=== PATIENT | female | born 1955 | race Caucasian/White ===

== ENCOUNTER → 2019-04-10 14:51 | Outpatient (CLI) | payer OTHER, SELFPAY ==
[2019-04-10 15:27] LABS: Add Manual Diff / Slide Review NO; Basophils Absolute Auto 100 /uL (0-100); Basophils Percent Auto 1.5 % (0-2); Eosinophils Absolute Auto 200 /uL (0-450); Eosinophils Percent Auto 3.2 % (2-4); Hematocrit 42.2 % (36-46); Lymphocytes Absolute Auto 2700 /uL (1100-4500); Lymphocytes Percent Auto 39.1 % (25-40); Mean Corpuscular HGB Conc 35.6 % (30-36); Mean Corpuscular Hemoglobin 35.4 PG (26-34); Mean Corpuscular Volume 99.4 fL (80-100); Monocytes Absolute Auto 400 /uL (0-900); Monocytes Percent Auto 6.5 % (3-14); Neutrophils Absolute Auto 3500 /uL (1500-7000); Neutrophils Percent Auto 49.7 % (50-75); Platelet Count 287 X10^3/uL (150-400); Red Blood Cell Count 4.24 X10^6/uL (4.0-5.2); Red Cell Distribution Width 12.9 % (11.6-14.8); White Blood Cell Count 6.9 X10^3/uL (4.5-11.0)
[2019-04-10 17:22] LABS: BUN Creatinine Ratio 22.5 (6-22); Blood Urea Nitrogen 9 mg/dL (7-17); Calcium 10.1 mg/dL (8.4-10.2); Carbon Dioxide 27 mmol/L (22-32); Chloride 101 mmol/L (98-107); Estimated Glomerular Filt Rate > 60.0 mL/min (>60); Glucose 90 mg/dL (80-110); HEMOLYSIS < 15 (0-50); Potassium 3.7 mmol/L (3.4-5.1); Sodium 136 mmol/L (137-145)
== END ==
PROVIDERS: Family Provider Family Medicine; PCP Family Medicine; Visit Provider Orthopaedic Surgery
DX: Z01.818 Encounter for other preprocedural examination (principal)
CPT/HCPCS: 36415; 80048; 85025

== ENCOUNTER 2019-04-14 05:52 | Inpatient (IN) | payer OTHER, SELFPAY ==
[2019-04-12 07:58] VITALS: BMI 22.3
[2019-04-14] VITALS (18 sets, daily range): BP systolic 90–127; BP diastolic 45–79; PULSE 67–86; RESP 10–18; TEMP 36–36.9; O2SAT 92–100; BMI 22.3
--- NOTE | 2019-04-14 | DI.RAD.S_ITS ---
PROCEDURE: XR LUMBAR SPINE 2-3V INDICATIONS: L5-S1 TLIF TECHNIQUE: 2 views of the lumbar spine were acquired. COMPARISON: None. FINDINGS: 2 spot fluoroscopic intraoperative views demonstrating L5-S1 posterior spinal fixation with interbody cage graft. Dictated by: Ethan Paulson M.D. on 04/14/2019 at 12:19 Approved by: Ethan Paulson M.D. on 04/14/2019 at 12:21
[2019-04-14] MEDS: ACETAMINOPHEN 325 MG TABLET 975 MG PO (07:02)
[2019-04-14] MEDS: LACTATED RINGERS 1,000 ML 42 ML IV ×2 (07:03→09:18)
[2019-04-14] MEDS: GABAPENTIN 300 MG CAPSULE PO ×2 (07:03→20:49)
--- NOTE | 2019-04-14 07:24 | PM.PREOP ---
Pre-operative Note Interval Note History & Physical reviewed/Exam performed by Physician: Yes Changes to H&P: No
[2019-04-14] MEDS: MIDAZOLAM 2 MG/2 ML VIAL IV (07:40)
[2019-04-14] MEDS: CLINDAMYCIN 600 MG/50 ML PIGGYBACK 50 MG IV ×3 (07:45→23:57)
--- NOTE | 2019-04-14 08:26 | SUR.OPER ---
Prone on spine table, head in foam head support, padded chest and pelvic supports, gel pad at knees, lower legs supported by pillows; nipples, genitalia and toes free of pressure, arms secured on foam padded arm boards at <90 degrees abduction. Tape over blanket at thigh secured to table.
[2019-04-14] MEDS: SODIUM CHLORIDE 0.9% 1,000 ML, GENTAMICIN 80 MG IRR (08:38)
[2019-04-14] MEDS: VANCOMYCIN 1,000 MG VIAL 1000 MG TOP (08:38)
[2019-04-14] MEDS: THROMBIN (RECOMBINANT) 5,000 UNIT VIAL 5000 UNIT TOP (08:39)
[2019-04-14] MEDS: BUPIVACAINE 0.5% (PF) 4 ML, MORPHINE-PF 4 MG, BUTORPHANOL 1 MG, fentaNYL 100 MCG INJ (08:40)
--- NOTE | 2019-04-14 09:33 | PC.NURSE ---
Day shift: Pt not on AC unit at this time.
--- NOTE | 2019-04-14 10:18 | PM.OP.1 ---
Operative Date/Time/Diagnoses Date of procedure: 04/14/19 Time of procedure: 10:18 Pre-op diagnosis: Lumbar stenosis with radiculopathy Post-op diagnosis: same Procedure & Clinicians Procedure: L5-S1 TLIF (post/post innerbody fusion) with cage L5, S1 screws Iliac crest bone graft aspirate L2-3, L5-S1 laminectomies Use of microscope Placement of epidural catheter Same procedure as scheduled: Yes Indications: [age] year old female with intractable pain from stenosis. They had failed conservative management and requested operative intervention. Risks and benefits of surgery were discussed and appropriate consents were obtained. Surgeon: [facility] Nurse Practitioner: Aurora Segundo Anesthesia Type: General Operative Notes Findings: None Closure Type: primary Specimen(s): none sent Prosthetic devices, grafts, tissues, transplants, or devices: NuVasive MAS Reline screws Globus Rise cage Applied: catheter Estimated Blood Loss (mL): 10 Blood products transfused: none Procedure in detail: The patient was brought to the operating room and intubated on the table. A time-out was performed. They were then rolled over to the well-padded Charlie table in the prone position. Preoperative antibiotics were given. The back was prepped and draped in the standard sterile fashion. Using fluoroscopy, a 4 cm longitudinal incision was made to the right of the midline. We used Bovie to come down to and split the lumbodorsal fascia. Using fluoroscopy and monitoring, we then percutaneously placed Jamshidi needles down the pedicles of L5 and S1 on the right side. These were changed out to guidewires and then we tapped and then placed the NuVasive MAS Reline screw shanks. We then opened up the retractors and used Bovie to clear up the posterolateral gutter as well as medially along the lamina to the spinous processes. A bur was used to decorticate the transverse processes. We brought in the microscope. Using a combination of bur and Kerrison rongeurs, a laminectomy was performed from the right side. We cleared over past the midline and carefully depressed the dura until we were able to decompress the opposite side. We cleared out the neural foramen. This required a facetectomy to open up the foramen. This completed the laminectomy at L5-S1, which was separate and distinct from a standard approach for the interbody work as we had to decompress the nerves. We cleared up the remainder of the facet so that we would have a working channel at this point and could easily retract the exiting root as well as clearing medially below the dura and expose the disc space. The disc was prepped with bipolar and then an annulotomy was performed. We performed a diskectomy using a combination of paddles, tyler, pituitaries, and curettes. We distracted the disc using a paddle and locked the retractor in an open position. We then filled the disc space with Osteocel bone graft. We then placed the globus Rise cage under fluoroscopy and then filled this in with more bone graft. The distraction on the retractor was released to compress down. This completed the posterior interbody fusion portion of the TLIF at L5-S1. We then placed the screw heads, lea, and locked down the set screws. The wound was copiously irrigated. A small stab incision was made over the PSIS. We used a Jamshidi needle to aspirate several mL of bone marrow from the pelvis. This was mixed with the remaining Osteocel and combined with all of the locally harvested bone graft and placed in the posterolateral gutter for the posterior fusion of the TLIF at L5-S1. We then used fluoroscopy and made a 3 cm midline incision over L2-3. Bovie was used to dissect down on the right-hand side. We placed a marker to confirm our positioning. We brought in the microscope. A right-sided laminectomy was performed at L2-3. We carefully reached across and cleared the opposite side as well as out to the neural foramen until the canal was opened and checked with a ball probe. The wound was irrigated. An epidural catheter was then placed in the spinal canal by carefully depressing the dura and advancing it 6 cm cephalad under the remaining lamina without resistance. The muscle fascia was closed. The catheter was then injected with a solution containing 4 mL of 0.5% Marcaine, 1 mg Stadol, 4 mg Duramorph, and 100 mcg of fentanyl. This was injected without resistance and the catheter was pulled. We then went to the opposite side. Again using fluoroscopy, a 3 cm incision was made and Bovie was used to come down to split the fascia. Using neural monitoring and fluoroscopy, Jamshidi needles were advanced down the pedicles of L5 and S1 on the left side. These were switched over guidewires, tapped, and screws placed. We then placed a lea and locked the set screws on this side. The wound was irrigated. The fascia was closed. Vancomycin powder was placed in the wounds. The superficial and skin were closed. A sterile dressing was placed. The patient was then rolled over extubated and brought to recovery room without complications. Complications: none Post-operative Condition: stable Disposition: PACU Plan for aftercare: Inpatient. Up with physical therapy.
[2019-04-14] MEDS: fentaNYL 100 MCG/2 ML INJ 25 MCG IV (10:44)
[2019-04-14] MEDS: LORazepam 2 MG/ML INJ 0.25 MG IV (11:00)
--- NOTE | 2019-04-14 11:45 | PC.NURSE ---
Day shift: Pt on unit at approx 1145 from PACU. Report from PACU Pt Hx anxiety. Also Pt made attempts to get OOB. Will continue to monitor. BASILIA Collins is admitting Pt.
[2019-04-14] MEDS: LORazepam 0.5 MG TABLET 0.25 MG PO ×2 (12:09→20:51)
[2019-04-14] MEDS: FLUoxetine 20 MG CAPSULE PO (12:09)
[2019-04-14] MEDS: LACTATED RINGERS 1,000 ML 125 ML IV ×2 (12:09→20:50)
[2019-04-14] MEDS: CELECOXIB 200 MG CAPSULE 400 MG PO (12:09)
--- NOTE | 2019-04-14 13:12 | PC.NURSE ---
Day shift: Pt in and out of sleep. When waking up during the first hour on AC unit Pt very confused and wanting to go home as well as not knowing why she is here. Spouse at bedside for support. Pt uncomfortable and repostioned by this ghost writer and SPRAY WORKER to right side-lying postion and Pt has been asleep for approx 45 minutes now. VS WNL. SpO2 95% RA. Call light in reach. Spouse remain at bedside. international specialist made aware that Pt has been confused. May need to change room to one closer to RN stations. Will continue to monitor.
[2019-04-14] MEDS: HYDROCODONE/ACET 5/325 TABLET 2 TAB PO ×3 (13:35→20:51)
[2019-04-14] MEDS: hydrOXYzine pamoate 25 MG CAPSULE PO ×2 (13:35→23:52)
--- NOTE | 2019-04-14 14:00 | PM.CHAP ---
saw chaplain jeffries on notes. I stopped in and spoke with patient's . Patient was resting.
--- NOTE | 2019-04-14 14:46 | PT.IIE ---
Current Diagnoses Spinal stenosis, lumbar region with neurogenic claudication (04/14/19) Surgery Performed Operation Date: 04/14/19 07:45 Actual Procedures p L23 & L5S1 laminectomies, L5S1 posterior instrumented fusion (TLIF) w/ bone graft(Not Applicable) - Andi Zamarripa MD Surgical History (Last Updated 04/12/19 @ 08:09 by Jeimy Sparrow RN) History of colonoscopy (Acute) Hx of cholecystectomy (Acute) Hx of shoulder surgery (Acute) S/P epidural steroid injection (Acute) Medical History (Last Updated 04/12/19 @ 08:09 by Jeimy Sparrow RN) Anxiety (Acute) Arthritis (Acute) Colitis (Acute) Depression (Acute) GERD (gastroesophageal reflux disease) (Acute) GI bleed (Acute 10/12/13) H/O: hysterectomy (Acute) HLD (hyperlipidemia) (Acute) HTN (hypertension) (Acute) Physical Therapy Inpatient Evaluation/Re-Eval M1 PT/OT-IP Prior Functional Status Start: 04/14/19 16:57 Freq: NEEDED Status: Active Protocol: Document 04/14/19 14:46 AB (Rec: 04/14/19 17:11 AB [id number]) Medical Review Prior Functional Status Medical History Reviewed Yes Communication pt is sleepy; able to answer questions but not consistently but pt requested to get up. Mobility and Gait spouse stated that pt is independent with all mobilities and ambulation without AD Social History Household Members spouse Living Arrangements House Number of Floors (Floors) One Floor Number of Stairs To Enter/Railing? 5 steps to enter with L rail ascending Home Environment Standard Height Toilet,Tub/ Shower Home Equipment Straight Cane,Raised Toilet Seat w/Armrests,Tub Transfer Bench,Hand Held Shower,Grab Bars In Shower Employment Status Retired Additional Social History Comment spouse stated that pt has a walk in shower but there's a tub shower that is set up for pt's mother and pt can use since it is set up with the necessary equipement M2 PT-IP Current Condition Start: 04/14/19 16:57 Freq: NEEDED Status: Active Protocol: Document 04/14/19 14:46 AB (Rec: 04/14/19 17:11 AB [id number]) Physical Therapy Current Condition Current Condition Evaluation Date 04/14/19 Treatment Diagnosis s/p L5S1 TLIF; L2-3, L5S1 lami ; difficulty in walking Onset Date 04/14/19 Precautions Lumbar Precautions Log Roll,No Twisting,Limit Bending,Lifting Restriction of 10 lbs,Gait Belt above Incisional Area M3 PT-IP Subjective Start: 04/14/19 16:57 Freq: NEEDED Status: Active Protocol: Document 04/14/19 14:46 AB (Rec: 04/14/19 17:11 AB [id number]) Subjective Physical Therapy Visit Type Type Initial Evaluation Visit Start Time 14:46 Visit Stop Time 15:29 Total Visit Minutes 45 Number of PAN DEVULCANIZER HELPER Visits 0 Physical Therapy Visit Comments Patient Comments pt requested to get up from the bed Therapy Pain Assessment Pain When Pain Assessed During Mobility Pain Present Pain Present Pain Reported Location Lower Back Intensity 8 Scale Used Numeric (1 - 10) Pain Behaviors Guarding,Holding Area Pain Management Techniques Modification of Treatment,Re- positioning,Timing of Activity with Medications M4 PT-IP Mobility and Gait Start: 04/14/19 16:57 Freq: NEEDED Status: Active Protocol: Document 04/14/19 14:46 AB (Rec: 04/14/19 17:11 AB [id number]) PT-Bed Mobility Assessment Rolling Type of Rolling Log Rolling Level of Assist Maximal Assistance,1 Person Assistance Supine to Sit Supine to Sit Maximum Assistance Sit to Supine Sit to Supine Total Assistance,2 Person Assistance PT-Transfer Assessment Comments Mobility Comments BP supine 93/58. pt completed supine to sit max A and max cues for log roll bed mobility . pt was able to sit on EOB mod to max A to maintain sitting balance. pt became nonresponsive and seemed to doze off. call for nurse. pt woke up again. BP in sitting 117/68. pt unable to follow directions consistently and tends to doze off and when woken up becomes impulsive and with confusion. assist pt back in bed. completed sit to supine total A x 2 and max cues. positioned pt in bed. required max A for rolling L<> R while adjusted pad. call light and table placed within reach. left pt with spouse. PT-Balance Assessment Sitting Balance and Reactions Static Sitting Balance Ability Poor Dynamic Sitting Balance Ability Poor M5 PT-IP Objective Assessments Start: 04/14/19 16:57 Freq: NEEDED Status: Active Protocol: Document 04/14/19 14:46 AB (Rec: 04/14/19 17:11 AB [id number]) Orientation Orientation/Cognition Level of Alertness Lethargic Orientation Name Safety Awareness Decreased Safety Awareness Memory Description Short Term Impaired,Detention Impaired Gross Range of Motion Lower Extremity ROM Assessment Within Functional Limits Strength Lower Extremity Strength Assessment Bilaterally Impaired Hip 3+/5 Knee 3+/5 Muscle Tone Muscle Tone WNL Yes M6 PT-IP Treatment Start: 04/14/19 16:57 Freq: NEEDED Status: Active Protocol: Document 04/14/19 14:46 AB (Rec: 04/14/19 17:11 AB [id number]) Physical Therapy Treatment Education Education Provided Precautions,Weight Bearing Status,Post-Op Packet,Safety M7 PT-IP Assessment and Plan Start: 04/14/19 16:57 Freq: NEEDED Status: Active Protocol: Document 04/14/19 14:46 AB (Rec: 04/14/19 17:11 AB [id number]) PT Summary Assessment and Plan Potential Rehabilitation Potential Fair Status of Condition at Evaluation Evolving Summary Impairments Pain,ROM,Strength,Balance, Coordination,Sensation,Tone, Cognition,Bed Mobility, Transfers,Gait,Activity Tolerance Assessment Summary pt unable to participate much for PT and is lethargic but restless in bed. attempted to get pt up upon request but unable as pt dozes off during PT session and unable to safely follow instructions. nurse stated that pt has gotten her pain meds and is contributing to current decrease level of alertness. will have to continue to assess pt's mobility and safety. Goals Bed Mobility Goal Standby Assistance Transfer Goal Standby Assistance,Front Wheeled Walker Gait Goal Standby Assistance,Front Wheel Walker Gait Distance 150 Other Goals up/down 5 steps L rail ascending SBA Days to Meet Goals 5 Frequency of Treatment Frequency Of Treatment Twice a Day Treatment Plan Physical Therapy Treatment Plan Bed Mobility Training,Transfer Training,Gait Training, Therapeutic Exercise,Balance Retraining,Post Op Education, Discharge Planning,Hot or Cold Pack,Neuromuscular Re-ed, Coordination Retraining,Manual Therapy Recommendations To Nursing Amount of Assist Needed PT/OT Assist Only,Mechanical Lift Discharge Recommendations PT Discharge Recommendations Home with 24/7 Assist,Home Health,SNF Rehab Other Discharge Recommendations depending on progress: SNF vs home with 24/7 and homehealth PT Equipment Needed for Home Before FWW Discharge
[2019-04-14] MEDS: diphenhydrAMINE 25 MG TABLET PO (20:49)
[2019-04-14] MEDS: SENNOSIDES 8.6 MG TABLET 17.2 MG PO (20:49)
[2019-04-14] MEDS: DOCUSATE 100 MG CAPSULE PO (20:49)
[2019-04-14] MEDS: CELECOXIB 200 MG CAPSULE PO (20:49)
--- NOTE | 2019-04-14 21:14 | PC.NURSE ---
PATIENT IS ROLLING SIDE TO SIDE WELL, PAIN MANAGED WITH NORCO x2, BENADRYL GIVEN FOR ITCH.PERKINS PATENT.SCDS IN PLACE FUNCTIONING
[2019-04-14] MEDS: HYDROMORPHONE 1 MG INJ 0.5 MG IV (23:52)
[2019-04-15] VITALS (7 sets, daily range): BP systolic 102–119; BP diastolic 55–78; PULSE 73–84; RESP 15–20; TEMP 36.3–37; O2SAT 93–97
[2019-04-15] MEDS: HYDROCODONE/ACET 5/325 TABLET 2 TAB PO (01:39)
[2019-04-15] MEDS: HYDROMORPHONE 1 MG INJ 0.5 MG IV ×4 (05:52→16:06)
[2019-04-15] MEDS: hydrOXYzine pamoate 25 MG CAPSULE PO ×2 (05:55→18:20)
[2019-04-15] MEDS: LACTATED RINGERS 1,000 ML 125 ML IV ×2 (05:57→14:53)
[2019-04-15 06:06] LABS: Hematocrit 35.3 % (36-46); Hemoglobin 12.5 g/dL (12.0-16.0)
[2019-04-15 06:09] LABS: Blood Urea Nitrogen 6 mg/dL (7-17); Calcium 8.4 mg/dL (8.4-10.2); Carbon Dioxide 31 mmol/L (22-32); Chloride 96 mmol/L (98-107); Estimated Glomerular Filt Rate > 60.0 mL/min (>60); Glucose 91 mg/dL (80-110); HEMOLYSIS < 15 (0-50)
[2019-04-15 06:31] LABS: Sodium 132 mmol/L (137-145)
--- NOTE | 2019-04-15 07:55 | PM.PNPO.1 ---
Subjective Subjective Date Patient Seen: 04/15/19 Time Patient Seen: 07:55 Interval history: She has had a rough night with pain. Primarily across the back into the buttocks. No radiation going down the legs. Currently pain is 9.5/10 Exam Vital Signs (past 8 hours): - 04/15/19 03:49 Temperature 98.6 F Pulse Rate 74 Respiratory Rate 18 Blood Pressure 102/55 L Pulse Oximetry 93 Oxygen Delivery Method Nasal Cannula Oxygen Flow Rate 2 Const Orientation: alert and oriented x3 Back/Spine/Pelvis Other: Mild dry drainage. 5/5 motor both lower extremities Objective Labs Result Diagrams: 04/15/19 05:40 04/15/19 05:40 Labs: Laboratory Results - last 24 hr 04/15/19 04/15/19 05:40 05:40 Hgb 12.5 Hct 35.3 L Sodium 132 L Potassium 3.0 L Chloride 96 L Carbon Dioxide 31 BUN 6 L Creatinine 0.40 L Estimated GFR > 60.0 BUN/Creatinine Ratio 15.0 Glucose 91 Calcium 8.4 Assessment & Plan Post-op Postoperative Procedures: Procedures Operation Date: 04/14/19 07:45 Actual Procedures Side Surgeon p L23 & L5S1 laminectomies, L5S1 posterior instrumented fusion (TLIF) w/ bone graft Not Applicable Andi Zamarripa MD She is having issues with pain control. She has maxed out on her Vicodin. We are going to change her over to oxycodone so that we can get her some more medication without worrying about Tylenol. Continue to mobilize with physical therapy. Anticipate discharge home in the next 1-2 days. Hypokalemia-will start her on oral replacements and check again in the morning.
[2019-04-15] MEDS: ACETAMINOPHEN 325 MG TABLET 650 MG PO ×2 (08:27→16:06)
[2019-04-15] MEDS: LORazepam 0.5 MG TABLET 0.25 MG PO ×3 (08:28→21:20)
[2019-04-15] MEDS: ASPIRIN EC 81 MG TABLET PO (08:28)
[2019-04-15] MEDS: ATORVASTATIN 20 MG TABLET PO (08:28)
[2019-04-15] MEDS: DOCUSATE 100 MG CAPSULE PO ×2 (08:28→21:20)
[2019-04-15] MEDS: FLUoxetine 20 MG CAPSULE PO (08:29)
[2019-04-15] MEDS: OXYCODONE IR 10 MG TABLET PO ×4 (08:29→19:10)
[2019-04-15] MEDS: CELECOXIB 200 MG CAPSULE PO ×2 (08:29→21:20)
[2019-04-15] MEDS: FISH OIL 1,000 MG CAPSULE 1000 MG PO (08:30)
[2019-04-15] MEDS: PANTOPRAZOLE 40 MG TABLET PO (08:30)
[2019-04-15] MEDS: POTASSIUM CHLORIDE 20 MEQ TAB PO ×2 (08:31→17:10)
--- NOTE | 2019-04-15 08:47 | PC.NURSE ---
Addendum entered by Yarely Cota R.N. 04/15/19 14:15: PAIN/MS/ANXIETY - at pt req, life management teacher assisted pt w/fww, gait belt into br, pt experienced increased pain, anxiety, called for assistance as pt was crying and stated she couldn't get up from toilet, PT notified and Teresa in and x 2 person assisted pt to stand and slowly ambul back to bed, pain 9 on scale 0/10, trembling and tearful, able to position comfortably and given her scheduled 0.25 ativan and 0.5mg iv dilaudid now, once pt back in bed, relaxed, ice back applied, bed alarm set. Addendum entered by Yarely Cota R.N. 04/15/19 13:25: PAIN - after lunch, given 10mg po oxycodone for back discomfort 8 on scale 0/10, discussed medications, bp, advised pt no vistaril this afternoon and ivf continuing at this time, bp 102/58. Addendum entered by Yarely Cota R.N. 04/15/19 10:53: MS/PAIN/VITALS - pt up with phys therapy, using fww, ambul in room then out into hallway, on return to room became lightheaded and has pt sit in chair, no LOC, wheeled back to room and able to tsf to bed, bp 103/63, hr 70's, repositioned r side for comfort, bed alarm set. Original Note: AM NOTE - pt is alert, states back pain 9/ 1/2 on scale 0/10, appears uncomfortable and tearful, states earlier medications not providing relief, dilaudid iv only for short time, ra 95%, p80, no numbness or tingling, moving w/difficulty in bed due discomfort, given 0.5mg iv dilaudid now and in this am, new order for oxycodone and given 10mg and 0.25 lorazepam, repositioned on side after breakfast, ice pack provided, shadow drainage on barrier dsg d,i, mcintosh w/clear yellow urine, denies nausea, + flatus.
--- NOTE | 2019-04-15 10:23 | PT.IPTN ---
Current Diagnoses Spinal stenosis, lumbar region with neurogenic claudication (04/14/19) Surgery Performed Operation Date: 04/14/19 07:45 Actual Procedures p L23 & L5S1 laminectomies, L5S1 posterior instrumented fusion (TLIF) w/ bone graft(Not Applicable) - Andi Zamarripa MD Physical Therapy Treatment Note M2 PT-IP Current Condition Start: 04/14/19 16:57 Freq: NEEDED Status: Active Protocol: Document 04/14/19 14:46 AB (Rec: 04/14/19 17:11 AB [id number]) Physical Therapy Current Condition Current Condition Evaluation Date 04/14/19 Treatment Diagnosis s/p L5S1 TLIF; L2-3, L5S1 lami ; difficulty in walking Onset Date 04/14/19 Precautions Lumbar Precautions Log Roll,No Twisting,Limit Bending,Lifting Restriction of 10 lbs,Gait Belt above Incisional Area M3 PT-IP Subjective Start: 04/14/19 16:57 Freq: NEEDED Status: Active Protocol: Document 04/15/19 10:23 DLM (Rec: 04/15/19 12:49 DL [id number]) Subjective Physical Therapy Visit Type Type Treatment Note Visit Start Time 09:55 Visit Stop Time 10:23 Total Visit Minutes 28 Number of CAUSTIC PREPARER Visits 0 Physical Therapy Visit Comments Patient Comments She feels better today. She wants to go home tomorrow and knows she has to be able to walk. Patient Goals Discharge home Therapy Pain Assessment Pain When Pain Assessed During Mobility Pain Present Pain Present Pain Reported Location Lower Back Intensity 8 Scale Used Numeric (1 - 10) Description Aching,Tender Pain Behaviors Guarding,Wincing Pain Management Techniques Apply Cold,Re-positioning, Timing of Activity with Medications M4 PT-IP Mobility and Gait Start: 04/14/19 16:57 Freq: NEEDED Status: Active Protocol: Document 04/15/19 10:23 DLM (Rec: 04/15/19 12:49 DLM [id number]) PT-Bed Mobility Assessment Rolling Type of Rolling Log Rolling Level of Assist Standby Assistance Supine to Sit Supine to Sit Minimal Assistance Sit to Supine Sit to Supine Minimal Assistance,Moderate Assistance Scooting Scooting to Edge of Bed Standby Assistance PT-Transfer Assessment Sit to and From Stand Sit to and from Stand Contact Guard Assistance, Minimal Assistance,Use of Upper Extremities Equipment Transfer Assistive Device Gait Belt,Front Wheeled Walker Transfers Transfer Destination Chair Transfer Technique Stand Step Pivot Transfer Ability Level of Assist Contact Guard Assistance,Use of Upper Extremities Comments Mobility Comments No light-headedness with getting up to chair, pt staying alert today, pt wanting to walk more Gait Assessment Gait Gait Assistance Required: Contact Guard Assist Distance (Feet) 40 Assistive Devices Assistive Device Gait Belt,Front Wheeled Walker Factors Limiting Gait Function Factors Limiting Gait Function Decreased Activity Tolerance, Pain Comments Gait Comments pt became light-headed when ambulating back to her room, chair pulled up behind her to sit, symptoms improved sitting but did not resolve until back in supine, her nurse assisted with getting pt back to bed, chair rolled to bed to avoid further gait while light-headed PT-Balance Assessment Sitting Balance and Reactions Static Sitting Balance Ability Good Dynamic Sitting Balance Ability Good Standing Balance and Reactions Static Standing Balance Ability Good Dynamic Standing Balance Ability Fair Device Used FWW M5 PT-IP Objective Assessments Start: 04/14/19 16:57 Freq: NEEDED Status: Active Protocol: Document 04/14/19 14:46 AB (Rec: 04/14/19 17:11 AB [id number]) Orientation Orientation/Cognition Level of Alertness Lethargic Orientation Name Safety Awareness Decreased Safety Awareness Memory Description Short Term Impaired,Athletic Field Custodian Impaired Gross Range of Motion Lower Extremity ROM Assessment Within Functional Limits Strength Lower Extremity Strength Assessment Bilaterally Impaired Hip 3+/5 Knee 3+/5 Muscle Tone Muscle Tone WNL Yes M6 PT-IP Treatment Start: 04/14/19 16:57 Freq: NEEDED Status: Active Protocol: Document 04/15/19 10:23 DLM (Rec: 04/15/19 12:49 DL [id number]) Physical Therapy Treatment Education Education Provided Precautions,Post-Op Packet, Safety M7 PT-IP Assessment and Plan Start: 04/14/19 16:57 Freq: NEEDED Status: Active Protocol: Document 04/15/19 10:23 DLM (Rec: 04/15/19 12:49 DLM [id number]) PT Summary Assessment and Plan Summary Impairments Pain,ROM,Strength,Balance, Coordination,Sensation,Tone, Cognition,Bed Mobility, Transfers,Gait,Activity Tolerance Assessment Summary Nora was eager to increase her activity today. She tolerated light activity in the room well with FWW. While ambulating in the bird she became light-headed and had to have a chair brought to her. Nursing assisted with getting pt back to bed and checking vitals. BP low today but no significant change from earlier this AM. Pt continues to want to discharge home tomorrow. Will continue to slowly progress her activity towards that goal. Goals Bed Mobility Goal Standby Assistance Transfer Goal Standby Assistance,Front Wheeled Walker Gait Goal Standby Assistance,Front Wheel Walker Gait Distance 150 Other Goals up/down 5 steps L rail ascending SBA Days to Meet Goals 5 Frequency of Treatment Frequency Of Treatment Twice a Day Treatment Plan Physical Therapy Treatment Plan Bed Mobility Training,Transfer Training,Gait Training, Therapeutic Exercise,Balance Retraining,Post Op Education, Discharge Planning,Hot or Cold Pack,Neuromuscular Re-ed, Coordination Retraining,Manual Therapy Recommendations To Nursing Amount of Assist Needed 1 Person Assist Discharge Recommendations PT Discharge Recommendations Home with Assistance,Home Health Other Discharge Recommendations pt wants to go home and will continue to work towards that goal, she needs to continue to progress or will need short SNF stay
--- NOTE | 2019-04-15 13:19 | OT.IP.TRT ---
Current Diagnoses Spinal stenosis, lumbar region with neurogenic claudication (04/14/19) Surgery Performed Operation Date: 04/14/19 07:45 Actual Procedures p L23 & L5S1 laminectomies, L5S1 posterior instrumented fusion (TLIF) w/ bone graft(Not Applicable) - Andi Zamarripa MD Occupational Therapy Treatment Note M2 OT-IP Current Condition Start: 04/15/19 13:05 Freq: Status: Active Protocol: Document 04/15/19 13:06 CGR (Rec: 04/15/19 13:18 CGR [id number]) Occupational Therapy Current Condition Current Condition Evaluation Date 04/15/19 Treatment Diagnosis L2-3 and L5-S1 Lami and TLIF Diagnosis Onset Date 04/14/19 Post Operative Precautions Lumbar Precautions Log Roll,No Twisting,Limit Bending,Lifting Restriction of 10 lbs,Gait Belt above Incisional Area M3 OT- IP Subjective and Pain Start: 04/15/19 13:05 Freq: Status: Active Protocol: Document 04/15/19 13:06 CGR (Rec: 04/15/19 13:18 CGR [email or web address]) OT- Subjective Occupational Therapy Visit Type Type Initial Evaluation Visit Start Time 10:35 Visit Stop Time 11:30 Total Visit Minutes 55 Notes and friend present throughout session. Pt states ok for them to be present. OT Pain Assessment Pain When Pain Assessed At Rest Pain Present Pain Present Pain Reported Location Lower Back Intensity 7 Scale Used Numeric (1 - 10) Management Techniques Distraction,Re-positioning, Timing of Activity with Medications M4 OT- IP ADL's Start: 04/15/19 13:05 Freq: Status: Active Protocol: Document 04/15/19 13:06 CGR (Rec: 04/15/19 13:18 CGR [email or web address]) OT [id number] Comments OT Self-Feeding Comments Not meal time. OT ADL-Grooming General Evaluation Grooming Ability Standby Assistance Areas Needing Assistance Retrieving/Set-up of Grooming Items,Face Washing Comments OT Grooming Comments Seated in chair. OT ADL-Oral Care General Eval Oral Care Ability Standby Assistance Areas of Assistance Brushing Teeth,Retrieving/Set- Up of Items Comments Oral Care Comments Seated in chair OT ADL-Dressing Comments OT Dressing Comments Educated pt that she will not be able to dress self with back precautions. She states that she will have her assist and declined hip kit training. OT ADL-Toileting General Evaluation Toileting Ability Standby Assistance Comments OT Toileting Comments Pt requesting to go to BR for BM. Pt passed gas with minimal fecal matter noted in toilet. Able to perform pericare without assist. OT ADL-Bathing Comments OT Bathing Comments Not performed in this session. M5 OT- IP IADL's Start: 04/15/19 13:05 Freq: Status: Active Protocol: Document 04/15/19 13:06 CGR (Rec: 04/15/19 13:18 CGR [email or web address]) OT-Instrumental Activities of Daily Living Deficits IADL Deficits Identified Deficits Home Safety Awareness Awareness of Need for Assistance at Home Good Awareness Ability to Problem Solve Emergency Able to Problem Solve Situations Home Safety Comments Pt voices understanding of home safety and has family present listening to precautions. Medication Management Medication Management Caregiver Administers Money Management Money Management Caregiver Provides Assistance Meal Preparation Meal Preparation Caregiver Provides Assist Lot Attendant Lot Attendant Caregiver Provides Assist Driving Driving Caregiver Provides Assist M6 OT- IP Functional Cognition Start: 04/15/19 13:05 Freq: Status: Active Protocol: Document 04/15/19 13:06 CGR (Rec: 04/15/19 13:18 CGR [email or web address]) Cognitive Factors Limiting Selfcare Function Cognitive Ability Level of Alertness Alert Patient Orientation Name,Age,Birthday,Month,Date, Year,Day of Week,Place, Situation Attention Span Ability Capable of Focused Attention, Capable of Sustained Attention Ability to Follow Commands Able to Follow One Step Commands Memory Description No Deficits Noted Safety Awareness Decreased Recall of Precautions OT- Vision and Hearing OT- Hearing Assessment OT- Hearing Assessment WFL OT- Vision Assessment Visual Acuity Glasses For Reading Visual Attentiveness WFL Occular Pursuits WFL Visual Convergence WFL Visual Bashir WFL Diplopia Absent Visual Spacial Neglect Not Applicable M7 OT- IP Mobility and Balance Start: 04/15/19 13:05 Freq: Status: Active Protocol: Document 04/15/19 13:06 CGR (Rec: 04/15/19 13:18 CGR [email or web address]) OT- Bed Mobility Assessment Rolling Type of Rolling Log Rolling Level of Assistance Minimal Assistance Supine to Sit Supine to Sit Assist Minimal Assistance Scooting Scooting to Edge of Bed Standby Assistance OT-Transfer Assessment Sit to and From Stand Sit to and from Stand Minimal Assistance Transfers Transfer Ability Minimal Assistance Technique Transfer Destination Bed,Chair,Toilet Transfer Technique Stand Step Pivot Devices Transfer Assistive Devices Gait Belt,Front Wheeled Walker OT- Gait Assessment Gait Gait Assistance Required: Minimum Assistance Assistive Devices Assistive Device Gait Belt,Front Wheeled Walker Comments Gait Ability Comments Activities seated and mobility around the room only d/t delayed drop in BP with P.T. this AM. OT- Balance Assessment Sitting Balance and Reactions Static Sitting Balance Ability Good Dynamic Sitting Balance Ability Fair Standing Balance and Reactions Static Standing Balance Ability Fair Dynamic Standing Balance Ability Poor M8 OT- IP Objective Assessments Start: 04/15/19 13:05 Freq: Status: Active Protocol: Document 04/15/19 13:06 CGR (Rec: 04/15/19 13:18 CGR [email or web address]) OT Gross Range of Motion Upper Extremity Range of Motion Assessment Within Functional Limits OT Strength Upper Extremity Strength Assessment Within Functional Limits Hand Irrigation Worker Strength Hand Dominance Right OT- Coordination Assessment Upper Extremity Finger to Nose Test Within Functional Limits Finger Tapping Test Within Functional Limits OT-Muscle Tone Assessment Muscle Tone WNL Yes OT Sensation Assessment Comments Summary Comments No sensory deficits noted. Edema Edema Absent M9 OT- IP Assessment and Plan Start: 04/15/19 13:05 Freq: Status: Active Protocol: Document 04/15/19 13:06 CGR (Rec: 04/15/19 13:18 CGR [email or web address]) OT Summary Assessment and Plan Potential Rehabilitation Potential Excellent Analytic Complexity at Evaluation Low Summary OT Impairments Pain,Balance,Functional Mobility,Grooming,Dressing, Toileting,Bathing,Toilet Transfers,Shower Transfers Progress Towards Goals Progressing Toward Goals Assessment Summary Pt presents as a low complexity eval s/p TLIF and Lami. Pt will benefit from OT services to continue to educate on home safety and back precautions with ADLs. Recommend d/c to home vs SNF if pt improves with her mobility and safety. Goals Grooming Goal Independent Dressing Goal Independent,Dressing Stick, Indirect Sales Representative,Sock Aid Toileting Goal Independent Bathing Goal Independent Toilet Transfer Goal Independent Shower Transfer Goal Independent Days to Meet Goals 5 Frequency of Treatment Frequency Of Treatment Once a Day Treatment Plan OT Treatment Plan ADL Training,Functional Mobility,Patient/Family Education,Discharge Planning Other Treatment Recommendations and Next Shower and LB dressing if pt Treatment Focus changes her mind on wanting to learn. Discharge Recommendations OT Discharge Recommendations Home with Assistance Home Equipment Needs Pt may need a walker for home use. Bathroom at home is already set up for safe use.
--- NOTE | 2019-04-15 14:10 | PT.IPTN ---
Current Diagnoses Spinal stenosis, lumbar region with neurogenic claudication (04/14/19) Surgery Performed Operation Date: 04/14/19 07:45 Actual Procedures p L23 & L5S1 laminectomies, L5S1 posterior instrumented fusion (TLIF) w/ bone graft(Not Applicable) - Andi Zamarripa MD Physical Therapy Treatment Note M2 PT-IP Current Condition Start: 04/14/19 16:57 Freq: NEEDED Status: Active Protocol: Document 04/14/19 14:46 AB (Rec: 04/14/19 17:11 AB [id number]) Physical Therapy Current Condition Current Condition Evaluation Date 04/14/19 Treatment Diagnosis s/p L5S1 TLIF; L2-3, L5S1 lami ; difficulty in walking Onset Date 04/14/19 Precautions Lumbar Precautions Log Roll,No Twisting,Limit Bending,Lifting Restriction of 10 lbs,Gait Belt above Incisional Area M3 PT-IP Subjective Start: 04/14/19 16:57 Freq: NEEDED Status: Active Protocol: Document 04/15/19 14:10 DLM (Rec: 04/15/19 17:29 DLM [id number]) Subjective Physical Therapy Visit Type Type Treatment Note Visit Start Time 13:55 Visit Stop Time 14:10 Total Visit Minutes 15 Number of POST OFFICE MANAGER Visits 0 Physical Therapy Visit Comments Patient Comments She describes cramping and pain in right buttock going into LE Therapy Pain Assessment Pain When Pain Assessed During Mobility Pain Present Pain Present Pain Reported Location Lower Back Intensity 10 Scale Used Numeric (1 - 10) Description Aching,Cramping,Tender Pain Behaviors Guarding,Holding Area,Wincing Pain Management Techniques Apply Cold,Re-positioning, Timing of Activity with Medications M4 PT-IP Mobility and Gait Start: 04/14/19 16:57 Freq: NEEDED Status: Active Protocol: Document 04/15/19 14:10 DLM (Rec: 04/15/19 17:29 DLM [id number]) PT-Bed Mobility Assessment Rolling Type of Rolling Log Rolling Level of Assist Standby Assistance,Minimal Assistance Sit to Supine Sit to Supine Minimal Assistance Scooting Scooting to Edge of Bed Standby Assistance PT-Transfer Assessment Sit to and From Stand Sit to and from Stand Minimal Assistance,Moderate Assistance,Use of Upper Extremities Equipment Transfer Assistive Device Gait Belt,Front Wheeled Walker Transfers Transfer Destination Bed,Toilet Transfer Technique Stand Step Pivot Transfer Ability Level of Assist Minimal Assistance,Use of Upper Extremities Comments Mobility Comments Pt up to toilet with nursing when increased pain and cramping started in right buttock area. Coordinated with nursing to get her justo to bed . Nursing managed IV pole. Noted pt decreased weight bearing on right LE in attempt to manage her pain during gait toilet to bed. Gait Assessment Gait Gait Assistance Required: Minimum Assistance Distance (Feet) 8 Assistive Devices Assistive Device Gait Belt,Front Wheeled Walker Factors Limiting Gait Function Factors Limiting Gait Function Decreased Activity Tolerance, Pain Comments Gait Comments no light-headedness this visit , her pain limited any further activity M5 PT-IP Objective Assessments Start: 04/14/19 16:57 Freq: NEEDED Status: Active Protocol: Document 04/14/19 14:46 AB (Rec: 04/14/19 17:11 AB [id number]) Orientation Orientation/Cognition Level of Alertness Lethargic Orientation Name Safety Awareness Decreased Safety Awareness Memory Description Short Term Impaired,Dump Truck Operator Impaired Gross Range of Motion Lower Extremity ROM Assessment Within Functional Limits Strength Lower Extremity Strength Assessment Bilaterally Impaired Hip 3+/5 Knee 3+/5 Muscle Tone Muscle Tone WNL Yes M6 PT-IP Treatment Start: 04/14/19 16:57 Freq: NEEDED Status: Active Protocol: Document 04/15/19 14:10 DLM (Rec: 04/15/19 17:29 DL [id number]) Physical Therapy Treatment Education Education Provided Precautions,Post-Op Packet, Safety M7 PT-IP Assessment and Plan Start: 04/14/19 16:57 Freq: NEEDED Status: Active Protocol: Document 04/15/19 14:10 DLM (Rec: 04/15/19 17:29 [facility] [id number]) PT Summary Assessment and Plan Summary Impairments Pain,ROM,Strength,Balance, Coordination,Sensation,Tone, Cognition,Bed Mobility, Transfers,Gait,Activity Tolerance Progress Towards Goals Slow Progress due to Pain,Slow Progress due to Activity Tolerance Assessment Summary Pt had increased pain with geting up to toilet with FWW. The pain included cramping in right buttock area that limited her activity tolerance . Pt had to return to bed to manage her pain. Her progress continues to be slow. Unsure if she will be ready for discharge home tomorrow. If slow progress continues she may benefit from SNF rehab. Goals Bed Mobility Goal Standby Assistance Transfer Goal Standby Assistance,Front Wheeled Walker Gait Goal Standby Assistance,Front Wheel Walker Gait Distance 150 Other Goals up/down 5 steps L rail ascending SBA Days to Meet Goals 5 Frequency of Treatment Frequency Of Treatment Twice a Day Treatment Plan Physical Therapy Treatment Plan Bed Mobility Training,Transfer Training,Gait Training, Therapeutic Exercise,Balance Retraining,Post Op Education, Discharge Planning,Hot or Cold Pack,Neuromuscular Re-ed, Coordination Retraining,Manual Therapy Recommendations To Nursing Amount of Assist Needed 1 Person Assist Discharge Recommendations PT Discharge Recommendations Home with Assistance,Home Health Other Discharge Recommendations pt wants to go home and will continue to work towards that goal, she needs to continue to progress or will need short SNF stay
--- NOTE | 2019-04-15 17:12 | PC.NURSE ---
Addendum entered by Natividad Sanchez R.N. 04/15/19 22:45: IV pump continued to beep distal occlusion, very positional and slightly leaky. IV removed, restarted to right wrist. IV is now saline locked as her urine output was >2000 in the last 8 hours. Pt has continued to report severe pain about 2 hours after oxycodone given, needing IV Dilaudid for breakthru pain x 2. Vistaril given for c/o itching x 1. Slightly anxious throughout night, appears to correlate with increased pain & discomfort. Ambulated to BR x 1 with SPINNING AND WINDING SUPERVISOR, BP's are stable & she denied any lightheadedness or dizziness when ambulating or sitting on toilet. Now dozing, side-lying right side with pillows to support her. Fall precautions in place, alarm active & call button is in her reach. Original Note: Shift note: Patient laying in bed, crying, restless & turning from [id number]. Oriented x3 and situation. Spouse at her side. She rates back and right leg pain 9/10, asking for pain medication. Having full body tremors while talking to nurse. Medicated with Dilaudid 0.5 mg IV as well as oxycodone 10 mg. After 45 minute rest period I found her dozing, eyes closed. Wakes quickly to voice, reports pain down to a 7, maybe even a 6. Refused meal, requesting to rest at this time. Back drsg is dry/intact w/shadow drainage. Patient encouraged to logroll, laying on right side. I found IV beeping distal occlusion, when opsite removed I found the cannula kinked, able to flush and get IVF infusing again. Drsg changed, secured w/tape & mesh stockinette. Fall precautions in place, alarm active for safety.
[2019-04-15] MEDS: HYDROMORPHONE 0.5 MG INJ IV (21:19)
[2019-04-15] MEDS: SENNOSIDES 8.6 MG TABLET 17.2 MG PO (21:20)
[2019-04-15] MEDS: GABAPENTIN 300 MG CAPSULE PO (21:20)
[2019-04-16] VITALS: BP 118/62; PULSE 81; RESP 18; TEMP 36.3; O2SAT 96
[2019-04-16] MEDS: hydrOXYzine pamoate 25 MG CAPSULE PO ×2 (00:05→10:01)
[2019-04-16] MEDS: OXYCODONE IR 10 MG TABLET PO ×4 (00:05→09:57)
[2019-04-16 03:51] VITALS: BP 136/65; PULSE 82; RESP 18; TEMP 36.9; O2SAT 97
[2019-04-16 05:23] LABS: Blood Urea Nitrogen 4 mg/dL (7-17); Calcium 8.8 mg/dL (8.4-10.2); Carbon Dioxide 31 mmol/L (22-32); Chloride 100 mmol/L (98-107); Estimated Glomerular Filt Rate > 60.0 mL/min (>60); Glucose 95 mg/dL (80-110); HEMOLYSIS < 15 (0-50); Potassium 3.4 mmol/L (3.4-5.1); Sodium 135 mmol/L (137-145)
[2019-04-16] MEDS: ACETAMINOPHEN 325 MG TABLET 650 MG PO (06:49)
[2019-04-16] MEDS: ASPIRIN EC 81 MG TABLET PO (08:08)
[2019-04-16] MEDS: CELECOXIB 200 MG CAPSULE PO (08:08)
[2019-04-16] MEDS: FLUoxetine 20 MG CAPSULE PO (08:08)
[2019-04-16] MEDS: LISINOPRIL 20 MG TABLET 40 MG PO (08:08)
[2019-04-16] MEDS: ATORVASTATIN 20 MG TABLET PO (08:08)
[2019-04-16] MEDS: POTASSIUM CHLORIDE 20 MEQ TAB PO (08:08)
[2019-04-16] MEDS: DOCUSATE 100 MG CAPSULE PO (08:08)
[2019-04-16] MEDS: PANTOPRAZOLE 40 MG TABLET PO (08:08)
[2019-04-16] MEDS: CHLORTHALIDONE 25 MG TABLET 12.5 MG PO (08:10)
[2019-04-16] MEDS: LORazepam 0.5 MG TABLET 0.25 MG PO (08:10)
[2019-04-16] MEDS: FISH OIL 1,000 MG CAPSULE 1000 MG PO (08:10)
[2019-04-16 08:45] VITALS: BP 109/61; PULSE 75; RESP 18; TEMP 36.1; O2SAT 97
--- NOTE | 2019-04-16 09:17 | P.DS_ITS ---
History of Present Illness History of Present Illness Chief complaint: [id number] Discharge Providers Provider Date of admission: 04/14/19 05:52 Discharge Date: 04/16/19 Primary care physician: Tony Napoles MD Consults: 04/14/19 11:43 Consult to Occupational Therapy Evaluate & Treat Comment: Physician Instructions: Evaluate and treat Consult to Physical Therapy Evaluate & Treat Comment: Physician Instructions: Evaluate and Treat 04/14/19 11:57 Consult to Dietitian, Adult Routine Comment: Reason For Exam: recent wt loss in the past wk. 5 lbs Consult to Pastoral Services Routine Comment: per request Discharge provider: Luis Alfredo Soto MD Summary Hospital Course Discharge Diagnosis: Lumbar degenerative disc disease/stenosis. Hospital Course: Patient underwent a TLIF procedure on the day of admission by Dr. hernández. She had a syncopal episode postop day 1 after surgery and did have a low sodium. She was doing well on the day of discharge and her sodium had no rmalized. Pain was well controlled. Status at Discharge Cognitive/behavioral status at discharge: oriented Functional status at discharge: independent ambulation Overall status at discharge: patient is progressing back to baseline Time Spent with Patient Time spent: Less than 30 minutes Exam Vital Signs (past 8 hours): - 04/16/19 03:51 Temperature 98.5 F Pulse Rate 82 Respiratory Rate 18 Blood Pressure 136/65 Pulse Oximetry 97 Oxygen Delivery Method Room Air Oxygen Flow Rate 0 Narrative Exam Narrative: Patient is fully alert and oriented. Dressing is clean and dry. Lower extremities are neurovascularly intact. Objective Labs Result Diagrams: 04/15/19 05:40 04/16/19 04:50 Labs: Laboratory Results - last 24 hr 04/16/19 04:50 Sodium 135 L Potassium 3.4 Chloride 100 Carbon Dioxide 31 BUN 4 L Creatinine 0.40 L Estimated GFR > 60.0 BUN/Creatinine Ratio 10.0 Glucose 95 Calcium 8.8 Discharge Plan Discharge Plan Patient Disposition: Home Discharge comment: f/u 1.5 wks Discharge Med Rec/Prescriptions Prescriptions: New celecoxib [Celebrex] 200 mg Capsule 200 mg PO BID PRN (Reason: pain) Qty: 60 RF: 0 docusate sodium [DOK] 100 mg Capsule 100 mg PO BID PRN (Reason: constipation) Qty: 40 RF: 0 hydroxyzine pamoate 25 mg Capsule 25 mg PO Q4HR PRN (Reason: spasms) Qty: 20 RF: 0 oxycodone 5 mg Tablet See Rx Instructions .ROUTE .COMPLEX PRN (Reason: Pain, Moderate (4-6)) Qty: 40 RF: 0 Continued fluoxetine 20 MG tablet 20 mg PO QDAY Qty: 0 RF: 0 chlorthalidone 25 mg Tablet 12.5 mg PO DAILY RF: 0 omeprazole 40 mg Capsule,Delayed Release(Dr/Ec) 40 mg PO DAILY RF: 0 lorazepam 0.5 mg Tablet 0.25 mg PO BID-TID PRN (Reason: Anxiety) RF: 0 albuterol sulfate [ProAir HFA] 90 mcg/actuation Hfa Aerosol Inhaler 2 puff INHALATION Q6H PRN (Reason: Shortness Of Breath) RF: 0 lisinopril 40 mg Tablet 40 mg PO DAILY RF: 0 atorvastatin 20 mg Tablet 20 mg PO DAILY RF: 0 aspirin [Aspir-81] 81 mg Tablet,Delayed Release (Dr/Ec) 81 mg PO DAILY RF: 0 omega 5-[id number]-[id number]-fish oil [Fish Oil] 1,000 mg (120 mg-180 mg) Capsule 1 cap PO DAILY RF: 0 Follow up/Referrals: Tony Napoles MD [Primary Care Provider] - Provider Discharge Instructions Diet: Diet as Tolerated Activity: limited BLT 10 lbs max Skin/Wound/Dressing Care Report to your healthcare provider any signs of infection, such as:: chills, fever, night sweats, increased pain, unusual drainage and unusual redness Dressing: may change dressing and shower POD5 Visit Report/Discharge Packet Instructions: DI for Transforaminal Lumbar Interbody Fusion Stand Alone Forms: Surgery Discharge Discharge Data Primary Care Provider: Tony Napoles
--- NOTE | 2019-04-16 09:19 | PT.IPTN ---
Current Diagnoses Spinal stenosis, lumbar region with neurogenic claudication (04/14/19) Surgery Performed Operation Date: 04/14/19 07:45 Actual Procedures p L23 & L5S1 laminectomies, L5S1 posterior instrumented fusion (TLIF) w/ bone graft(Not Applicable) - Andi Zamarripa MD Physical Therapy Treatment Note M2 PT-IP Current Condition Start: 04/14/19 16:57 Freq: NEEDED Status: Active Protocol: Document 04/14/19 14:46 AB (Rec: 04/14/19 17:11 AB [id number]) Physical Therapy Current Condition Current Condition Evaluation Date 04/14/19 Treatment Diagnosis s/p L5S1 TLIF; L2-3, L5S1 lami ; difficulty in walking Onset Date 04/14/19 Precautions Lumbar Precautions Log Roll,No Twisting,Limit Bending,Lifting Restriction of 10 lbs,Gait Belt above Incisional Area M3 PT-IP Subjective Start: 04/14/19 16:57 Freq: NEEDED Status: Active Protocol: Document 04/16/19 08:51 CLB (Rec: 04/16/19 09:34 CLB [id number]) Subjective Physical Therapy Visit Type Type Treatment Note Visit Start Time 08:51 Visit Stop Time 09:19 Total Visit Minutes 28 Number of MARKETING ADMIN Visits 1 Physical Therapy Visit Comments Patient Comments Pt states she is feeling much better and wants to go home today. Therapy Pain Assessment Pain When Pain Assessed At Rest Pain Present Pain Present Pain Reported Location Right Hip Intensity 4 Scale Used Numeric (1 - 10) M4 PT-IP Mobility and Gait Start: 04/14/19 16:57 Freq: NEEDED Status: Active Protocol: Document 04/16/19 08:51 CLB (Rec: 04/16/19 09:34 CLB [id number]) PT-Bed Mobility Assessment Rolling Type of Rolling Log Rolling Level of Assist Standby Assistance Supine to Sit Supine to Sit Standby Assistance Sit to Supine Sit to Supine Standby Assistance Scooting Scooting to Edge of Bed Standby Assistance PT-Transfer Assessment Sit to and From Stand Sit to and from Stand Standby Assistance,Contact Guard Assistance,Use of Upper Extremities Equipment Transfer Assistive Device Gait Belt,Front Wheeled Walker Transfers Transfer Destination Bed,Chair Transfer Ability Level of Assist Contact Guard Assistance,Use of Upper Extremities Comments Mobility Comments Pt able to perform all bed mobility SBA with good awareness to follow back precautions with log roll and scooting. Gait Assessment Gait Gait Assistance Required: Standby Assistance,Contact Guard Assist,1 Person Assist Distance (Feet) 200 Assistive Devices Assistive Device Gait Belt,Front Wheeled Walker Factors Limiting Gait Function Factors Limiting Gait Function Decreased Activity Tolerance, Pain Comments Gait Comments Pt able to ambulate ~200ft CGA to start then able to walk SBA with slow but steady step through gait pattern. Pt stated pain in hip decreased to 2/10 and back pain was minimal. Stair Climbing Assessment Evaluation Level of Assist On Stairs Contact Guard Assistance,1 Person Assistance Devices Stair Climbing Assistive Devices Left Railing Technique/Endurance Stair Climbing Direction Ascend and Descend Stair Climbing Technique Step to Step Number of Steps Climbed 3 Stair Climbing Set # Repetitions (reps) 2 Comments Stair Climbing Comments Pt able to climb stairs with slight increase in pain in right hip. Encouraged pt to go up steps with LLE and down with RLE to decrease hip pain. Pt able to then go up/down steps with , Artis assisting her. M5 PT-IP Objective Assessments Start: 04/14/19 16:57 Freq: NEEDED Status: Active Protocol: Document 04/14/19 14:46 AB (Rec: 04/14/19 17:11 AB [id number]) Orientation Orientation/Cognition Level of Alertness Lethargic Orientation Name Safety Awareness Decreased Safety Awareness Memory Description Short Term Impaired,Care Home Impaired Gross Range of Motion Lower Extremity ROM Assessment Within Functional Limits Strength Lower Extremity Strength Assessment Bilaterally Impaired Hip 3+/5 Knee 3+/5 Muscle Tone Muscle Tone WNL Yes M6 PT-IP Treatment Start: 04/14/19 16:57 Freq: NEEDED Status: Active Protocol: Document 04/16/19 08:51 CLB (Rec: 04/16/19 09:34 CLB [id number]) Physical Therapy Treatment Exercises Exercises Ankle Pumps Education Education Provided Precautions,Safety Other Treatments Other Treatment Performed Discussed with pt importance of doing AP's during times of inactivity throughout the day. M7 PT-IP Assessment and Plan Start: 04/14/19 16:57 Freq: NEEDED Status: Active Protocol: Document 04/16/19 08:51 CLB (Rec: 04/16/19 09:34 CLB [id number]) PT Summary Assessment and Plan Summary Impairments Pain,ROM,Strength,Balance, Coordination,Sensation,Tone, Cognition,Bed Mobility, Transfers,Gait,Activity Tolerance Progress Towards Goals Progressing Toward Goals Assessment Summary Pt has improved with all bed mobility, gait distance and has climbed stairs safely with assist of . Pt had no dizziness or pain above a 4/10 during tx. Pt seems able to d /c home with to assist . Goals Bed Mobility Goal Standby Assistance Transfer Goal Standby Assistance,Front Wheeled Walker Gait Goal Standby Assistance,Front Wheel Walker Gait Distance 150 Other Goals up/down 5 steps L rail ascending SBA Days to Meet Goals 5 Frequency of Treatment Frequency Of Treatment Twice a Day Treatment Plan Physical Therapy Treatment Plan Bed Mobility Training,Transfer Training,Gait Training, Therapeutic Exercise,Balance Retraining,Post Op Education, Discharge Planning,Hot or Cold Pack,Neuromuscular Re-ed, Coordination Retraining,Manual Therapy Recommendations To Nursing Amount of Assist Needed 1 Person Assist Discharge Recommendations PT Discharge Recommendations Home with Assistance,Home Health Equipment Needed for Home Before Pt wants to buy FWW from Discharge [facility] not issued from hospital. Pts will purchase walker.
--- NOTE | 2019-04-16 11:05 | PC.NURSE ---
Addendum entered by Eloise Parr R.N. 04/16/19 11:11: Additional d/c info- Patient walked halls and did stairs with PT and had no dizziness, lightheadedness or other adverse symptoms. Had voided 3 times since mcintosh was dc'd earlier this morning. All voids were unmeasured, but she stated she felt like she emptied her bladder and denied post-void urgency. Original Note: Discharge: IV dc'd intact. Surgical dressings removed (after clarification over phone by Dr Soto) and replaced with Coversite dressings. 3 incisions were well-approximated with sutures, no active drainage or bleeding. There was some bruising noted around incision sites and some redness/small blisters at the edges of where the Tegaderm had been. Reviewed all d/c instructions thoroughly with patient. Given scripts for Oxycodone, Vistaril, Celebrex and Docusate. Encouraged to take Docusate as long as she's taking the Oxycodone, and instructed only to take the other meds PRN as ordered. Verbalized understanding of all instructions and stated no further questions. All personal belongings collected and sent with patient. Taken out to private vehicle via wheelchair by this tech writer.
--- NOTE | 2019-04-16 12:13 | CM.IDA ---
Initial DCP Assessment Note: Pt is a 63 yo female, resident of [place], now POD#2 from spinal surgery w/ Dr Zamarripa PCP: Tony Dave Payer: Dar/VERONICA A Reviewed chart, pt discussed in multidisciplinary rounds this morning. Therapy has cleared pt for return home w/family to assist and pt has planned for home, DC order from Dr Soto has already been initiated this morning. Pt had a syncopal episode POD#1, pt had low sodium which has since resolved. Therapy team had thought POD#1 that pt may require SNF but pt has dramatically improved, spouse has completed cg training and no barriers to safe DC home have been identified. No needs expected from DC planning team . DWAIT Phipps
== END 2019-04-16 11:11 | disposition home or self-care (01) | DRG 455 ==
PROVIDERS: Admitting Provider Orthopaedic Surgery; Family Provider Family Medicine; PCP Family Medicine; Visit Provider Orthopaedic Surgery
PROC: 0SG30AJ Fusion of Lumbosacral Joint with Interbody Fusion Device, Posterior Approach, Anterior Column, Open Approach (ICD-10-PCS; principal; 2019-04-14 07:45)
DX: M48.062 Spinal stenosis, lumbar region with neurogenic claudication (principal); F17.210 Nicotine dependence, cigarettes, uncomplicated; R55 Syncope and collapse
CPT/HCPCS: 36415; 72100; 76000; 80048; 85014; 85018; 94762; 97116; 97162; 97165; 97530; 97535; 99406; C1776; A9270; J0330; J0595; J1170; J2060; J2250; J2274; J2704; J3010

== ENCOUNTER → 2019-07-04 07:38 | Outpatient (CLI) | payer OTHER, SELFPAY ==
[2019-04-14 11:45] VITALS: BMI 22.3
[2019-07-04 09:06] LABS: Blood Urea Nitrogen 8 mg/dL (7-17); Calcium 9.4 mg/dL (8.4-10.2); Carbon Dioxide 29 mmol/L (22-32); Chloride 100 mmol/L (98-107); Cholesterol 212 mg/dL (140-199); Estimated Glomerular Filt Rate > 60.0 mL/min (>60); Glucose 73 mg/dL (80-110); HDL Cholesterol 64 mg/dL (40-60); HEMOLYSIS < 15 (0-50); LDL Cholesterol Calculated 107 mg/dL (<100); Potassium 3.4 mmol/L (3.4-5.1); Sodium 136 mmol/L (137-145); Triglycerides 206 mg/dL (35-150); VLDL Cholesterol Calculated 41 mg/dL (2-30)
== END ==
PROVIDERS: PCP Family Medicine; Visit Provider Family Medicine
DX: E78.00 Pure hypercholesterolemia, unspecified (principal); I10 Essential (primary) hypertension
CPT/HCPCS: 36415; 80048; 80061

== ENCOUNTER → 2019-08-23 08:24 | Outpatient (CLI) | payer OTHER, SELFPAY ==
[2019-04-14 11:45] VITALS: BMI 22.3
--- NOTE | 2019-08-23 | DI.MG.S_ITS ---
BILATERAL DIGITAL SCREENING MAMMOGRAM 3D/2D WITH CAD: 08/23/2019 CLINICAL: Routine screening. Family history of breast cancer. Comparison is made to exams dated: 11/05/2017 mammogram, 08/30/2015 mammogram, and 07/27/2014 mammogram - [facility]. The tissue of both breasts is predominantly fatty. Current study was also evaluated with a Computer Aided Detection (CAD) system. No significant masses, calcifications, or other findings are seen in either breast. There has been no significant interval change. IMPRESSION: NEGATIVE There is no mammographic evidence of malignancy. A 1 year screening mammogram is recommended. This exam was interpreted at Station ID: [id number]. NOTE: For mammograms, a report in lay terms will be sent to the patient. Approximately 15% of breast malignancies will not be visualized mammographically. In the management of a palpable breast mass, a negative mammogram must not discourage biopsy of a clinically suspicious lesion. Electronically Signed By: Eden [email or web address]/jesse:08/23/2019 15:21:56 letter sent: Normal Exam ACR BI-RADS Category 1: Negative 3341F
== END ==
PROVIDERS: PCP Family Medicine; Visit Provider Family Medicine
DX: Z12.31 Encounter for screening mammogram for malignant neoplasm of breast (principal); Z80.3 Family history of malignant neoplasm of breast
CPT/HCPCS: 77063; 77067

== ENCOUNTER → 2020-05-20 08:15 | Outpatient (CLI) | payer OTHER, SELFPAY ==
[2019-04-14 11:45] VITALS: BMI 22.3
[2020-05-20 09:20] LABS: Blood Urea Nitrogen 9 mg/dL (7-17); Estimated Glomerular Filt Rate > 60.0 mL/min (>60)
== END ==
PROVIDERS: PCP Family Medicine; Referring Provider Orthopaedic Surgery; Visit Provider Orthopaedic Surgery
DX: Z98.1 Arthrodesis status (principal); S39.012D Strain of muscle, fascia and tendon of lower back, subsequent encounter
CPT/HCPCS: 36415; 82565; 84520

== ENCOUNTER → 2020-08-05 07:06 | Outpatient (CLI) | payer OTHER, SELFPAY ==
[2019-04-14 11:45] VITALS: BMI 22.3
[2020-08-05 08:43] LABS: Add Manual Diff / Slide Review NO; Basophils Absolute Auto 0 /uL (0-100); Basophils Percent Auto 0.7 % (0-2); Eosinophils Absolute Auto 200 /uL (0-450); Eosinophils Percent Auto 2.7 % (2-4); Hematocrit 42.4 % (36-46); Hemoglobin 14.7 g/dL (12.0-16.0); Lymphocytes Absolute Auto 2400 /uL (1100-4500); Lymphocytes Percent Auto 35.9 % (25-40); Mean Corpuscular HGB Conc 34.5 % (30-36); Mean Corpuscular Hemoglobin 33.2 PG (26-34); Monocytes Absolute Auto 400 /uL (0-900); Monocytes Percent Auto 6.4 % (3-14); Neutrophils Absolute Auto 3600 /uL (1500-7000); Neutrophils Percent Auto 54.3 % (50-75); Platelet Count 311 X10^3/uL (150-400); Red Blood Cell Count 4.42 X10^6/uL (4.0-5.2); Red Cell Distribution Width 12.5 % (11.6-14.8); White Blood Cell Count 6.6 X10^3/uL (4.5-11.0)
[2020-08-05 09:10] LABS: Alanine Aminotransferase 19 IU/L (<35); Albumin 4.1 g/dL (3.5-5.0); Albumin Globulin Ratio 1.3 (1.0-2.8); Alkaline Phosphatase 71 U/L (38-126); Aspartate Aminotransferase 23 IU/L (14-36); BUN Creatinine Ratio 22.9 (6-22); Bilirubin Total 0.4 mg/dL (0.2-1.3); Blood Urea Nitrogen 11 mg/dL (7-17); Calcium 9.3 mg/dL (8.4-10.2); Carbon Dioxide 31 mmol/L (22-32); Chloride 102 mmol/L (98-107); Cholesterol 197 mg/dL (140-199); Estimated Glomerular Filt Rate > 60.0 mL/min (>60); Globulin 3.2 g/dL (1.7-4.1); Glucose 92 mg/dL (80-110); HDL Cholesterol 49 mg/dL (40-60); HEMOLYSIS < 15 (0-50); LDL Cholesterol Calculated 114 mg/dL (<100); Potassium 3.2 mmol/L (3.4-5.1); Sodium 138 mmol/L (137-145); Total Protein 7.3 g/dL (6.3-8.2); Triglycerides 172 mg/dL (35-150)
== END ==
PROVIDERS: PCP Family Medicine; Referring Provider Family Medicine; Visit Provider Family Medicine
DX: I10 Essential (primary) hypertension (principal)
CPT/HCPCS: 36415; 80053; 80061; 85025

== ENCOUNTER → 2021-04-29 08:45 | Outpatient (CLI) | payer OTHER, SELFPAY ==
[2019-04-14 11:45] VITALS: BMI 22.3
--- NOTE | 2021-04-29 | DI.MG.S_ITS ---
BILATERAL DIGITAL DIAGNOSTIC MAMMOGRAM 3D/2D: 04/29/2021 CLINICAL: Left breast tongling and itching. Family history of breast cancer. Comparison is made to exams dated: 08/23/2019 mammogram - [facility], 11/05/2017 mammogram, and 08/30/2015 mammogram - [facility]. There are scattered fibroglandular elements in both breasts. No significant masses, calcifications, or other findings are seen in either breast. IMPRESSION: NEGATIVE There is no abnormality seen in the left breast or in the left axilla to correspond with the area of clinical concern in the upper outer quadrant and in the left axilla, however, clinical followup is recommended. There is no mammographic evidence of malignancy. A 1 year screening mammogram is recommended. This exam was interpreted at Station ID: [id number]. NOTE: For mammograms, a report in lay terms will be sent to the patient. Approximately 15% of breast malignancies will not be visualized mammographically. In the management of a palpable breast mass, a negative mammogram must not discourage biopsy of a clinically suspicious lesion. Electronically Signed By: Luis Alfredo Watkins M.D. [email or web address]/:04/29/2021 10:35:32 letter sent: Clinical Evaluation ACR BI-RADS Category 1: Negative 3341F
== END ==
PROVIDERS: PCP Family Medicine; Referring Provider Family Medicine; Visit Provider Family Medicine
DX: N64.9 Disorder of breast, unspecified (principal); Z80.3 Family history of malignant neoplasm of breast
CPT/HCPCS: 77066; G0279

== ENCOUNTER → 2021-09-22 09:51 | Outpatient (CLI) | payer OTHER, SELFPAY ==
[2019-04-14 11:45] VITALS: BMI 22.3
[2021-09-22 11:33] LABS: COVID19 -Nasal RAPID Negative (Negative)
== END ==
PROVIDERS: PCP Family Medicine; Visit Provider Family Medicine Sleep Medicine
DX: Z20.822 Contact with and (suspected) exposure to COVID-19 (principal)
CPT/HCPCS: 87635; C9803

== ENCOUNTER 2021-09-23 11:28 | Day surgery (SDC) | payer OTHER, SELFPAY ==
[2019-04-14 11:45] VITALS: BMI 22.3
== END 2021-09-23 11:30 | disposition home or self-care (01) ==
LOC: OR 11:31
PROVIDERS: PCP Family Medicine; Referring Provider Ophthalmology; Visit Provider Ophthalmology

== ENCOUNTER → 2021-10-24 11:13 | Outpatient (CLI) | payer OTHER, SELFPAY ==
[2019-04-14 11:45] VITALS: BMI 22.3
[2021-10-24 12:37] LABS: COVID19 -Nasal RAPID Negative (Negative)
== END ==
PROVIDERS: PCP Family Medicine; Visit Provider Family Medicine Sleep Medicine
DX: Z20.822 Contact with and (suspected) exposure to COVID-19 (principal)
CPT/HCPCS: 87635; C9803

== ENCOUNTER 2021-10-28 10:54 | Day surgery (SDC) | payer OTHER, SELFPAY ==
[2019-04-14 11:45] VITALS: BMI 22.3
[2021-10-28 12:30] VITALS: BP 123/68; PULSE 76; RESP 16; TEMP 36; O2SAT 98; BMI 23.3
[2021-10-28 13:01] LABS: COVID19 -Nasal RAPID Negative (Negative)
[2021-10-28 13:14] VITALS: BMI 23.3
--- NOTE | 2021-10-28 13:19 | PM.PREOP ---
Pre-operative Note Interval Note History & Physical reviewed/Exam performed by Physician: Yes Changes to H&P: No
--- NOTE | 2021-10-28 13:19 | PM.OP.1 ---
Procedure & Clinicians Procedure: Blepharoplasty both upper lids Same procedure as scheduled: Yes Indications: Drooing eyelids limiting vision Operative Notes Procedure in detail: The patient was brought to the operating suite. Marking pen and calipers were used to julia the excess skin on both upper lids. A mixture of lidocaine, marcaine and hyaluronidase was prepared. 4ml of this mixture was injected into both upper lids after intervenous sedation. The patient was prepped and draped. The marked skin of the right upper lid was incised with 15 blade. Wescot scissors were used to removed the skin and orbicularis muscle layer. The orbital septum was incised and the orbital fat the prolapsed was excised. Bleeding was controlled with cautery. 6-0 vicryl suture was used to close the incision. The same procedure was performed on the left upper eyelid. Maxitrol ointment was placed on the incision. The patient left the operating room in excellent condition.
--- NOTE | 2021-10-28 13:29 | SUR.OPER ---
Supine on eye stretcher, head on extension cradle. Arms tucked at sides. Pillow under knees.
[2021-10-28] MEDS: BUPIVACAINE 0.5% (PF) 5 ML, LIDOCAINE 1% W/EPI 5 ML, HYALURONIDASE 150 UNIT INJ (13:55)
[2021-10-28] MEDS: NEOMYCIN/POLY/DEX OPHTH OINT 1 APPLIC EYE-BOTH (13:58)
[2021-10-28 14:30] VITALS: BP 137/62; PULSE 86; RESP 16; TEMP 36.3; O2SAT 96
[2021-10-28 14:35] VITALS: BP 138/71; PULSE 87; RESP 18; O2SAT 97
[2021-10-28 14:40] VITALS: BP 133/60; PULSE 82; RESP 16; O2SAT 97
[2021-10-28 14:44] VITALS: BP 132/80; PULSE 80; RESP 14; O2SAT 97
[2021-10-28 14:49] VITALS: BP 132/74; PULSE 78; RESP 20; TEMP 36.1; O2SAT 97
== END 2021-10-28 15:06 | disposition home or self-care (01) ==
PROVIDERS: PCP Family Medicine; Referring Provider Ophthalmology; Visit Provider Ophthalmology
PROC: (CPT 15823; principal; 2021-10-28 13:15)
DX: H02.834 Dermatochalasis of left upper eyelid (principal); H02.831 Dermatochalasis of right upper eyelid; I10 Essential (primary) hypertension; K21.9 Gastro-esophageal reflux disease without esophagitis; Z72.0 Tobacco use; F41.9 Anxiety disorder, unspecified; F32.9 Major depressive disorder, single episode, unspecified; Z20.822 Contact with and (suspected) exposure to COVID-19
CPT/HCPCS: 15823; 87635; C9803; J2250; J3010; J3470

== ENCOUNTER → 2021-12-26 09:38 | Outpatient (CLI) | payer OTHER, SELFPAY ==
[2019-04-14 11:45] VITALS: BMI 22.3
--- NOTE | 2021-12-26 | DI.CT.S_ITS ---
PROCEDURE: CT LUNG LOW DOSE SCREENING INDICATIONS: Nicotine dependence, cigarettes, uncomplicated TECHNIQUE: Noncontrast 2.0-2.5 mm thick sections acquired from the pulmonary apices to the posterior costophrenic angles. 7 mm thick axial MIP, and 5 mm coronal and sagittal reformats were then acquired. A low radiation dose technique was utilized. COMPARISON: None. FINDINGS: Image quality: Diagnostic, given the low radiation dose technique. Lungs and pleura: No discrete pulmonary nodule is seen. Scattered linear scarring/atelectasis in periphery of bilateral lower lung booker are seen. No pleural effusion or pneumothorax. Central and peripheral airway is patent. Mild centrilobular emphysema is seen. Mediastinum: Heart size is normal. Trace amount of pericardial effusion is seen. No mediastinal adenopathy by size criteria. Thoracic aorta and central pulmonary arteries are normal in size. Gcms-oi-gweoixwc atherosclerotic calcifications are seen in coronary vessels. Esophagus is normal in caliber. No hiatal hernia. Bones and chest wall: No suspicious bony lesions. No vertebral body compression fractures. No axillary or supraclavicular adenopathy by size criteria. Thyroid gland is within normal limits. Abdomen: Visualized upper abdomen solid organs and bowel loops appear normal in the absence of contrast. IMPRESSION: 1. No discrete pulmonary nodule is seen. Mild centrilobular emphysema. Bibasilar scarring/atelectasis. LUNG-RADS 1 , continued annual low-dose screening CT chest if clinically indicated. 2. Zler-aj-ukyvkmoj atherosclerotic disease in coronary vessels. Trace pericardial effusion. No mediastinal or hilar lymphadenopathy. Dictated by: Wilder Lao M.D. on 12/26/2021 at 11:03 Approved by: Wilder Lao M.D. on 12/26/2021 at 12:56
== END ==
PROVIDERS: PCP Family Medicine; Referring Provider Family Medicine; Visit Provider Family Medicine
DX: F17.210 Nicotine dependence, cigarettes, uncomplicated (principal); Z71.6 Tobacco abuse counseling; J43.2 Centrilobular emphysema; J98.11 Atelectasis; I25.10 Atherosclerotic heart disease of native coronary artery without angina pectoris; I31.3 Pericardial effusion (noninflammatory)
CPT/HCPCS: 71250

== ENCOUNTER → 2022-04-07 13:28 | Outpatient (CLI) | payer OTHER, SELFPAY ==
[2019-04-14 11:45] VITALS: BMI 22.3
[2022-04-07 14:28] LABS: Alanine Aminotransferase 37 IU/L (<35); Albumin 4.1 g/dL (3.5-5.0); Albumin Globulin Ratio 1.4 (1.0-2.8); Alkaline Phosphatase 79 U/L (38-126); Aspartate Aminotransferase 30 IU/L (14-36); BUN Creatinine Ratio 16.1 (6-22); Bilirubin Total 0.5 mg/dL (0.2-1.3); Blood Urea Nitrogen 9 mg/dL (7-17); Calcium 9.5 mg/dL (8.4-10.2); Carbon Dioxide 29 mmol/L (22-32); Chloride 103 mmol/L (98-107); Cholesterol 183 mg/dL (140-199); Estimated Glomerular Filt Rate > 60 mL/min (>60); Glucose 116 mg/dL (80-110); HDL Cholesterol 44 mg/dL (40-60); HEMOLYSIS < 15 (0-50); LDL Cholesterol Calculated 98 mg/dL (<100); Potassium 3.4 mmol/L (3.4-5.1); Sodium 138 mmol/L (137-145); Total Protein 7.1 g/dL (6.3-8.2); Triglycerides 205 mg/dL (35-150)
== END ==
PROVIDERS: Family Provider Family Medicine; PCP Family Medicine; Referring Provider Family Medicine; Visit Provider Family Medicine
DX: I10 Essential (primary) hypertension (principal); E78.00 Pure hypercholesterolemia, unspecified
CPT/HCPCS: 36415; 80053; 80061

== ENCOUNTER 2022-04-27 09:00 | Outpatient (RCR) | payer OTHER, SELFPAY ==
[2019-04-14 11:45] VITALS: BMI 22.3
--- NOTE | 2022-04-02 15:57 | PT.OIE ---
Addendum entered and electronically signed by Kenny Espitia, PT 04/07/22 14:40: Please note, assessment section accidentally notes labral involvement. Should read menicsal involvement. Original Note: Current Diagnoses Chondromalacia patellae, right knee (04/02/22) Other meniscus derangements, unspecified lateral meniscus, right knee (04/02/22) Unspecified internal derangement of right knee (04/02/22) Past Medical History (Last Updated 04/12/19 @ 08:09 by Jeimy Sparrow RN) Anxiety Arthritis Colitis Depression GERD (gastroesophageal reflux disease) GI bleed (10/12/13) HLD (hyperlipidemia) HTN (hypertension) Past Surgical History (Last Updated 04/12/19 @ 08:09 by Jeimy Sparrow RN) H/O: hysterectomy History of colonoscopy Hx of cholecystectomy Hx of shoulder surgery S/P epidural steroid injection Visit Care Team Role Provider Type Tony Napoles MD Family Provider Non-Staff Primary Care Provider Specialty: Medical Address: [address] [place] [address], [id number] Email: Geno Charlton MD Attending Provider Physician Referring Provider Specialty: Orthopedics Orthopedic Surgery Address: [address] [place] [address], [id number] Email: [email or web address] [facility] Initial Evaluation PT-OP-A Visit Information Start: 04/02/22 10:17 Freq: Status: Active Protocol: Document 04/02/22 09:45 DCW (Rec: 04/02/22 10:27 [facility] [id number]) Out-Patient Physical Therapy Visit Information Visit Information Visit Type Initial Evaluation Visit Start Time 09:45 Visit Stop Time 10:15 Total Visit Minutes 30 Visit Number 1 Number of [employer]OL Visits 0 Evaluation Information Evaluation Date 04/02/22 PT-OP-B Current Condition Start: 04/02/22 10:17 Freq: Status: Active Protocol: Document 04/02/22 09:45 DCW (Rec: 04/02/22 10:27 [facility] [id number]) Current Condition History of Current Condition Onset Date 1-2 months Current Complaints Right knee pain when pivoting during weight-bearing History of Current Condition Pt is a 66 year old female presenting with a 1-2 month history of right knee pain. Pt reports no instigating injury , it just slowly started bothering her more. Pt reports that it had been bothering her for a few weeks, and then one month ago she went to see her PCP, and got an injection, which helped tremendously. Pt feeling much better now, in general her knee occasionally has a 1/10 pain, but still has a 6-7/10 pain when pivoting on her knee, but it only really hurts that badly in the instant, and fades quickly. Reports there has been no buckling or locking in her knee. Notes her legs fatigue fairly quickly, typically uses a cane if she is going to be up on her feet for longer periods of time. Prior Treatments and Tests R knee x-ray noted minimal findings, possible slight medial compartment joint space narrowing PT-OP-C Subjective Start: 04/02/22 10:17 Freq: Status: Active Protocol: Document 04/02/22 09:45 DCW (Rec: 04/02/22 10:28 DCW [id number]) OP-PT Subjective Patient Comments Patient Comments It improved enough after the injection last month that I wasn't really sure if I should still even come today, but it still does bother me when I pivot on it. Patient Reported Progress Improving PT-OP-F Manual Assessment Start: 04/02/22 10:17 Freq: Status: Active Protocol: Document 04/02/22 09:45 DCW (Rec: 04/02/22 15:46 DCW [id number]) Manual Assessments Joint Mobility Assessment Joint Mobility Assessment Mild-moderate tenderness to palpation along right lateral joint line, pain at end-range flexion PT-OP-K Range of Motion Start: 04/02/22 10:17 Freq: Status: Active Protocol: Document 04/02/22 09:45 DCW (Rec: 04/02/22 15:46 DCW [id number]) Knee Goniometric Range of Motion Knee Right Knee ROM WFL Yes Patient Position Supine Flexion Active (degrees) 135 Extension Active (degrees) 0 Comments Paain along lateral joint line at endrange PT-OP-L Special Tests Start: 04/02/22 10:17 Freq: Status: Active Protocol: Document 04/02/22 09:45 DCW (Rec: 04/02/22 15:46 DCW [id number]) Special Tests Knee Special Tests Varus- 25 Degrees Test Results Negative Valgus- 25 Degrees Test Results Negative Patellar Grind Test Test Results Negative Patella Tap Test Results Negative Gary Test Test Results Positive lateral right Jorgensen Chondromalacia Test Results Negative Alex's Test Results Negative Apley's Compression Test Results Positive lateral right Anterior Draw Test Results Negative PT-OP-M Strength Start: 04/02/22 10:17 Freq: Status: Active Protocol: Document 04/02/22 09:45 DCW (Rec: 04/02/22 15:46 DCW [id number]) Knee Strength Knee Manual Muscle Testing Right Flexion (S2) 5 Normal Extension (L3) 4 Good PT-OP-Q Treatments Start: 04/02/22 10:17 Freq: Status: Active Protocol: Document 04/02/22 09:45 DCW (Rec: 04/02/22 10:27 DCW [id number]) Therapeutic Exercises Supine Exercises Bridging Supine Exercise Name Bridging /c adductor ball squeeze Reps/Minutes x15 SLR Supine Exercise Name SLR in neutral, with ER Side right Reps/Minutes x15 each PT-OP-T Assessment and Plan Start: 04/02/22 10:17 Freq: Status: Active Protocol: Document 04/02/22 09:45 DCW (Rec: 04/02/22 15:57 DCW [id number]) Physical Therapy Assessment Rehab Potential Rehabilitation Potential Excellent Evaluation Complexity Number of Personal Factors/Comorbidities 1-2 Number of Body Systems Impaired 1-2 Clinical Presentation at Evaluation Stable Impairments Impairments Activity Tolerance,Functional Activities,Functional Mobility ,Pain,ROM Goals Two Impairment Positive Gary and Apley Compression special testing [employer] Manager Goal (LTG) Pt to exhibit improved functional mobility by testing negative with Apley Compression testing, showing improved ability to pivot on her right leg when out walking . LTG Duration 06/02/22 One Impairment Pt does not have an appropriate home exercise program Short Term Goal (STG) Pt to be independent and compliant with an approrpiate HEP STG Duration 05/02/22 Assessment Summary Assessment Pt presents with signs and symptoms consistent with right lateral labrial involvement, likely mild-moderate sprain. Pt has joint-line tenderness along lateral edge, as well as positive Apley compression and Gary testing, which are all suggestive of potential labral injury. Pt has some mild right quad and VMO weakness, and will likely benefit from skilled therapy focused on gentle strengthening to improve knee support. If pt does not show expected improvement over the next 2-3 weeks, may benefit from return to PCP for potential advanced imaging to rule out tears. Physical Therapy Plan Frequency and Duration Frequency of Treatment 1-2x/week Duration of Treatment Two months Plan of Care Start Date 04/02/22 Plan of Care End Date 06/02/22 Therapeutic Interventions Therapeutic Interventions Aquatic Therapy,Home Exercise Program,Joint Mobilizations, Manual Therapy,Neuromuscular Re-education,Patient/Caregiver Education,Self-Care/Home Management,Soft Tissue Mobilization,Therapeutic Activities,Therapeutic Exercises Modalities Cold Pack/Ice Massage,Electric Stimulation,Hot Packs, Ultrasound Next Visit Focus/Plan Next Note Type Treatment Note Next Visit Plan VMO/Quad strengthening
--- NOTE | 2022-04-02 15:58 | PT.OPPOC ---
Addendum entered and electronically signed by Kenny Espitia, PT 04/07/22 14:42: Please note, assessment section accidentally notes labral involvement. Should read menicsal involvement. Original Note: Physical, Occupational & Speech Therapy At [facility] Current Diagnoses Chondromalacia patellae, right knee (04/02/22) Other meniscus derangements, unspecified lateral meniscus, right knee (04/02/22) Unspecified internal derangement of right knee (04/02/22) Visit Care Team Role Provider Type Tony Napoles MD Family Provider Non-Staff Primary Care Provider Specialty: Medical Address: [address] [place] [address], [address] Email: Geno Charlton MD Attending Provider Physician Referring Provider Specialty: Orthopedics Orthopedic Surgery Address: [address] [place] [address], [address] Email: [email or web address] Plan Of Care PT-OP-T Assessment and Plan Start: 04/02/22 10:17 Freq: Status: Active Protocol: Document 04/02/22 09:45 DCW (Rec: 04/02/22 15:57 DCW [id number]) Physical Therapy Assessment Rehab Potential Rehabilitation Potential Excellent Evaluation Complexity Number of Personal Factors/Comorbidities 1-2 Number of Body Systems Impaired 1-2 Clinical Presentation at Evaluation Stable Impairments Impairments Activity Tolerance,Functional Activities,Functional Mobility ,Pain,ROM Goals Two Impairment Positive Gary and Apley Compression special testing Bond Manager Goal (LTG) Pt to exhibit improved functional mobility by testing negative with Apley Compression testing, showing improved ability to pivot on her right leg when out walking . LTG Duration 06/02/22 One Impairment Pt does not have an appropriate home exercise program Short Term Goal (STG) Pt to be independent and compliant with an approrpiate HEP STG Duration 05/02/22 Assessment Summary Assessment Pt presents with signs and symptoms consistent with right lateral labral involvement, likely mild-moderate sprain. Pt has joint-line tenderness along lateral edge, as well as positive Apley compression and Gary testing, which are all suggestive of potential labral injury. Pt has some mild right quad and VMO weakness, and will likely benefit from skilled therapy focused on gentle strengthening to improve knee support. If pt does not show expected improvement over the next 2-3 weeks, may benefit from return to PCP for potential advanced imaging to rule out tears. Physical Therapy Plan Frequency and Duration Frequency of Treatment 1-2x/week Duration of Treatment Two months Plan of Care Start Date 04/02/22 Plan of Care End Date 06/02/22 Therapeutic Interventions Therapeutic Interventions Aquatic Therapy,Home Exercise Program,Joint Mobilizations, Manual Therapy,Neuromuscular Re-education,Patient/Caregiver Education,Self-Care/Home Management,Soft Tissue Mobilization,Therapeutic Activities,Therapeutic Exercises Modalities Cold Pack/Ice Massage,Electric Stimulation,Hot Packs, Ultrasound Next Visit Focus/Plan Next Note Type Treatment Note Next Visit Plan VMO/Quad strengthening Plan of Care Dates Plan of Care Start Date 04/02/22 Plan of Care End Date 06/02/22 Electronically Signed by: Kenny Espitia, PT 04/02/22 5032 If you are in agreement with this Plan of Care, please return a signed and dated copy. I have reviewed this Plan of Care and certify that the skilled therapy services above are required to meet the patient?s needs. Physician Signature Date Printed Name and Credentials Clinical Instructor Signature Printed Name and Credentials
--- NOTE | 2022-04-07 15:09 | PT.OTN ---
Current Diagnoses Chondromalacia patellae, right knee (04/07/22) Other meniscus derangements, unspecified lateral meniscus, right knee (04/07/22) Unspecified internal derangement of right knee (04/07/22) Physical Therapy Treatment Note PT-OP-A Visit Information Start: 04/02/22 10:17 Freq: Status: Active Protocol: Document 04/07/22 14:30 DCW (Rec: 04/07/22 15:08 DCW [id number]) Out-Patient Physical Therapy Visit Information Visit Information Visit Type Treatment Note Visit Start Time 14:30 Visit Stop Time 15:10 Total Visit Minutes 40 Visit Number 2 Number of INVENTORY MANAGER Visits 0 Evaluation Information Evaluation Date 04/02/22 PT-OP-B Current Condition Start: 04/02/22 10:17 Freq: Status: Active Protocol: Document 04/02/22 09:45 DCW (Rec: 04/02/22 10:27 DCW [id number]) Current Condition History of Current Condition Onset Date 1-2 months Current Complaints Right knee pain when pivoting during weight-bearing History of Current Condition Pt is a 66 year old female presenting with a 1-2 month history of right knee pain. Pt reports no instigating injury , it just slowly started bothering her more. Pt reports that it had been bothering her for a few weeks, and then one month ago she went to see her PCP, and got an injection, which helped tremendously. Pt feeling much better now, in general her knee occasionally has a 1/10 pain, but still has a 6-7/10 pain when pivoting on her knee, but it only really hurts that badly in the instant, and fades quickly. Reports there has been no buckling or locking in her knee. Notes her legs fatigue fairly quickly, typically uses a cane if she is going to be up on her feet for longer periods of time. Prior Treatments and Tests R knee x-ray noted minimal findings, possible slight medial compartment joint space narrowing PT-OP-C Subjective Start: 04/02/22 10:17 Freq: Status: Active Protocol: Document 04/07/22 14:30 DCW (Rec: 04/07/22 15:08 DCW [id number]) OP-PT Subjective Patient Comments Patient Comments Pt notes she has had a bit more pain after doing her exercises, but has still been performing her HEP regularly, and notes the pain isn't too bad. PT-OP-F Manual Assessment Start: 04/02/22 10:17 Freq: Status: Active Protocol: Document 04/02/22 09:45 DCW (Rec: 04/02/22 15:46 DCW [id number]) Manual Assessments Joint Mobility Assessment Joint Mobility Assessment Mild-moderate tenderness to palpation along right lateral joint line, pain at end-range flexion PT-OP-K Range of Motion Start: 04/02/22 10:17 Freq: Status: Active Protocol: Document 04/02/22 09:45 DCW (Rec: 04/02/22 15:46 DCW [id number]) Knee Goniometric Range of Motion Knee Right Knee ROM WFL Yes Patient Position Supine Flexion Active (degrees) 135 Extension Active (degrees) 0 Comments Paain along lateral joint line at endrange PT-OP-L Special Tests Start: 04/02/22 10:17 Freq: Status: Active Protocol: Document 04/02/22 09:45 DCW (Rec: 04/02/22 15:46 DCW [id number]) Special Tests Knee Special Tests Varus- 25 Degrees Test Results Negative Valgus- 25 Degrees Test Results Negative Patellar Grind Test Test Results Negative Patella Tap Test Results Negative Gary Test Test Results Positive lateral right Jorgensen Chondromalacia Test Results Negative Alex's Test Results Negative Apley's Compression Test Results Positive lateral right Anterior Draw Test Results Negative PT-OP-M Strength Start: 04/02/22 10:17 Freq: Status: Active Protocol: Document 04/02/22 09:45 DCW (Rec: 04/02/22 15:46 DCW [id number]) Knee Strength Knee Manual Muscle Testing Right Flexion (S2) 5 Normal Extension (L3) 4 Good PT-OP-Q Treatments Start: 04/02/22 10:17 Freq: Status: Active Protocol: Document 04/07/22 14:30 DCW (Rec: 04/07/22 15:08 DCW [id number]) Cardio Equipment Recumbent Bicycle Duration (Minutes) 5 Resistance 3 Seat Position 4 Other notes a dull ache in R lateral knee Therapeutic Exercises Sitting Exercises LAQ Sitting Exercise Name LAQ Side bilateral Resistance 4#->0# on R d/t pain Hamstring Curls Sitting Exercise Name HS Curls Side bilateral Resistance Lv 2 Standing Exercises step-ups Standing Exercise Name Step-ups Side bilateral Equipment Used 6 step Manual Therapy Treatment Taping R knee Body Location R-knee Treatment Focus Y-strip distal->proximal around patella Type of Tape Kinesio Tape PT-OP-R Modalities Start: 04/02/22 10:17 Freq: Status: Active Protocol: Document 04/07/22 14:30 DCW (Rec: 04/07/22 15:09 DCW [id number]) Electric Stimulation Electric Stimulation Interferential Current (IFC) Body Location R knee Duration (Minutes) 8 Patient Position Hooklying Comments Stopped d/t pt complaints of being too much. PT-OP-T Assessment and Plan Start: 04/02/22 10:17 Freq: Status: Active Protocol: Document 04/07/22 14:30 DCW (Rec: 04/07/22 15:08 DCW [id number]) Physical Therapy Assessment Impairments Impairments Activity Tolerance,Functional Activities,Functional Mobility ,Pain,ROM Goals Two Impairment Positive Gary and Apley Compression special testing Grinder Lap Goal (LTG) Pt to exhibit improved functional mobility by testing negative with Apley Compression testing, showing improved ability to pivot on her right leg when out walking . LTG Duration 06/02/22 One Impairment Pt does not have an appropriate home exercise program Short Term Goal (STG) Pt to be independent and compliant with an appropriate HEP STG Duration 05/02/22 Assessment Summary Assessment Pt tolerated treatment today fairly poorly, noted pain or discomfort in her right lateral knee joint line with most activities. After 30 minutes of treatment, admitted that she didn't think she could tolerate any more. Trial of e-stim to help some with pain control. Pt requested to stop 8 minutes in to stim, noted it was beginning to bother her. Physical Therapy Plan Frequency and Duration Frequency of Treatment 1-2x/week Duration of Treatment Two months Plan of Care Start Date 04/02/22 Plan of Care End Date 06/02/22 Therapeutic Interventions Therapeutic Interventions Aquatic Therapy,Home Exercise Program,Joint Mobilizations, Manual Therapy,Neuromuscular Re-education,Patient/Caregiver Education,Self-Care/Home Management,Soft Tissue Mobilization,Therapeutic Activities,Therapeutic Exercises Modalities Cold Pack/Ice Massage,Electric Stimulation,Hot Packs, Ultrasound Next Visit Focus/Plan Next Note Type Treatment Note Next Visit Plan VMO/Quad strengthening
--- NOTE | 2022-04-15 09:48 | PT.OTN ---
Current Diagnoses Chondromalacia patellae, right knee (04/15/22) Other meniscus derangements, unspecified lateral meniscus, right knee (04/15/22) Unspecified internal derangement of right knee (04/15/22) Physical Therapy Treatment Note PT-OP-A Visit Information Start: 04/02/22 10:17 Freq: Status: Active Protocol: Document 04/15/22 09:13 SP (Rec: 04/15/22 09:52 SP [id number]) Out-Patient Physical Therapy Visit Information Visit Information Visit Type Treatment Note Visit Note BENDING SHED WORKER 10 min late to get pt. Visit Start Time 09:10 Visit Stop Time 09:48 Total Visit Minutes 38 Visit Number 3 Number of BENDING SHED WORKER Visits 1 Evaluation Information Evaluation Date 04/02/22 PT-OP-B Current Condition Start: 04/02/22 10:17 Freq: Status: Active Protocol: Document 04/02/22 09:45 DCW (Rec: 04/02/22 10:27 DCW [id number]) Current Condition History of Current Condition Onset Date 1-2 months Current Complaints Right knee pain when pivoting during weight-bearing History of Current Condition Pt is a 66 year old female presenting with a 1-2 month history of right knee pain. Pt reports no instigating injury , it just slowly started bothering her more. Pt reports that it had been bothering her for a few weeks, and then one month ago she went to see her PCP, and got an injection, which helped tremendously. Pt feeling much better now, in general her knee occasionally has a 1/10 pain, but still has a 6-7/10 pain when pivoting on her knee, but it only really hurts that badly in the instant, and fades quickly. Reports there has been no buckling or locking in her knee. Notes her legs fatigue fairly quickly, typically uses a cane if she is going to be up on her feet for longer periods of time. Prior Treatments and Tests R knee x-ray noted minimal findings, possible slight medial compartment joint space narrowing PT-OP-C Subjective Start: 04/02/22 10:17 Freq: Status: Active Protocol: Document 04/15/22 09:13 SP (Rec: 04/15/22 09:52 SP [id number]) OP-PT Subjective Patient Comments Patient Comments Pt stated didn't have alot pain this week, did trip over opened senior linux unix administrator when carrying airfryer across kitchen to put away and had some pain but since went away. PT-OP-F Manual Assessment Start: 04/02/22 10:17 Freq: Status: Active Protocol: Document 04/02/22 09:45 DCW (Rec: 04/02/22 15:46 DCW [id number]) Manual Assessments Joint Mobility Assessment Joint Mobility Assessment Mild-moderate tenderness to palpation along right lateral joint line, pain at end-range flexion PT-OP-K Range of Motion Start: 04/02/22 10:17 Freq: Status: Active Protocol: Document 04/02/22 09:45 DCW (Rec: 04/02/22 15:46 DCW [id number]) Knee Goniometric Range of Motion Knee Right Knee ROM WFL Yes Patient Position Supine Flexion Active (degrees) 135 Extension Active (degrees) 0 Comments Paain along lateral joint line at endrange PT-OP-L Special Tests Start: 04/02/22 10:17 Freq: Status: Active Protocol: Document 04/02/22 09:45 DCW (Rec: 04/02/22 15:46 DCW [id number]) Special Tests Knee Special Tests Varus- 25 Degrees Test Results Negative Valgus- 25 Degrees Test Results Negative Patellar Grind Test Test Results Negative Patella Tap Test Results Negative Gary Test Test Results Positive lateral right Jogrensen Chondromalacia Test Results Negative Alex's Test Results Negative Apley's Compression Test Results Positive lateral right Anterior Draw Test Results Negative PT-OP-M Strength Start: 04/02/22 10:17 Freq: Status: Active Protocol: Document 04/02/22 09:45 DCW (Rec: 04/02/22 15:46 DCW [id number]) Knee Strength Knee Manual Muscle Testing Right Flexion (S2) 5 Normal Extension (L3) 4 Good PT-OP-Q Treatments Start: 04/02/22 10:17 Freq: Status: Active Protocol: Document 04/15/22 09:13 SP (Rec: 04/15/22 09:52 SP [id number]) Therapeutic Exercises Supine Exercises Bridging Supine Exercise Name Bridging /c adductor ball squeeze Reps/Minutes x10 Comments cued feet closer together SLR Supine Exercise Name SLR in neutral, with ER Side right Reps/Minutes x10 Comments cued no higher than opp knee Sitting Exercises hamstring stretch Sitting Exercise Name added to HEP Side right Reps/Minutes 20s x3 Comments cued relaxed ankle, hip hinge forward LAQ Sitting Exercise Name LAQ- HEP Side bilateral Resistance 0#> #2leg wt (little quad quiver challenge, tires quick, no pain) Reps/Minutes 2s hold x5 reps w/ 2#, 3 s hold x5 reps AROM Comments cued sit all way back on chair for femur support Hamstring Curls Sitting Exercise Name HS Curls- HEP Side bilateral Resistance Lv 2 Reps/Minutes 2x10 Comments cued sit allway back on chair, femur supported inhibit quad recruitment Standing Exercises calf stretch Standing Exercise Name lunge position- HEP review Side right Reps/Minutes 20s x3 Comments cued ease into stretch range, hold not over pressure strain step-ups Standing Exercise Name Step-ups- single repeated- HEP reviewed Side bilateral Resistance contact rail Equipment Used 6 step Reps/Minutes x10 Comments cued knee alignment with/ behind toes PT-OP-R Modalities Start: 04/02/22 10:17 Freq: Status: Active Protocol: Document 04/07/22 14:30 DCW (Rec: 04/07/22 15:09 DCW [id number]) Electric Stimulation Electric Stimulation Interferential Current (IFC) Body Location R knee Duration (Minutes) 8 Patient Position Hooklying Comments Stopped d/t pt complaints of being too much. PT-OP-T Assessment and Plan Start: 04/02/22 10:17 Freq: Status: Active Protocol: Document 04/15/22 09:13 SP (Rec: 04/15/22 09:52 SP [id number]) Physical Therapy Assessment Goals Two Impairment Positive Gary and Apley Compression special testing Rehabilitation Assistant Goal (LTG) Pt to exhibit improved functional mobility by testing negative with Apley Compression testing, showing improved ability to pivot on her right leg when out walking . LTG Duration 06/02/22 One Impairment Pt does not have an appropriate home exercise program Short Term Goal (STG) Pt to be independent and compliant with an approrpiate HEP STG Duration 05/02/22 Assessment Summary Assessment Pt reports utilizes CP modality at home for sore recovery, declined end tx needed to go. Good understanding allowable ROM/ hold, alignment R knee and improvement mainly muscle tiring soreness today no pain. GOod feedback stretching added this tx for decrease tension on R knee. Discussed importance of rest breaks between sets for tiring recovery, modify length holds needed for proper form. Physical Therapy Plan Frequency and Duration Frequency of Treatment 1-2x/week Duration of Treatment Two months Plan of Care Start Date 04/02/22 Plan of Care End Date 06/02/22 Therapeutic Interventions Therapeutic Interventions Aquatic Therapy,Home Exercise Program,Joint Mobilizations, Manual Therapy,Neuromuscular Re-education,Patient/Caregiver Education,Self-Care/Home Management,Soft Tissue Mobilization,Therapeutic Activities,Therapeutic Exercises Modalities Cold Pack/Ice Massage,Electric Stimulation,Hot Packs, Ultrasound Next Visit Focus/Plan Next Note Type Treatment Note Next Visit Plan REview HEP. POC: VMO/Quad strengthening
--- NOTE | 2022-04-27 09:47 | PT.OTN ---
Current Diagnoses Chondromalacia patellae, right knee (04/27/22) Other meniscus derangements, unspecified lateral meniscus, right knee (04/27/22) Unspecified internal derangement of right knee (04/27/22) Physical Therapy Treatment Note PT-OP-A Visit Information Start: 04/02/22 10:17 Freq: Status: Active Protocol: Document 04/27/22 09:07 NBM (Rec: 04/27/22 09:47 NBM [id number]) Out-Patient Physical Therapy Visit Information Visit Information Visit Type Treatment Note Visit Start Time 09:05 Visit Stop Time 09:30 Total Visit Minutes 25 Visit Number 4 Number of WELDER GUN Visits 2 PT-OP-B Current Condition Start: 04/02/22 10:17 Freq: Status: Active Protocol: Document 04/02/22 09:45 DCW (Rec: 04/02/22 10:27 DCW [id number]) Current Condition History of Current Condition Onset Date 1-2 months Current Complaints Right knee pain when pivoting during weight-bearing History of Current Condition Pt is a 66 year old female presenting with a 1-2 month history of right knee pain. Pt reports no instigating injury , it just slowly started bothering her more. Pt reports that it had been bothering her for a few weeks, and then one month ago she went to see her PCP, and got an injection, which helped tremendously. Pt feeling much better now, in general her knee occasionally has a 1/10 pain, but still has a 6-7/10 pain when pivoting on her knee, but it only really hurts that badly in the instant, and fades quickly. Reports there has been no buckling or locking in her knee. Notes her legs fatigue fairly quickly, typically uses a cane if she is going to be up on her feet for longer periods of time. Prior Treatments and Tests R knee x-ray noted minimal findings, possible slight medial compartment joint space narrowing PT-OP-C Subjective Start: 04/02/22 10:17 Freq: Status: Active Protocol: Document 04/27/22 09:07 NBM (Rec: 04/27/22 09:47 NBM [id number]) OP-PT Subjective Patient Comments Patient Comments Pt reports she was sore for three days after last visit and used her cane during that time - she thinks we overdid it. Ice helped and she feels better today. She has been trying to walk more. PT-OP-F Manual Assessment Start: 04/02/22 10:17 Freq: Status: Active Protocol: Document 04/02/22 09:45 DCW (Rec: 04/02/22 15:46 DCW [id number]) Manual Assessments Joint Mobility Assessment Joint Mobility Assessment Mild-moderate tenderness to palpation along right lateral joint line, pain at end-range flexion PT-OP-K Range of Motion Start: 04/02/22 10:17 Freq: Status: Active Protocol: Document 04/02/22 09:45 DCW (Rec: 04/02/22 15:46 DCW [id number]) Knee Goniometric Range of Motion Knee Right Knee ROM WFL Yes Patient Position Supine Flexion Active (degrees) 135 Extension Active (degrees) 0 Comments Paain along lateral joint line at endrange PT-OP-L Special Tests Start: 04/02/22 10:17 Freq: Status: Active Protocol: Document 04/02/22 09:45 DCW (Rec: 04/02/22 15:46 DCW [id number]) Special Tests Knee Special Tests Varus- 25 Degrees Test Results Negative Valgus- 25 Degrees Test Results Negative Patellar Grind Test Test Results Negative Patella Tap Test Results Negative Gary Test Test Results Positive lateral right Jorgensen Chondromalacia Test Results Negative Alex's Test Results Negative Apley's Compression Test Results Positive lateral right Anterior Draw Test Results Negative PT-OP-M Strength Start: 04/02/22 10:17 Freq: Status: Active Protocol: Document 04/02/22 09:45 DCW (Rec: 04/02/22 15:46 DCW [id number]) Knee Strength Knee Manual Muscle Testing Right Flexion (S2) 5 Normal Extension (L3) 4 Good PT-OP-Q Treatments Start: 04/02/22 10:17 Freq: Status: Active Protocol: Document 04/27/22 09:07 NBM (Rec: 04/27/22 09:47 NBM [id number]) Cardio Equipment Recumbent Bicycle Duration (Minutes) 5 Resistance 3 Seat Position 4 Other Pt notes ache in lateral aspect of R knee - cues for knee/ankle alignment Therapeutic Exercises Supine Exercises SAQ Supine Exercise Name short arc quad Side right Equipment Used hooklying w/ bolster support Reps/Minutes 5 x 3 second hold Comments Pt able to tolerate Sitting Exercises LAQ Sitting Exercise Name LAQ Comments attempted w/o weight - dc'd d/ t c/o R knee pain Standing Exercises calf stretch Standing Exercise Name lunge position- HEP review Side right Reps/Minutes 20s x3 Comments cued ease into stretch range, hold not over pressure strain step-ups Standing Exercise Name Step-ups- single repeated Side bilateral Resistance contact rail Equipment Used 6 step Reps/Minutes x10 Comments cued knee behind toes - 5th rep pt's knee went beyond toes w/ acute pain. Manual Therapy Treatment Soft Tissue Mobilization R knee Body Location R VMO, rosa elena-patellar region Mobilization Type Rolling,Strumming Intensity/Depth Superficial Body Position Hooklying Comments Pt demonstrates pinpoint pain on medio-superior and latero- inferior aspects of R patella. PT-OP-R Modalities Start: 04/02/22 10:17 Freq: Status: Active Protocol: Document 04/07/22 14:30 DCW (Rec: 04/07/22 15:09 DCW [id number]) Electric Stimulation Electric Stimulation Interferential Current (IFC) Body Location R knee Duration (Minutes) 8 Patient Position Hooklying Comments Stopped d/t pt complaints of being too much. PT-OP-T Assessment and Plan Start: 04/02/22 10:17 Freq: Status: Active Protocol: Document 04/27/22 09:07 NBM (Rec: 04/27/22 09:47 NBM [id number]) Physical Therapy Assessment Goals Two Impairment Positive Gary and Apley Compression special testing Intermediate Goal (LTG) Pt to exhibit improved functional mobility by testing negative with Apley Compression testing, showing improved ability to pivot on her right leg when out walking . LTG Duration 06/02/22 One Impairment Pt does not have an appropriate home exercise program Short Term Goal (STG) Pt to be independent and compliant with an approrpiate HEP STG Duration 05/02/22 Assessment Summary Assessment Nora was cued when performing step-ups on 6 step to keep her R knee behind her toes. On the 5th repetition her R knee came past her toes and she experienced acute R peripatellar knee pain. She tolerated 3-4 more repetitions with correct form before discontinuing the exercise due to R knee pain. R knee pain persists throughout remainder of treatment session, and pt has pinpoint pain on medio- superior and latero-inferior aspects of R patella. Pt requests to end treatment session early due to R knee pain and will ice and rest at home. Pt encouraged to advise PCP of inability to tolerate PT today due to R knee pain and to request further imaging . Physical Therapy Plan Next Visit Focus/Plan Next Note Type Treatment Note Next Visit Plan F/U w/ pt regarding response to last treatment/acute knee pain and imaging. POC: REview HEP. POC: VMO/Quad strengthening
--- NOTE | 2022-06-09 16:58 | PT.OPDS ---
Current Diagnoses Chondromalacia patellae, right knee (04/27/22) Other meniscus derangements, unspecified lateral meniscus, right knee (04/27/22) Unspecified internal derangement of right knee (04/27/22) Visit Care Team Role Provider Type Tony Napoles MD Family Provider Non-Staff Primary Care Provider Specialty: Medical Address: [address] [place] [address], [id number] Email: Geno Charlton MD Attending Provider Physician Referring Provider Specialty: Orthopedics Orthopedic Surgery Address: [address] [place] [address], [id number] Email: [email or web address] Visit Number Visit Number 4 Discharge Summary PT-OP-B Current Condition Start: 04/02/22 10:17 Freq: Status: Active Protocol: Document 04/02/22 09:45 DCW (Rec: 04/02/22 10:27 DCW [id number]) Current Condition History of Current Condition Onset Date 1-2 months Current Complaints Right knee pain when pivoting during weight-bearing History of Current Condition Pt is a 66 year old female presenting with a 1-2 month history of right knee pain. Pt reports no instigating injury , it just slowly started bothering her more. Pt reports that it had been bothering her for a few weeks, and then one month ago she went to see her PCP, and got an injection, which helped tremendously. Pt feeling much better now, in general her knee occasionally has a 1/10 pain, but still has a 6-7/10 pain when pivoting on her knee, but it only really hurts that badly in the instant, and fades quickly. Reports there has been no buckling or locking in her knee. Notes her legs fatigue fairly quickly, typically uses a cane if she is going to be up on her feet for longer periods of time. Prior Treatments and Tests R knee x-ray noted minimal findings, possible slight medial compartment joint space narrowing PT-OP-C Subjective Start: 04/02/22 10:17 Freq: Status: Active Protocol: Document 04/27/22 09:07 NBM (Rec: 04/27/22 09:47 NBM [id number]) OP-PT Subjective Patient Comments Patient Comments Pt reports she was sore for three days after last visit and used her cane during that time - she thinks we overdid it. Ice helped and she feels better today. She has been trying to walk more. PT-OP-F Manual Assessment Start: 04/02/22 10:17 Freq: Status: Active Protocol: Document 04/02/22 09:45 DCW (Rec: 04/02/22 15:46 DCW [id number]) Manual Assessments Joint Mobility Assessment Joint Mobility Assessment Mild-moderate tenderness to palpation along right lateral joint line, pain at end-range flexion PT-OP-K Range of Motion Start: 04/02/22 10:17 Freq: Status: Active Protocol: Document 04/02/22 09:45 DCW (Rec: 04/02/22 15:46 DCW [id number]) Knee Goniometric Range of Motion Knee Right Knee ROM WFL Yes Patient Position Supine Flexion Active (degrees) 135 Extension Active (degrees) 0 Comments Paain along lateral joint line at endrange PT-OP-L Special Tests Start: 04/02/22 10:17 Freq: Status: Active Protocol: Document 04/02/22 09:45 DCW (Rec: 04/02/22 15:46 DCW [id number]) Special Tests Knee Special Tests Varus- 25 Degrees Test Results Negative Valgus- 25 Degrees Test Results Negative Patellar Grind Test Test Results Negative Patella Tap Test Results Negative Gary Test Test Results Positive lateral right Jorgensen Chondromalacia Test Results Negative Alex's Test Results Negative Apley's Compression Test Results Positive lateral right Anterior Draw Test Results Negative PT-OP-M Strength Start: 04/02/22 10:17 Freq: Status: Active Protocol: Document 04/02/22 09:45 DCW (Rec: 04/02/22 15:46 DCW [id number]) Knee Strength Knee Manual Muscle Testing Right Flexion (S2) 5 Normal Extension (L3) 4 Good PT-OP-T Assessment and Plan Start: 04/02/22 10:17 Freq: Status: Active Protocol: Document 06/09/22 16:57 DCW (Rec: 06/09/22 16:58 DCW [id number]) Physical Therapy Assessment Assessment Summary Assessment Pt canceled remaining appointments, reports her provider requested that she stop PT at this time. Physical Therapy Plan Discharge Physical Therapy Discharge Reasons No Longer Attending PT
== END 2022-06-11 10:57 | disposition home or self-care (01) ==
LOC: PHYS 09:00
PROVIDERS: Family Provider Family Medicine; PCP Family Medicine; Referring Provider Orthopaedic Surgery Foot and Ankle Surgery; Visit Provider Orthopaedic Surgery Foot and Ankle Surgery
DX: M22.41 Chondromalacia patellae, right knee (principal); M23.91 Unspecified internal derangement of right knee; M23.300 Other meniscus derangements, unspecified lateral meniscus, right knee
CPT/HCPCS: 97014; 97110; 97161; G0283

== ENCOUNTER → 2022-04-28 09:13 | Outpatient (CLI) | payer OTHER, SELFPAY ==
[2019-04-14 11:45] VITALS: BMI 22.3
[2022-04-28 11:06] LABS: Alanine Aminotransferase 43 IU/L (<35); Albumin 4.2 g/dL (3.5-5.0); Albumin Globulin Ratio 1.4 (1.0-2.8); Alkaline Phosphatase 87 U/L (38-126); Aspartate Aminotransferase 32 IU/L (14-36); BUN Creatinine Ratio 13.5 (6-22); Bilirubin Total 0.6 mg/dL (0.2-1.3); Blood Urea Nitrogen 7 mg/dL (7-17); Calcium 9.5 mg/dL (8.4-10.2); Carbon Dioxide 30 mmol/L (22-32); Chloride 101 mmol/L (98-107); Cholesterol 186 mg/dL (140-199); Estimated Glomerular Filt Rate > 60 mL/min (>60); Globulin 3.1 g/dL (1.7-4.1); Glucose 99 mg/dL (80-110); HDL Cholesterol 48 mg/dL (40-60); HEMOLYSIS < 15 (0-50); LDL Cholesterol Calculated 112 mg/dL (<100); Potassium 3.5 mmol/L (3.4-5.1); Sodium 140 mmol/L (137-145); Total Protein 7.3 g/dL (6.3-8.2); Triglycerides 131 mg/dL (35-150); VLDL Cholesterol Calculated 26 mg/dL (2-30)
== END ==
PROVIDERS: Family Provider Family Medicine; PCP Family Medicine; Referring Provider Family Medicine; Visit Provider Family Medicine
DX: I10 Essential (primary) hypertension (principal); E78.00 Pure hypercholesterolemia, unspecified
CPT/HCPCS: 36415; 80053; 80061

== ENCOUNTER → 2022-05-04 11:38 | Outpatient (CLI) | payer OTHER, SELFPAY ==
[2019-04-14 11:45] VITALS: BMI 22.3
--- NOTE | 2022-05-04 11:39 | DI.MRI.S_ITS ---
PROCEDURE: MR KNEE RT WO CON INDICATIONS: Chondromalacia patellae, right knee TECHNIQUE: Noncontrast sagittal PD fast spin echo and T2 fast spin echo with fat saturation, sagittal 3-D FLASH with fat saturation; coronal T1 spin echo and PD fast spin echo with fat saturation, and axial PD fast spin echo with fat saturation through the knee. COMPARISON: None. FINDINGS: Image quality: Excellent. Menisci: Subtle oblique tear involving posterior horn of medial meniscus is seen extending to inferior articulating surface. Peripheral displacement of medial meniscus bowing medial collateral ligament is seen. Lateral meniscus is intact. The meniscal root ligaments appear intact. Cruciate ligaments: Degenerative changes are noted in anterior cruciate ligament. No ACL rupture. PCL is intact. Medial structures: Low-grade proximal MCL sprain at its femoral insertion is noted. The posterior oblique ligament, semimembranosus tendon insertions, oblique popliteal ligament, and meniscocapsular junction appear intact. Visualized portions of the pes anserinus tendons appear normal. No abnormal bursal fluid. Lateral structures: The lateral collateral ligament, long and short heads of the biceps femoris tendon appear intact. The popliteus tendon appears normal; the popliteofibular ligament appears intact. Iliotibial band appears normal. Anterior structures: Distal quadriceps tendinosis at its superior patellar insertion is seen. Patellar tendon is intact. Patella alignment is normal. No femoral trochlear dysplasia or ventral trochlear prominence. No edema in the infrapatellar fat pad. Bones and cartilage: No bone marrow contusions or fractures. Mild tricompartmental osteoarthritis and low-grade chondromalacia is noted. Joint space: There is small knee joint fluid. No Estrada's cyst. Normal appearing synovial plicae are incidentally noted. IMPRESSION: 1. Subtle oblique tear involving posterior horn of medial meniscus extending to inferior articulating surface. No focal lateral meniscal tear. 2. Degenerative changes in ACL. No ACL rupture. PCL is intact. 3. Low-grade proximal MCL sprain. 4. Distal quadriceps tendinosis. 5. Mild tricompartmental osteoarthritis and low-grade chondromalacia. No fracture or dislocation. Dictated by: Wilder Lao M.D. on 05/04/2022 at 13:51 Approved by: Wilder Lao M.D. on 05/04/2022 at 13:53
== END ==
PROVIDERS: Family Provider Family Medicine; PCP Family Medicine; Referring Provider Orthopaedic Surgery Foot and Ankle Surgery; Visit Provider Orthopaedic Surgery Foot and Ankle Surgery
DX: S83.241A Other tear of medial meniscus, current injury, right knee, initial encounter (principal); S83.411A Sprain of medial collateral ligament of right knee, initial encounter; M22.41 Chondromalacia patellae, right knee; M17.11 Unilateral primary osteoarthritis, right knee
CPT/HCPCS: 73721

== ENCOUNTER → 2022-05-12 14:41 | Outpatient (CLI) | payer OTHER, SELFPAY ==
[2019-04-14 11:45] VITALS: BMI 22.3
[2022-05-12 16:35] LABS: Vitamin B12 726 pg/mL (239-931)
== END ==
PROVIDERS: Family Provider Family Medicine; PCP Family Medicine; Referring Provider Family Medicine; Visit Provider Family Medicine
DX: R29.898 Other symptoms and signs involving the musculoskeletal system (principal)
CPT/HCPCS: 36415; 82607

== ENCOUNTER → 2022-06-09 07:22 | Outpatient (CLI) | payer OTHER, SELFPAY ==
[2019-04-14 11:45] VITALS: BMI 22.3
--- NOTE | 2022-06-09 | DI.MG.S_ITS ---
BILATERAL DIGITAL SCREENING MAMMOGRAM 3D/2D WITH CAD: 06/09/2022 CLINICAL: Routine screening. Family history of breast cancer. Comparison is made to exams dated: 04/29/2021 mammogram and 08/23/2019 mammogram - [facility]. Both breasts are almost entirely fatty (category a/<25% glandular tissue). Current study was also evaluated with a Computer Aided Detection (CAD) system. No significant masses, calcifications, or other findings are seen in either breast. There has been no significant interval change. IMPRESSION: NEGATIVE There is no mammographic evidence of malignancy. A 1 year screening mammogram is recommended. Based on the Tyrer Cuzick model (a risk assessment model) the patient's lifetime risk is 1.3% and her 10 year risk is 0.7%. According to the ACR, ACS, and NCCN guidelines, an annual breast MRI exam along with mammogram is recommended if the patient's lifetime risk is 20% or greater. This exam was interpreted at Station ID: [id number]. NOTE: For mammograms, a report in lay terms will be sent to the patient. Approximately 15% of breast malignancies will not be visualized mammographically. In the management of a palpable breast mass, a negative mammogram must not discourage biopsy of a clinically suspicious lesion. Electronically Signed By: Mathieu christina/jesse:06/09/2022 12:56:51 letter sent: Normal Exam ACR BI-RADS Category 1: Negative [id number]
== END ==
PROVIDERS: Family Provider Family Medicine; PCP Family Medicine; Referring Provider Family Medicine; Visit Provider Family Medicine
DX: Z12.31 Encounter for screening mammogram for malignant neoplasm of breast (principal); Z80.3 Family history of malignant neoplasm of breast
CPT/HCPCS: 77063; 77067

== ENCOUNTER → 2022-09-30 07:16 | Outpatient (CLI) | payer OTHER, SELFPAY ==
[2019-04-14 11:45] VITALS: BMI 22.3
--- NOTE | 2022-09-30 | DI.MRI.S_ITS ---
PROCEDURE: MR LUMBAR SPINE WO CON INDICATIONS: NEUROGENIC CLAUDICATION TECHNIQUE: Noncontrast sagittal T1 spin echo and T2 fast echo, sagittal STIR, and T2 fast spin echo through the lumbar spine. In cases with scoliosis, additional coronal T2 fast spin echo may be performed. COMPARISON: [facility], CR, XR LUMBAR SPINE WITH FLEXION EXTENSION 5 VIEWS, 09/21/2022, 10:20. [facility] Outside Film, MR, MR LUMBAR SPINE WITHOUT CONTRAST, 01/02/2019, 14:15. FINDINGS: Image quality: This examination is limited by involuntary motion artifact. There is artifact associated with the metallic hardware. Alignment and Curvature: There is normal bony alignment. Bone Marrow: Marrow is of normal overall signal. No acute vertebral body compression fractures. Spinal Cord: Conus medullaris terminates at the L1 level. Visualized cord demonstrates normal signal and size. Paraspinous Soft Tissues: No paravertebral masses. T12-L1: Normal appearance. L1-L2: Moderate loss of disc height is seen. Loss of disc signal is seen. Reactive marrow endplate changes are seen, which demonstrate mixed T1 weighted and T2-weighted signal, and are attributed to a combination of edema and fatty metaplasia (Modic type I and Modic type II changes). Moderate disc bulge is seen, with a central/right disc protrusion. Mild facet joint hypertrophy is seen. There is moderate right-sided and no left-sided neural foraminal narrowing. Moderate central canal narrowing is seen. These imaging findings have progressed compared to the prior study. L2-L3: Moderate loss of disc height is seen. Loss of disc signal is seen. Reactive marrow endplate changes are seen, which are hyperintense on T1-weighted and T2-weighted imaging and most consistent with fatty metaplasia (Modic type II changes). Moderate generalized disc bulge is seen. There is a superimposed central disc protrusion. Mild to moderate facet hypertrophy is seen. There is moderate right-sided and [id number] left-sided neural foraminal narrowing. Moderate central canal narrowing is seen. When comparison is made with the prior images, these findings are similar. L3-L4: The disc height is well-preserved. Loss of disc signal is seen at this level. Moderate disc bulge is seen, which is eccentric to the right. There is a disc protrusion seen involving the right neural foramen. Mild facet joint hypertrophy is seen. There is moderate right-sided and minimal left-sided neural foraminal narrowing. Moderate central canal narrowing is seen. These degenerative changes are mildly progressed compared to 2019. L4-L5: The disc height is well-preserved. Loss of disc signal is seen at this level. Moderate generalized disc bulge is seen. There is a superimposed central disc protrusion. At least moderate right-sided and moderate left-sided facet hypertrophy can be seen. There is at least moderate bilateral neural foraminal narrowing seen. There is a mild degree of compression seen upon exiting left L4 nerve root. Moderate central canal narrowing is seen. These imaging findings have progressed compared to the prior study. L5-S1: Postoperative changes are seen at this level, with bilateral pedicle screws and a disc spacer. Moderate generalized disc bulge is seen. Mild to moderate facet hypertrophy is seen. There is [id number] left-sided and moderate right-sided neural foraminal narrowing. No significant central canal narrowing is seen. This level is improved compared to 2019. IMPRESSION: Interval placement of postoperative hardware at the L5-S1 level, with improvement in the degrees of degenerative narrowing compared to prior. Multiple levels of degenerative change are seen elsewhere, which are overall progressed compared to 2019. Dictated by: Wilfredo Preciado M.D. on 09/30/2022 at 16:15 Approved by: Wilfredo Preciado M.D. on 09/30/2022 at 16:21
== END ==
PROVIDERS: Family Provider Family Medicine; PCP Family Medicine; Referring Provider Orthopaedic Surgery; Visit Provider Orthopaedic Surgery
DX: M48.062 Spinal stenosis, lumbar region with neurogenic claudication; M47.816 Spondylosis without myelopathy or radiculopathy, lumbar region; M47.817 Spondylosis without myelopathy or radiculopathy, lumbosacral region; Z98.1 Arthrodesis status
CPT/HCPCS: 72148

== ENCOUNTER 2022-11-25 11:34 | Emergency (ER) | payer OTHER, SELFPAY ==
[2019-04-14 11:45] VITALS: BMI 22.3
[2022-11-25] VITALS (29 sets, daily range): BP systolic 118–179; BP diastolic 62–95; PULSE 71–99; RESP 25–35; TEMP 36.4; O2SAT 93–100; BMI 24.1
--- NOTE | 2022-11-25 11:42 | ED.GENADULT ---
HPI - General Adult General Chief complaint: GI Bleed Stated complaint: Syncope/GI Bleed Time Seen by Provider: 11/25/22 11:42 History of Present Illness HPI narrative: 67-year-old female daily smoker with a history of hypertension, hyperlipidemia and prior GI bleeds presents by EMS for evaluation bright red lower GI bleeding that has been present for about 1 month and there is some concern about the potential of a syncopal episode earlier today. She denies any headache or blurred vision. She has no chest pain or shortness of breath. She denies current abdominal pain but has had episodes of abdominal cramping that seems to resolve with a bowel movement. She also complains of back pain that might be worse today than normal. She is had no fever or chills and does not take blood thinners. Her pain is in the midline of her low back and has been present for quite some time, she is even seen orthopedics for evaluation. She denies any radiation of the pain down her legs. She has no numbness, tingling or weakness. She denies any loss of control of bowel or bladder. She denies any footdrop Related Data Home Medications Medication Instructions Recorded Confirmed fluoxetine 20 mg tablet 20 mg PO QDAY ##0 11/23/11 10/28/21 albuterol sulfate 90 mcg/actuation 2 puff inhalation Q6H PRN 04/12/19 10/28/21 aerosol inhaler (ProAir HFA) Shortness Of Breath lisinopril 40 mg tablet 40 mg PO DAILY 04/12/19 10/28/21 lorazepam 0.5 mg tablet 0.25 mg PO BID-TID PRN Anxiety 04/12/19 10/28/21 omeprazole 40 mg capsule,delayed 40 mg PO DAILY 04/12/19 04/14/19 release atorvastatin 20 mg tablet 20 mg PO DAILY 04/14/19 10/28/21 potassium chloride 10 mEq 10 meq PO BID 11/25/22 11/25/22 capsule,extended release Allergies Allergy/AdvReac Type Severity Reaction Status Date / Time Penicillins [PENICILLINS] Allergy Severe SWELLING, Verified 11/25/22 16:22 RASH, ANAPHYLAXIS Review of Systems Review of Systems Narrative: GENERAL: Denies chills, fatigue, malaise, fever, sweats. HEENT: Denies sinus pain, ear pain, sore throat, difficulty swallowing, dizziness. RESPIRATORY: Denies dyspnea, cough, wheezing, hemoptysis, sputum. CARDIOVASCULAR: See HPI GASTROINTESTINAL: See HPI : Denies dysuria, frequency, incontinence, hematuria, urinary retention. MUSCULOSKELETAL: See HPI SKIN: Denies rash, skin lesions, or other NEUROLOGIC: Denies weakness, headache, numbness, change in speech, confusion, seizures, incoordination. PSYCHIATRIC: No concerning psychosocial issues. 12 point review of systems is negative except for those stated above Patient History Medical History Anxiety Arthritis Colitis Depression GERD (gastroesophageal reflux disease) GI bleed (10/12/13) HLD (hyperlipidemia) HTN (hypertension) Surgical History H/O: hysterectomy History of colonoscopy Hx of cholecystectomy Hx of shoulder surgery S/P epidural steroid injection Social History household members: spouse Smoking Status: Current every day smoker alcohol intake: former Smoking Status: Current every day smoker Substance Use Type: does not use Exam Narrative Exam Narrative: GENERAL: [67] year old patient appears stated age. Well-developed patient, in mild distress. A bit anxious HEAD: Atraumatic. Normocephalic. EYES: No conjunctival pallor Pupils equal round and reactive. Extraocular motions intact. No scleral icterus. No injection or drainage. ENT: Nose without bleeding, purulent drainage. Throat without erythema, tonsillar hypertrophy or exudate. Airway patent. NECK: Trachea midline. Non tender CARDIOVASCULAR: Regular rate and rhythm without murmurs, gallops, or rubs. RESPIRATORY: Clear to auscultation. Breath sounds equal bilaterally. No wheezes, rales, or rhonchi. GASTROINTESTINAL: Abdomen soft, non-tender, nondistended. EXTREMITIES: No edema or joint tenderness. BACK: heating fixture tender but free of any obvious external abnormalities. Patient exam notes decreased range of motion and muscle spasm, but no CVA tenderness, or vertebral point tenderness. There are no symptoms of cauda equina such as saddle anesthesia, and decreased reflexes, decreased sensation or strength. NEURO: AOx3. SKIN: No rash or erythema of visible areas Initial Vital Signs Initial Vital Signs: Vital Signs Temperature 97.5 F L 11/25/22 11:34 Pulse Rate 86 11/25/22 11:34 Respiratory Rate 26 H 11/25/22 11:34 Blood Pressure 118/89 11/25/22 11:34 Pulse Oximetry 100 11/25/22 11:34 Oxygen Delivery Method Room Air 11/25/22 11:34 Course Orders Ordered: Discontinued Medications Sodium Chloride (Normal Saline 0.9%) 1,000 mls @ 1,000 mls/hr IV BOLUS ONE Stop: 11/25/22 14:05 Last Infusion: 11/25/22 14:44 Dose: 0 mls/hr Documented By: Admin: 11/25/22 13:00 Dose: 1,000 mls/hr Documented By: ELIE Ondansetron HCl (Ondansetron 4 Mg/2 Ml Inj) 4 mg IV NOW PRN PRN Reason: Nausea And Vomiting Last Admin: 11/25/22 12:04 Dose: 4 mg Documented By: AQUILES Ondansetron HCl (Ondansetron 4 Mg Odt) 4 mg SL NOW PRN PRN Reason: Nausea And Vomiting Pantoprazole Sodium (Pantoprazole 40 Mg Vial) 80 mg IV NOW ONE Stop: 11/25/22 11:36 Last Admin: 11/25/22 12:05 Dose: 80 mg Documented By: AQUILES Potassium Chloride (Potassium Chloride 20 Meq/15 Ml Udc) 40 meq PO NOW ONE Stop: 11/25/22 15:48 Last Admin: 11/25/22 15:55 Dose: 40 meq Documented By: ASHLEY Vital Signs Vital signs: Vital Signs - 8 hr 11/25/22 11:34 11/25/22 11:39 11/25/22 11:40 Temperature 97.5 F L Pulse Rate 86 94 H Pulse Rate [Orthostatic Lying] Pulse Rate [Orthostatic Sitting] Pulse Rate [Orthostatic Standing] Respiratory Rate 26 H Blood Pressure 118/89 118/89 Blood Pressure [Orthostatic Lying] Blood Pressure [Orthostatic Sitting] Blood Pressure [Orthostatic Standing] Pulse Oximetry 100 99 Oxygen Delivery Method Room Air 11/25/22 11:41 11/25/22 11:41 11/25/22 11:45 Temperature Pulse Rate 88 88 Pulse Rate [Orthostatic Lying] Pulse Rate [Orthostatic Sitting] Pulse Rate [Orthostatic Standing] Respiratory Rate Blood Pressure 132/95 H Blood Pressure [Orthostatic Lying] Blood Pressure [Orthostatic Sitting] Blood Pressure [Orthostatic Standing] Pulse Oximetry 99 99 Oxygen Delivery Method 11/25/22 12:01 11/25/22 12:15 11/25/22 12:19 Temperature Pulse Rate 77 81 Pulse Rate [Orthostatic Lying] Pulse Rate [Orthostatic Sitting] Pulse Rate [Orthostatic Standing] Respiratory Rate 29 H Blood Pressure 179/92 H Blood Pressure [Orthostatic Lying] Blood Pressure [Orthostatic Sitting] Blood Pressure [Orthostatic Standing] Pulse Oximetry 93 98 Oxygen Delivery Method 11/25/22 12:19 11/25/22 12:30 11/25/22 12:30 Temperature Pulse Rate 89 75 Pulse Rate [Orthostatic Lying] Pulse Rate [Orthostatic Sitting] Pulse Rate [Orthostatic Standing] Respiratory Rate 25 H 33 H Blood Pressure 169/87 H Blood Pressure [Orthostatic Lying] Blood Pressure [Orthostatic Sitting] Blood Pressure [Orthostatic Standing] Pulse Oximetry 98 97 Oxygen Delivery Method Room Air 11/25/22 12:45 11/25/22 13:00 11/25/22 13:00 Temperature Pulse Rate 71 72 Pulse Rate [Orthostatic Lying] Pulse Rate [Orthostatic Sitting] Pulse Rate [Orthostatic Standing] Respiratory Rate 30 H 32 H Blood Pressure 172/79 H Blood Pressure [Orthostatic Lying] Blood Pressure [Orthostatic Sitting] Blood Pressure [Orthostatic Standing] Pulse Oximetry 97 99 Oxygen Delivery Method 11/25/22 13:15 11/25/22 13:43 11/25/22 13:44 Temperature Pulse Rate 76 90 Pulse Rate [Orthostatic Lying] Pulse Rate [Orthostatic Sitting] Pulse Rate [Orthostatic Standing] Respiratory Rate 35 H Blood Pressure 148/65 H Blood Pressure [Orthostatic Lying] Blood Pressure [Orthostatic Sitting] Blood Pressure [Orthostatic Standing] Pulse Oximetry 99 98 Oxygen Delivery Method 11/25/22 13:44 11/25/22 13:45 11/25/22 14:00 Temperature Pulse Rate 87 86 87 Pulse Rate [Orthostatic Lying] Pulse Rate [Orthostatic Sitting] Pulse Rate [Orthostatic Standing] Respiratory Rate Blood Pressure Blood Pressure [Orthostatic Lying] Blood Pressure [Orthostatic Sitting] Blood Pressure [Orthostatic Standing] Pulse Oximetry 98 97 96 Oxygen Delivery Method 11/25/22 14:01 11/25/22 14:01 11/25/22 14:15 Temperature Pulse Rate 85 83 Pulse Rate [Orthostatic Lying] Pulse Rate [Orthostatic Sitting] Pulse Rate [Orthostatic Standing] Respiratory Rate Blood Pressure 133/62 Blood Pressure [Orthostatic Lying] Blood Pressure [Orthostatic Sitting] Blood Pressure [Orthostatic Standing] Pulse Oximetry 97 94 Oxygen Delivery Method 11/25/22 14:31 11/25/22 14:31 11/25/22 14:45 Temperature Pulse Rate 99 H 83 Pulse Rate [Orthostatic Lying] Pulse Rate [Orthostatic Sitting] Pulse Rate [Orthostatic Standing] Respiratory Rate Blood Pressure 126/63 Blood Pressure [Orthostatic Lying] Blood Pressure [Orthostatic Sitting] Blood Pressure [Orthostatic Standing] Pulse Oximetry 95 96 Oxygen Delivery Method 11/25/22 15:00 11/25/22 15:00 11/25/22 15:15 Temperature Pulse Rate 83 Pulse Rate [Orthostatic Lying] 88 Pulse Rate [Orthostatic Sitting] 89 Pulse Rate [Orthostatic Standing] 91 H Respiratory Rate Blood Pressure 137/66 Blood Pressure [Orthostatic Lying] 137/66 Blood Pressure [Orthostatic Sitting] 152/74 H Blood Pressure [Orthostatic Standing] 156/81 H Pulse Oximetry 96 Oxygen Delivery Method 11/25/22 15:10 11/25/22 15:10 11/25/22 15:11 Temperature Pulse Rate 90 Pulse Rate [Orthostatic Lying] Pulse Rate [Orthostatic Sitting] Pulse Rate [Orthostatic Standing] Respiratory Rate Blood Pressure 152/74 H 156/81 H Blood Pressure [Orthostatic Lying] Blood Pressure [Orthostatic Sitting] Blood Pressure [Orthostatic Standing] Pulse Oximetry 95 Oxygen Delivery Method 11/25/22 15:11 11/25/22 15:17 11/25/22 15:18 Temperature Pulse Rate 91 H Pulse Rate [Orthostatic Lying] Pulse Rate [Orthostatic Sitting] Pulse Rate [Orthostatic Standing] Respiratory Rate Blood Pressure 163/86 H Blood Pressure [Orthostatic Lying] Blood Pressure [Orthostatic Sitting] Blood Pressure [Orthostatic Standing] Pulse Oximetry 95 94 Oxygen Delivery Method 11/25/22 15:18 11/25/22 15:30 11/25/22 15:30 Temperature Pulse Rate 83 80 Pulse Rate [Orthostatic Lying] Pulse Rate [Orthostatic Sitting] Pulse Rate [Orthostatic Standing] Respiratory Rate Blood Pressure 152/69 H Blood Pressure [Orthostatic Lying] Blood Pressure [Orthostatic Sitting] Blood Pressure [Orthostatic Standing] Pulse Oximetry 95 95 Oxygen Delivery Method Room Air 11/25/22 15:45 11/25/22 16:00 11/25/22 16:00 Temperature Pulse Rate 85 84 Pulse Rate [Orthostatic Lying] Pulse Rate [Orthostatic Sitting] Pulse Rate [Orthostatic Standing] Respiratory Rate Blood Pressure 163/80 H Blood Pressure [Orthostatic Lying] Blood Pressure [Orthostatic Sitting] Blood Pressure [Orthostatic Standing] Pulse Oximetry 96 96 Oxygen Delivery Method Room Air Room Air Medical Decision Making Lab Data 11/25/22 15:01 11/25/22 15:01 Labs: Lab Results 11/25/22 11/25/22 11/25/22 Range/Units 11:43 11:43 11:43 WBC 6.9 (4.5-11.0) X10^3/uL RBC 4.42 (4.0-5.2) X10^6/uL Hgb 14.4 (12.0-16.0) g/dL Hct 41.0 (36-46) % MCV 92.6 (80-100) fL MCH 32.6 (26-34) PG MCHC 35.2 (30-36) % RDW 12.7 (11.6-14.8) % Plt Count 276 (150-400) X10^3/uL Neut % (Auto) 49.0 L (50-75) % Lymph % (Auto) 41.0 H (25-40) % [place] % (Auto) 7.5 (3-14) % Eos % (Auto) 1.7 L (2-4) % Baso % (Auto) 0.8 (0-2) % Neut # (Auto) 3400 (1560-5476) /uL Lymph # (Auto) 2800 (1745-5867) /uL [place] # (Auto) 500 (0-900) /uL Eos # (Auto) 100 (0-450) /uL Baso # (Auto) 100 (0-100) /uL PT 11.2 (10.1-12.7) SECONDS INR 1.0 (0.9-1.3) APTT 33 (26-36) SECONDS Sodium 136 L (137-145) mmol/L Potassium 3.6 (3.4-5.1) mmol/L Chloride 102 (98-107) mmol/L Carbon Dioxide 28 (22-32) mmol/L BUN 5 L (7-17) mg/dL Creatinine 0.46 L (0.52-1.04) mg/dL Estimated GFR > 60 (>60) mL/min BUN/Creatinine Ratio 10.9 (6-22) Glucose 95 (80-110) mg/dL Calcium 9.1 (8.4-10.2) mg/dL Total Bilirubin 0.6 (0.2-1.3) mg/dL AST 38 H (14-36) IU/L ALT 51 H (<35) IU/L Alkaline Phosphatase 87 (38-126) U/L Total Creatine Kinase (30-135) U/L CK-MB (CK-2) CK-MB (CK-2) Rel Index Troponin I (0.01-0.034) ng/mL Total Protein 7.0 (6.3-8.2) g/dL Albumin 4.3 (3.5-5.0) g/dL Globulin 2.7 (1.7-4.1) g/dL Albumin/Globulin Ratio 1.6 (1.0-2.8) Urine RBC (0-5/HPF) Urine WBC (0-5/HPF) Ur Squamous Epith Cells (0-5/HPF) Urine Bacteria (None) Ur Culture Indicated? SARS-CoV-2 (PCR) (Negative) Blood Type Antibody Screen 11/25/22 11/25/22 11/25/22 Range/Units 11:43 11:43 11:58 WBC (4.5-11.0) X10^3/uL RBC (4.0-5.2) X10^6/uL Hgb (12.0-16.0) g/dL Hct (36-46) % MCV (80-100) fL MCH (26-34) PG MCHC (30-36) % RDW (11.6-14.8) % Plt Count (150-400) X10^3/uL Neut % (Auto) (50-75) % Lymph % (Auto) (25-40) % [place] % (Auto) (3-14) % Eos % (Auto) (2-4) % Baso % (Auto) (0-2) % Neut # (Auto) (0140-6663) /uL Lymph # (Auto) (6164-5267) /uL [place] # (Auto) (0-900) /uL Eos # (Auto) (0-450) /uL Baso # (Auto) (0-100) /uL PT (10.1-12.7) SECONDS INR (0.9-1.3) APTT (26-36) SECONDS Sodium (137-145) mmol/L Potassium (3.4-5.1) mmol/L Chloride (98-107) mmol/L Carbon Dioxide (22-32) mmol/L BUN (7-17) mg/dL Creatinine (0.52-1.04) mg/dL Estimated GFR (>60) mL/min BUN/Creatinine Ratio (6-22) Glucose (80-110) mg/dL Calcium (8.4-10.2) mg/dL Total Bilirubin (0.2-1.3) mg/dL AST (14-36) IU/L ALT (<35) IU/L Alkaline Phosphatase (38-126) U/L Total Creatine Kinase 91 (30-135) U/L CK-MB (CK-2) TNP CK-MB (CK-2) Rel Index TNP Troponin I < 0.012 (0.01-0.034) ng/mL Total Protein (6.3-8.2) g/dL Albumin (3.5-5.0) g/dL Globulin (1.7-4.1) g/dL Albumin/Globulin Ratio (1.0-2.8) Urine RBC None seen (0-5/HPF) Urine WBC 1-5/hpf (0-5/HPF) Ur Squamous Epith Cells (0-5/HPF) Urine Bacteria Moderate (10-30) H (None) Ur Culture Indicated? SARS-CoV-2 (PCR) (Negative) Blood Type O Positive Antibody Screen Negative 11/25/22 11/25/22 11/25/22 Range/Units 12:20 15:01 15:01 WBC 7.8 (4.5-11.0) X10^3/uL RBC 4.09 (4.0-5.2) X10^6/uL Hgb 13.6 (12.0-16.0) g/dL Hct 37.8 (36-46) % MCV 92.4 (80-100) fL MCH 33.2 (26-34) PG MCHC 36.0 (30-36) % RDW 12.6 (11.6-14.8) % Plt Count 252 (150-400) X10^3/uL Neut % (Auto) 55.0 (50-75) % Lymph % (Auto) 35.2 (25-40) % [place] % (Auto) 7.3 (3-14) % Eos % (Auto) 1.4 L (2-4) % Baso % (Auto) 1.1 (0-2) % Neut # (Auto) 4300 (4283-6823) /uL Lymph # (Auto) 2800 (8899-9651) /uL [place] # (Auto) 600 (0-900) /uL Eos # (Auto) 100 (0-450) /uL Baso # (Auto) 100 (0-100) /uL PT (10.1-12.7) SECONDS INR (0.9-1.3) APTT (26-36) SECONDS Sodium 138 (137-145) mmol/L Potassium 3.0 L (3.4-5.1) mmol/L Chloride 108 H (98-107) mmol/L Carbon Dioxide 24 (22-32) mmol/L BUN 4 L (7-17) mg/dL Creatinine 0.41 L (0.52-1.04) mg/dL Estimated GFR > 60 (>60) mL/min BUN/Creatinine Ratio 9.8 (6-22) Glucose 97 (80-110) mg/dL Calcium 8.4 (8.4-10.2) mg/dL Total Bilirubin 0.6 (0.2-1.3) mg/dL AST 36 (14-36) IU/L ALT 45 H (<35) IU/L Alkaline Phosphatase 77 (38-126) U/L Total Creatine Kinase (30-135) U/L CK-MB (CK-2) CK-MB (CK-2) Rel Index Troponin I (0.01-0.034) ng/mL Total Protein 6.2 L (6.3-8.2) g/dL Albumin 3.6 (3.5-5.0) g/dL Globulin 2.6 (1.7-4.1) g/dL Albumin/Globulin Ratio 1.4 (1.0-2.8) Urine RBC (0-5/HPF) Urine WBC (0-5/HPF) Ur Squamous Epith Cells (0-5/HPF) Urine Bacteria (None) Ur Culture Indicated? SARS-CoV-2 (PCR) Negative (Negative) Blood Type Antibody Screen 11/25/22 Range/Units 15:18 WBC (4.5-11.0) X10^3/uL RBC (4.0-5.2) X10^6/uL Hgb (12.0-16.0) g/dL Hct (36-46) % MCV (80-100) fL MCH (26-34) PG MCHC (30-36) % RDW (11.6-14.8) % Plt Count (150-400) X10^3/uL Neut % (Auto) (50-75) % Lymph % (Auto) (25-40) % [place] % (Auto) (3-14) % Eos % (Auto) (2-4) % Baso % (Auto) (0-2) % Neut # (Auto) (2553-6679) /uL Lymph # (Auto) (7177-0645) /uL [place] # (Auto) (0-900) /uL Eos # (Auto) (0-450) /uL Baso # (Auto) (0-100) /uL PT (10.1-12.7) SECONDS INR (0.9-1.3) APTT (26-36) SECONDS Sodium (137-145) mmol/L Potassium (3.4-5.1) mmol/L Chloride (98-107) mmol/L Carbon Dioxide (22-32) mmol/L BUN (7-17) mg/dL Creatinine (0.52-1.04) mg/dL Estimated GFR (>60) mL/min BUN/Creatinine Ratio (6-22) Glucose (80-110) mg/dL Calcium (8.4-10.2) mg/dL Total Bilirubin (0.2-1.3) mg/dL AST (14-36) IU/L ALT (<35) IU/L Alkaline Phosphatase (38-126) U/L Total Creatine Kinase (30-135) U/L CK-MB (CK-2) CK-MB (CK-2) Rel Index Troponin I (0.01-0.034) ng/mL Total Protein (6.3-8.2) g/dL Albumin (3.5-5.0) g/dL Globulin (1.7-4.1) g/dL Albumin/Globulin Ratio (1.0-2.8) Urine RBC None seen (0-5/HPF) Urine WBC 0-1/hpf (0-5/HPF) Ur Squamous Epith Cells 0-1 /hpf (0-5/HPF) Urine Bacteria Occasional (0-1) D (None) Ur Culture Indicated? Cult not indicated SARS-CoV-2 (PCR) (Negative) Blood Type Antibody Screen Urine Dip Bedside Urine Glucose Negative Bedside Urine Bilirubin - Negative Bedside Urine Ketone - Negative Urine Specific [place] 1.015 Bedside Urine Occult Blood +/- Bedside Urine pH 7.0 Bedside Urine Protein - Negative Bedside Urine Urobilinogen - Negative Bedside Urine Nitrite - Negative Bedside Urine Leukocytes - Negative Esterase Point of care testing: Urine Dip Bedside Urine Glucose Negative Bedside Urine Bilirubin - Negative Bedside Urine Ketone - Negative Urine Specific [place] 1.015 Bedside Urine Occult Blood +/- Bedside Urine pH 7.0 Bedside Urine Protein - Negative Bedside Urine Urobilinogen - Negative Bedside Urine Nitrite - Negative Bedside Urine Leukocytes - Negative Esterase MDM Narrative Medical decision making narrative: CC: 67-year-old with bright red blood per rectum Complicating co-morbidities: Age, hypertension, hyperlipidemia Data collected from: Patient Medical records reviewed: Prior notes reviewed in our EMR Differential considered, but not limited to: Anemia, electrolyte abnormality, cardiac arrhythmia, dissection versus other Exam documented above, pertinent findings include: Patient quite anxious but has good color, is not diaphoretic, heart rate is regular lungs are clear abdomen soft and nontender, no signs of cauda equina such as saddle anesthesia, lower extremity weakness, depressed reflexes Lab Test results independently reviewed as above. Pertinent findings: No leukocytosis or left shift, no evidence of anemia even on repeat labs after fluids, platelets and coagulation studies within normal limits, electrolytes including BUN within normal limits, the repeat however does show a slight decrease in potassium Independently reviewed EKG as above Imaging studies independently reviewed: CT angiogram without abnormal findings Treatments: Protonix, Zofran, fluids and potassium supplementation Re-evaluations/Discussion: Patient doing quite well, no episodes of bleeding over the course of the visit, orthostatics negative, she is able to ambulate through the department without difficulty. Hemoglobin repeated after multiple hours and a L of fluid without any drop. Given her report of possible syncope, back pain, bleeding and some abdominal cramping alternate diagnoses including vascular abnormalities including AAA, dissection and other were considered hence the decision to order angiography of chest abdomen and pelvis which thankfully were unremarkable. Given the stability of her vitals, symptoms, labs she highly preferred I do not perform a rectal exam which I held off on. At this point time there is no indication that patient would need any specific intervention, hospitalization or transfer. She is appropriate for discharge. Patient and understand and agree with the diagnosis and plan. Questions answered to their apparent satisfaction Disposition: see below, along with detailed discharge instructions that have been reviewed with patient as well as indications for ED re-evaluation and additional outpatient follow up Discharge Plan Departure Patient Disposition: Home Clinical Impression: Bright red rectal bleeding, Acute hypokalemia, Fainting Instructions: Gastrointestinal Bleeding Activity Restrictions/Additional Instructions: *You have been diagnosed with [lower GI bleeding, low potassium and syncope. As we discussed your history and physical exam reassuring in the labs show no signs of anemia and we have repeated your blood counts and they did not change. You do have a subtle drop in your potassium and for this reason I have sent a prescription for potassium supplement to your pharmacy. Otherwise the labs and imaging are very reassuring and there is no indication of any diagnosis that requires a specific or immediate intervention] *What to do: [x ] New medication prescriptions sent to your pharmacy: [[facility] ] Please double your dose of Protonix from 40 mg once daily to 40 mg twice daily for the next week *Please follow up with your primary care provider in 2-3 days, call for an appointment. Let them know you were seen in the Emergency Department and that we ask that you be seen in follow up. We will electronically transmit a record of today's note if your PCP is in our system *Please consider a clear liquid diet for the next 24-48 hours and then slowly advance to regular as tolerated. Also, try to avoid alcohol, nicotine, caffeine, spicy, acidic or fatty foods as this may worsen your symptoms *If you do not have a primary care provider please contact the [facility] Resource line at [phone]. They will ask some questions about your medical history and help get you set up with a doctor in the community. *Return to Emergency Department if you should have any new, worsening or concerning symptoms, such as [fever greater than 101 F, shaking chills, worsening pain, persistent vomiting or other bothersome symptoms] * Prescriptions: No Action fluoxetine 20 MG tablet 20 mg PO QDAY Qty: 0 omeprazole 40 mg Capsule,Delayed Release(Dr/Ec) 40 mg PO DAILY lorazepam 0.5 mg Tablet 0.25 mg PO BID-TID PRN (Reason: Anxiety) albuterol sulfate [ProAir HFA] 90 mcg/actuation Hfa Aerosol Inhaler 2 puff INHALATION Q6H PRN (Reason: Shortness Of Breath) lisinopril 40 mg Tablet 40 mg PO DAILY atorvastatin 20 mg Tablet 20 mg PO DAILY potassium chloride 10 mEq capsule, extended release 10 meq PO BID Referrals: Tony Napoles MD [Primary Care Provider] - Dustin Shankar MD [Physician] - Stand Alone Forms: Patient Portal/API
[2022-11-25 11:56] LABS: Add Manual Diff / Slide Review NO; Basophils Absolute Auto 100 /uL (0-100); Basophils Percent Auto 0.8 % (0-2); Eosinophils Absolute Auto 100 /uL (0-450); Eosinophils Percent Auto 1.7 % (2-4); Hemoglobin 14.4 g/dL (12.0-16.0); Lymphocytes Absolute Auto 2800 /uL (1100-4500); Mean Corpuscular HGB Conc 35.2 % (30-36); Mean Corpuscular Hemoglobin 32.6 PG (26-34); Mean Corpuscular Volume 92.6 fL (80-100); Monocytes Absolute Auto 500 /uL (0-900); Monocytes Percent Auto 7.5 % (3-14); Neutrophils Absolute Auto 3400 /uL (1500-7000); Platelet Count 276 X10^3/uL (150-400); Red Blood Cell Count 4.42 X10^6/uL (4.0-5.2); Red Cell Distribution Width 12.7 % (11.6-14.8); White Blood Cell Count 6.9 X10^3/uL (4.5-11.0)
[2022-11-25] MEDS: ONDANSETRON 4 MG/2 ML INJ IV (12:04)
[2022-11-25] MEDS: PANTOPRAZOLE 40 MG VIAL 80 MG IV (12:05)
[2022-11-25 12:07] LABS: Alanine Aminotransferase 51 IU/L (<35); Albumin 4.3 g/dL (3.5-5.0); Albumin Globulin Ratio 1.6 (1.0-2.8); Alkaline Phosphatase 87 U/L (38-126); Aspartate Aminotransferase 38 IU/L (14-36); BUN Creatinine Ratio 10.9 (6-22); Bilirubin Total 0.6 mg/dL (0.2-1.3); Blood Urea Nitrogen 5 mg/dL (7-17); Calcium 9.1 mg/dL (8.4-10.2); Carbon Dioxide 28 mmol/L (22-32); Chloride 102 mmol/L (98-107); Creatine Kinase 91 U/L (30-135); Estimated Glomerular Filt Rate > 60 mL/min (>60); Globulin 2.7 g/dL (1.7-4.1); Glucose 95 mg/dL (80-110); HEMOLYSIS < 15 (0-50); Potassium 3.6 mmol/L (3.4-5.1); Prothrombin Time 11.2 SECONDS (10.1-12.7); Sodium 136 mmol/L (137-145)
[2022-11-25 12:08] LABS: PTT Partial Thromboplastin Tim 33 SECONDS (26-36)
[2022-11-25 12:18] LABS: Troponin I < 0.012 ng/mL (0.01-0.034)
[2022-11-25 12:39] LABS: Bacteria Urine Moderate (10-30); RBC Urine None Seen (0-5/HPF); WBC Urine 1-5/HPF (0-5/HPF)
[2022-11-25 12:47] LABS: COVID19 -Nasal RAPID Negative (Negative)
[2022-11-25] MEDS: SODIUM CHLORIDE 0.9% 1,000 ML 1000 ML IV (13:00)
--- NOTE | 2022-11-25 13:09 | DI.CT.S_ITS ---
PROCEDURE: CT ANGIO CHEST ABDOMEN PELVIS INDICATIONS: syncope, back pain, possible GI bleed TECHNIQUE: Precontrast 5 mm thick sections acquired from the lung apices to the iliac crests. After the administration of intravenous contrast, 2.5 mm thick sections again acquired from the lung apices to the iliac crests. Maximum intensity projection (MIP) oblique sagittal and coronal reformats were then acquired. For radiation dose reduction, the following was used: automated exposure control. COMPARISON: CT, CT LUNG LOW DOSE SCREENING, 12/26/2021, 9:42. FINDINGS: Image quality: Portions of the lower pelvis are suboptimally evaluated secondary to metallic streak artifact from sacral fusion hardware AORTA: No areas of hemodynamically significant stenosis, vascular occlusion, dissection or aneurysmal dilation. Scattered areas of atherosclerotic change are present most prominent in the infrarenal abdominal aorta. CHEST: Lungs and pleura: No acute airspace opacities. No pleural effusions or pneumothorax. Central and peripheral airways are patent and normal in caliber. Mediastinum: Heart size is normal. No pericardial effusion. No mediastinal or hilar adenopathy by size criteria. Central pulmonary arteries are normal in size. Mild appearance of distal esophageal thickening is present. Mild hiatal hernia is present. Bones and chest wall: No axillary adenopathy by size criteria. Thyroid gland demonstrates heterogeneous foci bilaterally, left greater than right, unchanged. No suspicious bony lesions. No vertebral body compression fractures. ABDOMEN: Vasculature: Celiac trunk and mesenteric arteries are patent. Renal arteries are also patent. Solid organs: Liver is prominent measuring 17.0 cm with steatosis. Gallbladder has been removed.. Biliary system is non dilated. Pancreas enhances normally. Spleen is normal in size and enhancement. No adrenal nodules. Both kidneys are normal in size and enhancement, without hydronephrosis. Peritoneum and bowel: No free fluid or air. Bowel loops are nonobstructive. There is circumferential thickening at the rectum. Nodes and vessels: No retroperitoneal or mesenteric adenopathy by size criteria. Inferior vena cava is normal in morphology. Miscellaneous: No ventral hernias. PELVIS: Genitourinary: Bladder wall thickness is normal. Miscellaneous: No inguinal hernias or adenopathy. No ventral hernias. Bones: No suspicious bony lesions. No vertebral body compression fractures. Sacral fusion is present. IMPRESSION: Atherosclerotic change within the aorta. No evidence of hemodynamically significant stenosis, vascular occlusion or dissection. Superior and inferior mesenteric arteries are patent. There is circumferential thickening at the rectum. While this could be installation service representative incomplete distention, further evaluation with colonoscopy is recommended as mass lesion cannot be excluded. Dictated by: Danay Jhaveri M.D. on 11/25/2022 at 14:25 Approved by: Danay Jhaveri M.D. on 11/25/2022 at 14:34
[2022-11-25 15:18] LABS: Add Manual Diff / Slide Review NO; Basophils Absolute Auto 100 /uL (0-100); Basophils Percent Auto 1.1 % (0-2); Eosinophils Absolute Auto 100 /uL (0-450); Eosinophils Percent Auto 1.4 % (2-4); Hematocrit 37.8 % (36-46); Hemoglobin 13.6 g/dL (12.0-16.0); Lymphocytes Absolute Auto 2800 /uL (1100-4500); Lymphocytes Percent Auto 35.2 % (25-40); Mean Corpuscular Hemoglobin 33.2 PG (26-34); Mean Corpuscular Volume 92.4 fL (80-100); Monocytes Absolute Auto 600 /uL (0-900); Monocytes Percent Auto 7.3 % (3-14); Neutrophils Absolute Auto 4300 /uL (1500-7000); Platelet Count 252 X10^3/uL (150-400); Red Blood Cell Count 4.09 X10^6/uL (4.0-5.2); Red Cell Distribution Width 12.6 % (11.6-14.8); White Blood Cell Count 7.8 X10^3/uL (4.5-11.0)
[2022-11-25 15:29] LABS: Alanine Aminotransferase 45 IU/L (<35); Albumin 3.6 g/dL (3.5-5.0); Albumin Globulin Ratio 1.4 (1.0-2.8); Alkaline Phosphatase 77 U/L (38-126); Aspartate Aminotransferase 36 IU/L (14-36); BUN Creatinine Ratio 9.8 (6-22); Bilirubin Total 0.6 mg/dL (0.2-1.3); Blood Urea Nitrogen 4 mg/dL (7-17); Calcium 8.4 mg/dL (8.4-10.2); Carbon Dioxide 24 mmol/L (22-32); Chloride 108 mmol/L (98-107); Estimated Glomerular Filt Rate > 60 mL/min (>60); Globulin 2.6 g/dL (1.7-4.1); Glucose 97 mg/dL (80-110); HEMOLYSIS < 15 (0-50); Sodium 138 mmol/L (137-145); Total Protein 6.2 g/dL (6.3-8.2)
[2022-11-25 15:54] LABS: Bacteria Urine Occasional (0-1); Culture Indicated Urine Cult Not Indicated; RBC Urine None Seen (0-5/HPF); Squamous Epithelial Cell Urine 0-1 /HPF (0-5/HPF); WBC Urine 0-1/HPF (0-5/HPF)
[2022-11-25] MEDS: POTASSIUM CHLORIDE 20 MEQ/15 ML UDC 40 MEQ PO (15:55)
== END 2022-11-25 16:28 | disposition home or self-care (01) ==
PROVIDERS: Emergency Provider Emergency Medicine; Family Provider Family Medicine; PCP Family Medicine
DX: K92.2 Gastrointestinal hemorrhage, unspecified (principal); E87.6 Hypokalemia; R55 Syncope and collapse; R10.9 Unspecified abdominal pain; Z20.822 Contact with and (suspected) exposure to COVID-19
CPT/HCPCS: 71275; 74174; 80053; 81003; 81015; 82550; 84484; 85025; 85610; 85730; 86850; 86900; 86901; 87086; 87635; 93005; 93010; 96361; 96374; 96375; 99284; C9803; C9113; J2405; Q9967

== ENCOUNTER 2023-06-27 10:16 | Emergency (ER) | payer OTHER, SELFPAY ==
[2019-04-14 11:45] VITALS: BMI 22.3
[2023-06-27] VITALS (9 sets, daily range): BP systolic 160–184; BP diastolic 70–77; PULSE 66–91; RESP 12–22; TEMP 36.5; O2SAT 94–100; BMI 24.9
--- NOTE | 2023-06-27 10:27 | DI.RAD.S_ITS ---
PROCEDURE: XR HIP W PEL IF DONE LT 2V INDICATIONS: fall, pain TECHNIQUE: AP pelvis with lateral view(s) of the left hip(s). COMPARISON: None. FINDINGS: Bones: Mild bilateral hip arthrosis. No displaced fracture or dislocation. Lumbar spine findings are separately dictated. Soft tissues: No suspicious calcifications. IMPRESSION: No acute radiographic abnormality. Mild bilateral hip arthrosis. If there is high concern for occult injury, consider repeat radiography or cross-sectional imaging. Dictated by: Meng Schmid M.D. on 06/27/2023 at 11:36 Approved by: Meng Schmid M.D. on 06/27/2023 at 11:37
--- NOTE | 2023-06-27 10:27 | DI.RAD.S_ITS ---
PROCEDURE: XR LUMBAR SPINE 2-3V INDICATIONS: fall, low back midline pain TECHNIQUE: 3 views of the lumbar spine were acquired. COMPARISON: [facility], CR, XR LUMBAR SPINE 2-3V, 04/14/2019, 10:04. [facility], CR, XR LUMBAR SPINE WITH FLEXION EXTENSION 5 VIEWS, 09/21/2022, 10:20. FINDINGS: Bones: L5-S1 fusion hardware appears similar to prior. Vertebral body heights are well maintained, with [id number] degenerative changes at the other levels. Straightening of the normal lumbar lordosis. No traumatic subluxation. Soft tissues: Vascular calcifications. Cholecystectomy clips peer IMPRESSION: Postsurgical findings at the lumbosacral junction. Degenerative changes. No acute radiographic changes. If there is high concern for occult injury, consider repeat radiography or cross-sectional imaging. Dictated by: Meng Schmid M.D. on 06/27/2023 at 11:37 Approved by: Meng Schmid M.D. on 06/27/2023 at 11:39
--- NOTE | 2023-06-27 10:27 | DI.RAD.S_ITS ---
PROCEDURE: XR KNEE LT 3V INDICATIONS: fall TECHNIQUE: 3 views of the knee were acquired. COMPARISON: None. FINDINGS: Bones: There are mild degenerative changes. No displaced fracture or dislocation. Patellar enthesopathy. Soft tissues: Possible small amount of joint fluid. IMPRESSION: Mild degenerative changes without acute radiographic abnormality. Possible small joint fluid. Patellar enthesopathy. If there is high concern for further derangement, consider MRI evaluation. Dictated by: Meng Schmid M.D. on 06/27/2023 at 11:35 Approved by: Meng Schmid M.D. on 06/27/2023 at 11:36
--- NOTE | 2023-06-27 10:28 | ED.FALL ---
HPI - Fall General Chief Complaint: Fall Stated Complaint: Fall Time Seen by Provider: 06/27/23 10:21 Source: EMS Mode of arrival: EMS History of Present Illness HPI Narrative: 67-year-old woman with a history of hypertension, hyperlipidemia, reflux, mild asthma stepped outside today and fell on the ice. She landed forward with the majority of the impact on her left knee with a twisting motion and she felt like something ?broke?. She then landed back on her bottom and is complaining of lumbar pelvic and sacral tenderness. She was not able to get up off the ground. Medics gave her 50 mics of fentanyl to get her onto the stretcher. She is not describing hitting her head no upper extremity complaints she is distally neurovascularly intact with the lower extremities. There is no pain or tenderness to the right lower extremity. Related Data Home Medications Medication Instructions Recorded Confirmed fluoxetine 20 mg tablet 20 mg PO QDAY ##0 11/23/11 10/28/21 albuterol sulfate 90 mcg/actuation 2 puff inhalation Q6H PRN 04/12/19 10/28/21 aerosol inhaler (ProAir HFA) Shortness Of Breath lisinopril 40 mg tablet 40 mg PO DAILY 04/12/19 10/28/21 lorazepam 0.5 mg tablet 0.25 mg PO BID-TID PRN Anxiety 04/12/19 10/28/21 omeprazole 40 mg capsule,delayed 40 mg PO DAILY 04/12/19 04/14/19 release atorvastatin 20 mg tablet 20 mg PO DAILY 04/14/19 10/28/21 potassium chloride 10 mEq 10 meq PO BID 11/25/22 11/25/22 capsule,extended release Previous Rx's Medication Instructions Recorded oxycodone-acetaminophen 5 mg-325 1 tab PO Q6H PRN pain #14 tabs 06/27/23 mg tablet Allergies Allergy/AdvReac Type Severity Reaction Status Date / Time Penicillins [PENICILLINS] Allergy Severe SWELLING, Verified 06/27/23 10:26 RASH, ANAPHYLAXIS Review of Systems Review of Systems Narrative: Pertinent positive and negative findings as per HPI Patient History Medical History Arthritis Anxiety Depression HLD (hyperlipidemia) HTN (hypertension) GERD (gastroesophageal reflux disease) GI bleed (03/13/14) Colitis Surgical History S/P epidural steroid injection History of colonoscopy Hx of cholecystectomy Hx of shoulder surgery H/O: hysterectomy Social History household members: spouse Smoking Status: Current every day smoker alcohol intake: former Smoking Status: Current every day smoker Substance Use Type: does not use Exam Initial Vital Signs Initial Vital Signs: Vital Signs Temperature 97.7 F 06/27/23 10:11 Pulse Rate 87 06/27/23 10:11 Respiratory Rate 22 06/27/23 10:11 Blood Pressure 184/76 H 06/27/23 10:11 Pulse Oximetry 98 06/27/23 10:11 Oxygen Delivery Method Room Air 06/27/23 10:11 General: Healthy appearing, in obvious pain but Able to give a complete and coherent history. Well-nourished well-developed HEENT: Moist mucous membranes, normal sclera with reactive pupils, there are no abrasions contusions or tenderness anywhere about her head Neck: No midline cervical spine tenderness, supple Respiratory: Lungs are clear to auscultation, no wheezing no rales no rhonchi. Full and symmetrical air movement Chest: No thoracic pain with palpation along the thoracic spine or rib cage Cardiac: Regular rate and rhythm no murmurs no bruits Abdomen: Soft, nontender, good bowel tones, no flank pain Skin: Warm and dry, no rashes Neurologic: Grossly neurologically intact with no obvious asymmetries or abnormalities Extremities: Left knee slightly flexed for comfort. Mild effusion contusion over the patella. No obvious hematoma. Ankle is unremarkable, she has some tenderness along the lumbar spine and the sacrum. Tenderness into the left hip and it is difficult to tell if this is independent of the lumbar spine in the knee pain. Upper extremities and right lower extremity are all unremarkable Psych: Cooperative, appropriate insight and affect Course Orders Ordered: ED Orders 06/27/23 10:27 XR hip w pel if done LT 2V Stat XR knee LT 3V Stat XR lumbar spine 2-3V Stat 06/27/23 10:47 XR ankle LT min 3V Stat Discontinued Medications Acetaminophen (Acetaminophen 325 Mg Tablet) 975 mg PO NOW ONE Stop: 06/27/23 10:24 Last Admin: 06/27/23 10:40 Dose: 975 mg Documented By: JULIO CESAR Ketorolac Tromethamine (Ketorolac 30 Mg/Ml Vial) 15 mg IV NOW ONE Stop: 06/27/23 10:24 Last Admin: 06/27/23 10:40 Dose: 15 mg Documented By: JULIO CESAR Oxycodone/Acetaminophen (Oxycodone/Acetaminophen 5/325 Tablet) 1 tab PO NOW ONE Stop: 06/27/23 11:54 Vital Signs Vital signs: Vital Signs - 8 hr 06/27/23 10:11 Temperature 97.7 F Pulse Rate 87 Respiratory Rate 22 Blood Pressure 184/76 H Pulse Oximetry 98 Oxygen Delivery Method Room Air MDM - Fall MDM Narrative Medical decision making narrative: CC: Slipped on ice with tenderness to the left knee and buttocks Data collected from: patient, medics Social determinants of health that may influence the patients condition: Medical records reviewed: Spinal surgery records from 2019 reviewed Differential considered: Vertebral fractures, pelvic fracture, left hip fracture,, knee fracture or ligamentous injury Exam documented above, pertinent findings include: Significant pain in the left knee with mild effusion developing. Tenderness along the lumbar spine and probably the left hip as well Imaging studies independently reviewed: Hip x-ray does not show acute fractures Lumbar spine shows prior surgical interventions but no new compression fractures Ankle fracture is unremarkable Knee films do not show any acute bony abnormalities Treatments: Oral Percocet Re-evaluations: Findings reviewed with the patient. Discussed need for knee immobilizer as well as use of a walker given her baseline leg weakness and uses a cane. Will need orthopedic follow-up Prior to discharge, patient was able to successfully ambulate to the bathroom and back with the use of a walker and knee immobilizer in place Procedure: Knee immobilizer placed in the left knee. Placed by nursing staff, re-evaluated by me after placement, appropriately placed and is neurovascularly intact Discussion: 67-year-old woman with mechanical fall slipping on ice. Acute knee pain and increasing musculoskeletal pain from the buttocks up to the lower thoracic spine without any obvious bony injuries on imaging studies. She does have help available at home. She is had bleeding colonic ulcer in the past and has been told to avoid ibuprofen. We talked about pain control with the use of Tylenol and Percocet as well as constipation and need for stool softener with the Percocet. Discussed the need for orthopedic follow-up regarding her knee in the importance of using the knee immobilizer if there is any sensation that the knee is stable. We also discussed high-risk times of falling, middle of the night as she is getting up to go to the bathroom unaided. Questions are answered and she will be safe for discharge Discharge Plan Departure Patient Disposition: Home Clinical Impression: Fall from slipping on ice Qualifiers: Encounter type: initial encounter Qualified Code(s): W00.9XXA - Unspecified fall due to ice and snow, initial encounter Injury of knee, left Qualifiers: Encounter type: initial encounter Qualified Code(s): S89.92XA - Unspecified injury of left lower leg, initial encounter Low back pain Qualifiers: Chronicity: acute Back pain laterality: midline Sciatica presence: without sciatica Qualified Code(s): M54.50 - Low back pain, unspecified Instructions: DI for Knee Sprain Activity Restrictions/Additional Instructions: Thank you for coming in today I am so sorry that you hurt herself so much with your fall today. Fortunately it does not look like you broken bones. You are going to be more sore over the next 48 hours. For median pain you can take 650-975 mg of Tylenol (to regular or 2 extra-strength) every 6 hours for pain. For severe pain you can substitute 1 Percocet for a Tylenol. Percocet has Tylenol and oxycodone. If you do use the Percocet, recognize that oxycodone is a narcotic, will cause constipation and you should use MiraLax preventively. Narcotics can also increased confusion and risk of falls. I would recommend icing your knee and her low back. A prescription for Percocet has been electronically transmitted to [facility] in [place] for you to greens picker later today Please use the knee immobilizer and the walker with the 1st few days to make sure that you are not going to fall secondary to pain. If your knee feels unstable you need to make sure the immobilizer stays in place. I would recommend follow-up with our [facility]. Please call them at [phone] and let them know that you are in the emergency department with a fall and have continued knee pain and need to be seen and evaluated. If you find that you are getting worse or develop any new symptoms, please feel free to return to the emergency department for further evaluation. Prescriptions: New oxycodone-acetaminophen 5-325 mg tablet 1 tab PO Q6H PRN (Reason: pain) Qty: 14 0RF No Action fluoxetine 20 MG tablet 20 mg PO QDAY Qty: 0 omeprazole 40 mg Capsule,Delayed Release(Dr/Ec) 40 mg PO DAILY lorazepam 0.5 mg Tablet 0.25 mg PO BID-TID PRN (Reason: Anxiety) albuterol sulfate [ProAir HFA] 90 mcg/actuation Hfa Aerosol Inhaler 2 puff INHALATION Q6H PRN (Reason: Shortness Of Breath) lisinopril 40 mg Tablet 40 mg PO DAILY atorvastatin 20 mg Tablet 20 mg PO DAILY potassium chloride 10 mEq capsule, extended release 10 meq PO BID Referrals: Tony Napoles MD [Primary Care Provider] - Stand Alone Forms: Patient Portal/API
[2023-06-27] MEDS: ACETAMINOPHEN 325 MG TABLET 975 MG PO (10:40)
[2023-06-27] MEDS: KETOROLAC 30 MG/ML VIAL 15 MG IV (10:40)
--- NOTE | 2023-06-27 10:47 | DI.RAD.S_ITS ---
PROCEDURE: XR ANKLE LT MIN 3V INDICATIONS: fall TECHNIQUE: 3 views of the ankle were acquired. COMPARISON: None. FINDINGS: Bones: No displaced acute fracture. No dislocation. There are mild degenerative changes. Tiny bone fragments adjacent to the medial malleolus. Soft tissues: No suspicious calcifications. IMPRESSION: Tiny bone fragments adjacent to the medial malleolus, possibly chronic. No definite acute displaced fracture. If there is high concern for occult injury, consider repeat radiography or cross-sectional imaging. Dictated by: Meng Schmid M.D. on 06/27/2023 at 11:34 Approved by: Meng Schmid M.D. on 06/27/2023 at 11:35
[2023-06-27] MEDS: OXYCODONE/ACETAMINOPHEN 5/325 TABLET 1 TAB PO (12:07)
--- NOTE | 2023-06-27 12:10 | PC.NURSE ---
abrasion and swelling noted to left knee. No obvious deformity. CMS intact
== END 2023-06-27 12:24 | disposition home or self-care (01) ==
PROVIDERS: Emergency Provider Emergency Medicine; Family Provider Family Medicine; PCP Family Medicine
DX: S89.92XA Unspecified injury of left lower leg, initial encounter (principal); M54.50 Low back pain, unspecified; M76.892 Other specified enthesopathies of left lower limb, excluding foot; M16.0 Bilateral primary osteoarthritis of hip; I10 Essential (primary) hypertension; E78.5 Hyperlipidemia, unspecified; K21.9 Gastro-esophageal reflux disease without esophagitis; J45.909 Unspecified asthma, uncomplicated; W00.9XXA Unspecified fall due to ice and snow, initial encounter; Y92.9 Unspecified place or not applicable
CPT/HCPCS: 72100; 73502; 73562; 73610; 96374; 99283; 99284; J1885

== ENCOUNTER → 2023-08-26 12:37 | Outpatient (CLI) | payer OTHER, SELFPAY ==
[2019-04-14 11:45] VITALS: BMI 22.3
--- NOTE | 2023-08-26 12:39 | DI.MG.S_ITS ---
BILATERAL DIGITAL SCREENING MAMMOGRAM 3D/2D WITH CAD: 08/26/2023 CLINICAL: Routine screening. Family history of breast cancer. Comparison is made to exams dated: 06/09/2022 mammogram, 04/29/2021 mammogram, 08/23/2019 mammogram - [facility], and 11/05/2017 mammogram - [facility]. Both breasts are almost entirely fatty (category a/<25% glandular tissue). Current study was also evaluated with a Computer Aided Detection (CAD) system. No significant masses, calcifications, or other findings are seen in either breast. There has been no significant interval change. IMPRESSION: NEGATIVE There is no mammographic evidence of malignancy. A 1 year screening mammogram is recommended. Based on the Tyrer Cuzick model (a risk assessment model) the patient's lifetime risk is 1.2% and her 10 year risk is 0.7%. According to the ACR, ACS, and NCCN guidelines, an annual breast MRI exam along with mammogram is recommended if the patient's lifetime risk is 20% or greater. This exam was interpreted at Station ID: [id number]. NOTE: For mammograms, a report in lay terms will be sent to the patient. Approximately 15% of breast malignancies will not be visualized mammographically. In the management of a palpable breast mass, a negative mammogram must not discourage biopsy of a clinically suspicious lesion. Electronically Signed By: Meng pal/jesse:08/26/2023 13:38:48 letter sent: Normal Exam ACR BI-RADS Category 1: Negative [id number]
== END ==
LOC: MAMMO 12:37
PROVIDERS: Family Provider Family Medicine; PCP Family Medicine; Referring Provider Family Medicine; Visit Provider Family Medicine
DX: Z12.31 Encounter for screening mammogram for malignant neoplasm of breast (principal); Z80.3 Family history of malignant neoplasm of breast
CPT/HCPCS: 77063; 77067

== ENCOUNTER 2023-11-16 09:00 | Outpatient (RCR) | payer OTHER, SELFPAY ==
[2019-04-14 11:45] VITALS: BMI 22.3
--- NOTE | 2023-11-09 13:41 | PT.OIE ---
Current Diagnoses Spinal stenosis, lumbar region with neurogenic claudication (11/09/23) Past Medical History (Last Reviewed 06/27/23 @ 10:29 by Isabela Martinez MD) Anxiety Arthritis Colitis Depression GERD (gastroesophageal reflux disease) GI bleed (10/12/13) HLD (hyperlipidemia) HTN (hypertension) Past Surgical History (Last Reviewed 06/27/23 @ 10:29 by Isabela Martinez MD) H/O: hysterectomy History of colonoscopy Hx of cholecystectomy Hx of shoulder surgery S/P epidural steroid injection Visit Care Team Role Provider Type Tony Napoles MD Family Provider Non-Staff Primary Care Provider Specialty: Medical Address: [address] [place] [address], [place], [address] Email: Yessenia Malcolm MD Attending Provider Physician Referring Provider Specialty: Orthopedics Orthopedic Surgery Address: [address] [place] [address], [id number] Email: [email or web address] [facility] Initial Evaluation PT-OP-A Visit Information Start: 11/07/23 08:50 Freq: Status: Active Protocol: Document 11/09/23 08:15 MB (Rec: 11/09/23 08:27 MB [id number]) Out-Patient Physical Therapy Visit Information Visit Information Visit Type Initial Evaluation Visit Note [employer] 08/20 before KX Visit Start Time 08:15 Visit Stop Time 08:55 Visit Number 1 Number of TAR BOILER Visits 0 Evaluation Information Evaluation Date 11/09/23 PT-OP-B Current Condition Start: 11/07/23 08:50 Freq: Status: Active Protocol: Document 11/09/23 08:15 MB (Rec: 11/09/23 08:27 [id number]) Current Condition History of Current Condition Onset Date 2016 Current Complaints Pain from the waist down History of Current Condition Pt states that she is at PT because she has to do it first before she can have a spinal injection. She saw Dr. Malcolm and she had PT, injections and surgery in the past. She has an old lumbar fusion from 2018 . She does not think that PT will be helpful. The pain as been the worst it every has. She went shopping with a friend last week and walk too much and she has still had very high pain. She rates the pain as 8/10. She has been crying d/t the pain. She sleeps okay and takes a sleeping pill. She sleeps on her right greater than left side. Pt is smoking. Vacuuming and mopping floors is troublesome. She makes the bed. Pt uses cane in right hand because it makes her more steady. Her LBP is bad all the time. Pt has pain down the front and back of both legs. Treatment Goals Patient/Caregiver Goals To stop the pain. PT-OP-C Subjective Start: 11/07/23 08:50 Freq: Status: Active Protocol: Document 11/09/23 08:15 MB (Rec: 11/09/23 08:27 MB [id number]) OP-PT Subjective Patient Comments Patient Comments See history of current condition Patient Questionnaires Lower Extremity Functional Scale LEFS Score 22/50 LEFS Impairment 40 to 59% Impaired (Score 32- 47) PT-OP-D Balance Start: 11/07/23 08:50 Freq: Status: Active Protocol: Document 11/09/23 08:15 MB (Rec: 11/09/23 13:41 MB [id number]) Balance Tests Other Other Balance Tests Performed Poor: pt has poor standing tolerance with posture and spinal movement testing positions and she often asked about sitting or reaches for cane. She is imbalanced with all turning and requires CGA or use of cane PT-OP-G Mobility & Gait Start: 11/07/23 08:50 Freq: Status: Active Protocol: Document 11/09/23 08:15 MB (Rec: 11/09/23 13:41 MB [id number]) OP Gait Assessment Comments Gait Comments Unsteady and antalgic gait with slow speed with cane in right hand and step-to meera and wide JASMIN PT-OP-J Posture/Palpation/Skin Start: 11/07/23 08:50 Freq: Status: Active Protocol: Document 11/09/23 08:15 MB (Rec: 11/09/23 13:41 MB [id number]) Posture Evaluation Comments Posture Comments Standing posture: forward head , rounded shoulders, left thoracic convexity, decreased lumbar lordosis, right iliac crest higher than the left, increased tension in B gastrocsoleus to palpation PT-OP-K Range of Motion Start: 11/07/23 08:50 Freq: Status: Active Protocol: Document 11/09/23 08:15 MB (Rec: 11/09/23 13:41 MB [id number]) Lumbar Spine Range of Motion Lumbar Spine Active Comments Pt has very little tolerance to lumbar movement testing. She slides hands down thighs to knees and flexes only to knees, she has 5 deg extension , reports of pain and needing cane. SB with back against the wall and she slides B hands 1 down lateral legs SLR to check for disc tolerance and right leg to 45 deg and jump sign and left leg to 60 deg PT-OP-M Strength Start: 11/07/23 08:50 Freq: Status: Active Protocol: Document 11/09/23 08:15 MB (Rec: 11/09/23 13:41 MB [id number]) Hip Strength Hip Manual Muscle Testing Left Flexion (L2) 4+ Good+ Extension (S1) 4- Good- Abduction 4+ Good+ Comments Pt supine Right Flexion (L2) 4+ Good+ Extension (S1) 4- Good- Abduction 4- Good- Comments Pt supine Knee Strength Knee Manual Muscle Testing Left Flexion (S2) 4+ Good+ Extension (L3) 5 Normal Comments Pt supine Right Flexion (S2) 3+ Fair+ Extension (L3) 4+ Good+ Comments Pt supine Ankle/Foot Strength Ankle and Foot Manual Muscle Testing Bilateral Dorsiflexion (L4) 5 Normal Comments Pt supine Toe Strength Toe Manual Muscle Testing Left Great Toe Extension 4+ Good+ Right Great Toe Extension 4+ Good+ PT-OP-Q Treatments Start: 11/07/23 08:50 Freq: Status: Active Protocol: Document 11/09/23 08:15 MB (Rec: 11/09/23 13:41 MB [id number]) Therapeutic Exercises Supine Exercises Pelvic realignment exercises Side bilateral Equipment Used Blue ball Reps/Minutes 5 reps, 3 sec hold all exercises Comments Feet together ball squeeze iso , knee opp ankle iso, thigh press down iso Self-Care/Home Management Treatment Education Patient Education Body Mechanics,Joint Protection,Pain Management, Posture,Safety Other Education Ed pt on benefits of log rolling, ice and heat (pt prefers heat), proper sleeping position with pillow support between legs, conversation about pt's beliefs about needs and what will help her the most and how we will tailor PT plan to that and stop if we do not improve her symptoms PT-OP-T Assessment and Plan Start: 11/07/23 08:50 Freq: Status: Active Protocol: Document 11/09/23 08:15 MB (Rec: 11/09/23 13:41 MB [id number]) Physical Therapy Assessment Rehab Potential Rehabilitation Potential Poor Evaluation Complexity Number of Personal Factors/Comorbidities 1-2 Number of Body Systems Impaired 3 Clinical Presentation at Evaluation Evolving Impairments Impairments Activity Tolerance,Balance, Functional Activities, Functional Mobility,Gait,Pain, Posture,ROM,Sensation,Soft Tissue Mobility,Strength, Transfers Goals 2 Impairment Lack of HEP Furnace Combination Analyst Goal (LTG) Pt will perform progressive HEP with I including pelvic realignment, postural, gentle flexibility, relaxation, gentle strengthening and balance exercises to improve pain and function. LTG Duration 5 weeks 1 Impairment Oswestry score reflecting 44% impairment [facility] Goal (LTG) Pt will present with an improved Oswestry score to reflect no more than 30% impairment to improve quality of life. LTG Duration 5 weeks Assessment Summary Assessment Pt is a 68 y/o female reporting many year history of back pain, previous lumbar injections and fusion and PT. Pt is honest and states that she does not feel that PT will be helpful and that she is here to meet insurance requirement before being offered injection. Pt presents with imbalance with gait and standing and has poor tolerance to standing for PT to check posture and lumbar mobility. She has high pain with SLR in supine and all MMT LEs in supine. Pelvic realignment exercises that are gentle isometrics also increase pain. She reports pain is only relieved by hot tub. PT attempts to listen well to pt and given pt's high pain that is provoked with all activities and is not easily relieved and her belief that PT will not be helpful, PT will initiate trial for 5-6 treatments and d/c if PT provokes symptoms. Will see if gentle manual work, education and exercise can help pt. Physical Therapy Plan Frequency and Duration Frequency of Treatment 2x/Week Duration of treatment (weeks) 5 Plan of Care Start Date 11/09/23 Plan of Care End Date 12/14/23 Therapeutic Interventions Therapeutic Interventions Balance Training,Canalithic Repositioning,Coordination Training,Gait Training,Home Exercise Program,Joint Mobilizations,Manual Therapy, Neuromuscular Re-education, Patient/Caregiver Education, Self-Care/Home Management,Soft Tissue Mobilization,Taping, Therapeutic Activities, Therapeutic Exercises Modalities Cold Pack/Ice Massage,Electric Stimulation,Hot Packs, Ultrasound Next Visit Focus/Plan Next Note Type Treatment Note Next Visit Plan Review pelvic realignment exercises and initiate manual work
--- NOTE | 2023-11-09 13:41 | PT.OPPOC ---
Physical, Occupational & Speech Therapy At [facility] Current Diagnoses Spinal stenosis, lumbar region with neurogenic claudication (11/09/23) Visit Care Team Role Provider Type Tony Napoles MD Family Provider Non-Staff Primary Care Provider Specialty: Medical Address: [address] [facility], [place], [address] Email: Yessenia Malcolm MD Attending Provider Physician Referring Provider Specialty: Orthopedics Orthopedic Surgery Address: [address] [place] [address], [place], [address] Email: [email or web address] Plan Of Care PT-OP-T Assessment and Plan Start: 11/07/23 08:50 Freq: Status: Active Protocol: Document 11/09/23 08:15 MB (Rec: 11/09/23 13:41 MB [id number]) Physical Therapy Assessment Rehab Potential Rehabilitation Potential Poor Evaluation Complexity Number of Personal Factors/Comorbidities 1-2 Number of Body Systems Impaired 3 Clinical Presentation at Evaluation Evolving Impairments Impairments Activity Tolerance,Balance, Functional Activities, Functional Mobility,Gait,Pain, Posture,ROM,Sensation,Soft Tissue Mobility,Strength, Transfers Goals 2 Impairment Lack of HEP Nursing Home Goal (LTG) Pt will perform progressive HEP with I including pelvic realignment, postural, gentle flexibility, relaxation, gentle strengthening and balance exercises to improve pain and function. LTG Duration 5 weeks 1 Impairment Oswestry score reflecting 44% impairment Consultant In Ergonomics And Safety Goal (LTG) Pt will present with an improved Oswestry score to reflect no more than 30% impairment to improve quality of life. LTG Duration 5 weeks Assessment Summary Assessment Pt is a 68 y/o female reporting many year history of back pain, previous lumbar injections and fusion and PT. Pt is honest and states that she does not feel that PT will be helpful and that she is here to meet insurance requirement before being offered injection. Pt presents with imbalance with gait and standing and has poor tolerance to standing for PT to check posture and lumbar mobility. She has high pain with SLR in supine and all MMT LEs in supine. Pelvic realignment exercises that are gentle isometrics also increase pain. She reports pain is only relieved by hot tub. PT attempts to listen well to pt and given pt's high pain that is provoked with all activities and is not easily relieved and her belief that PT will not be helpful, PT will initiate trial for 5-6 treatments and d/c if PT provokes symptoms. Will see if gentle manual work, education and exercise can help pt. Physical Therapy Plan Frequency and Duration Frequency of Treatment 2x/Week Duration of treatment (weeks) 5 Plan of Care Start Date 11/09/23 Plan of Care End Date 12/14/23 Therapeutic Interventions Therapeutic Interventions Balance Training,Canalithic Repositioning,Coordination Training,Gait Training,Home Exercise Program,Joint Mobilizations,Manual Therapy, Neuromuscular Re-education, Patient/Caregiver Education, Self-Care/Home Management,Soft Tissue Mobilization,Taping, Therapeutic Activities, Therapeutic Exercises Modalities Cold Pack/Ice Massage,Electric Stimulation,Hot Packs, Ultrasound Next Visit Focus/Plan Next Note Type Treatment Note Next Visit Plan Review pelvic realignment exercises and initiate manual work Plan of Care Dates Plan of Care Start Date 11/09/23 Plan of Care End Date 12/14/23 Electronically Signed by: Virginie Nice, PT 11/09/23 7819 If you are in agreement with this Plan of Care, please return a signed and dated copy. I have reviewed this Plan of Care and certify that the skilled therapy services above are required to meet the patient?s needs. Physician Signature Date Printed Name and Credentials Clinical Instructor Signature Printed Name and Credentials
--- NOTE | 2023-11-10 11:18 | PT.OTN ---
Current Diagnoses Spinal stenosis, lumbar region with neurogenic claudication (11/10/23) Physical Therapy Treatment Note PT-OP-A Visit Information Start: 11/07/23 08:50 Freq: Status: Active Protocol: Document 11/10/23 10:31 MB (Rec: 11/10/23 11:17 MB [id number]) Out-Patient Physical Therapy Visit Information Visit Information Visit Type Treatment Note Visit Note [facility] [employer] 09/20 before KX Visit Start Time 10:31 Visit Stop Time 11:11 Visit Number 2 Number of CERTIFIED WELLNESS PROGRAM MANAGER Visits 0 PT-OP-B Current Condition Start: 11/07/23 08:50 Freq: Status: Active Protocol: Document 11/09/23 08:15 MB (Rec: 11/09/23 08:27 MB [id number]) Current Condition History of Current Condition Onset Date 2016 Current Complaints Pain from the waist down History of Current Condition Pt states that she is at PT because she has to do it first before she can have a spinal injection. She saw Dr. Malcolm and she had PT, injections and surgery in the past. She has an old lumbar fusion from 2018 . She does not think that PT will be helpful. The pain as been the worst it every has. She went shopping with a friend last week and walk too much and she has still had very high pain. She rates the pain as 8/10. She has been crying d/t the pain. She sleeps okay and takes a sleeping pill. She sleeps on her right greater than left side. Pt is smoking. Vacuuming and mopping floors is troublesome. She makes the bed. Pt uses cane in right hand because it makes her more steady. Her LBP is bad all the time. Pt has pain down the front and back of both legs. Treatment Goals Patient/Caregiver Goals To stop the pain. PT-OP-C Subjective Start: 11/07/23 08:50 Freq: Status: Active Protocol: Document 11/10/23 10:31 MB (Rec: 11/10/23 11:17 MB [id number]) OP-PT Subjective Patient Comments Patient Comments Pt states that she is hurting bad today and she has antalgic gait with cane in right hand with step-to meera. She loaned her 4WRW out. The pelvic realignment exercises bothered her last night. PT-OP-D Balance Start: 11/07/23 08:50 Freq: Status: Active Protocol: Document 11/09/23 08:15 MB (Rec: 11/09/23 13:41 MB [id number]) Balance Tests Other Other Balance Tests Performed Poor: pt has poor standing tolerance with posture and spinal movement testing positions and she often asked about sitting or reaches for cane. She is imbalanced with all turning and requires CGA or use of cane PT-OP-G Mobility & Gait Start: 11/07/23 08:50 Freq: Status: Active Protocol: Document 11/09/23 08:15 MB (Rec: 11/09/23 13:41 MB [id number]) OP Gait Assessment Comments Gait Comments Unsteady and antalgic gait with slow speed with cane in right hand and step-to meera and wide JASMIN PT-OP-J Posture/Palpation/Skin Start: 11/07/23 08:50 Freq: Status: Active Protocol: Document 11/09/23 08:15 MB (Rec: 11/09/23 13:41 MB [id number]) Posture Evaluation Comments Posture Comments Standing posture: forward head , rounded shoulders, left thoracic convexity, decreased lumbar lordosis, right iliac crest higher than the left, increased tension in B gastrocsoleus to palpation PT-OP-K Range of Motion Start: 11/07/23 08:50 Freq: Status: Active Protocol: Document 11/09/23 08:15 MB (Rec: 11/09/23 13:41 MB [id number]) Lumbar Spine Range of Motion Lumbar Spine Active Comments Pt has very little tolerance to lumbar movement testing. She slides hands down thighs to knees and flexes only to knees, she has 5 deg extension , reports of pain and needing cane. SB with back against the wall and she slides B hands 1 down lateral legs SLR to check for disc tolerance and right leg to 45 deg and jump sign and left leg to 60 deg PT-OP-M Strength Start: 11/07/23 08:50 Freq: Status: Active Protocol: Document 11/09/23 08:15 MB (Rec: 11/09/23 13:41 MB [id number]) Hip Strength Hip Manual Muscle Testing Left Flexion (L2) 4+ Good+ Extension (S1) 4- Good- Abduction 4+ Good+ Comments Pt supine Right Flexion (L2) 4+ Good+ Extension (S1) 4- Good- Abduction 4- Good- Comments Pt supine Knee Strength Knee Manual Muscle Testing Left Flexion (S2) 4+ Good+ Extension (L3) 5 Normal Comments Pt supine Right Flexion (S2) 3+ Fair+ Extension (L3) 4+ Good+ Comments Pt supine Ankle/Foot Strength Ankle and Foot Manual Muscle Testing Bilateral Dorsiflexion (L4) 5 Normal Comments Pt supine Toe Strength Toe Manual Muscle Testing Left Great Toe Extension 4+ Good+ Right Great Toe Extension 4+ Good+ PT-OP-Q Treatments Start: 11/07/23 08:50 Freq: Status: Active Protocol: Document 11/10/23 10:31 MB (Rec: 11/10/23 11:17 MB [id number]) Gait Training Gait Activity Gait training Comments Right hand cane with antalgic, slow and step-to gait and leaning to right side, PT provides rollator and gait is much better, more even and ed in benefits of maybe lowering cane and using rollator Manual Therapy Treatment Other Other Manual Treatments Pt hook lying with head supported and legs up on plinth: Gentle positional release hip flexor and quadratus lumborum, positional release ribs and thoracic spine B and increased tension globally and pt is very uncomfortable and needs sitting rest break Neuro Re-Education Treatment Other Activities Diaphragm breathing Comments Pt hook lying and hands on stomach and ed to breathe in through nose and tummy expands and breathe out and tummy deflates and pt initiates today. She is a shallow breather and this affects visceral and rib mobility and nervous system PT-OP-T Assessment and Plan Start: 11/07/23 08:50 Freq: Status: Active Protocol: Document 11/10/23 10:31 MB (Rec: 11/10/23 11:17 MB [id number]) Physical Therapy Assessment Rehab Potential Rehabilitation Potential Poor Evaluation Complexity Number of Personal Factors/Comorbidities 1-2 Number of Body Systems Impaired 3 Clinical Presentation at Evaluation Evolving Impairments Impairments Activity Tolerance,Balance, Functional Activities, Functional Mobility,Gait,Pain, Posture,ROM,Sensation,Soft Tissue Mobility,Strength, Transfers Goals 2 Impairment Lack of HEP [facility] Goal (LTG) Pt will perform progressive HEP with I including pelvic realignment, postural, gentle flexibility, relaxation, gentle strengthening and balance exercises to improve pain and function. LTG Duration 5 weeks 1 Impairment Oswestry score reflecting 44% impairment Practice Specialist Goal (LTG) Pt will present with an improved Oswestry score to reflect no more than 30% impairment to improve quality of life. LTG Duration 5 weeks Assessment Summary Assessment Gait is antalgic with cane and better with RW. She is uncomfortable with gentle manual work. Her breathing is shallow. Today, benefits of myofascial work did not outweigh positioning causing pain. Physical Therapy Plan Frequency and Duration Frequency of Treatment 2x/Week Duration of treatment (weeks) 5 Plan of Care Start Date 11/09/23 Plan of Care End Date 12/14/23 Therapeutic Interventions Therapeutic Interventions Balance Training,Canalithic Repositioning,Coordination Training,Gait Training,Home Exercise Program,Joint Mobilizations,Manual Therapy, Neuromuscular Re-education, Patient/Caregiver Education, Self-Care/Home Management,Soft Tissue Mobilization,Taping, Therapeutic Activities, Therapeutic Exercises Modalities Cold Pack/Ice Massage,Electric Stimulation,Hot Packs, Ultrasound Next Visit Focus/Plan Next Note Type Treatment Note Next Visit Plan Review pelvic realignment exercises and con't manual work, consider gentle knee rocking and pelvic tilt, therapy ball sitting
--- NOTE | 2023-11-16 09:24 | PT.OTN ---
Current Diagnoses Spinal stenosis, lumbar region with neurogenic claudication (11/16/23) Physical Therapy Treatment Note PT-OP-A Visit Information Start: 11/07/23 08:50 Freq: Status: Active Protocol: Document 11/16/23 08:58 MB (Rec: 11/16/23 09:23 MB [id number]) Out-Patient Physical Therapy Visit Information Visit Information Visit Type Treatment Note Visit Note [employer] 09/20 before KX Visit Start Time 08:58 Visit Stop Time 09:21 Visit Number 3 Number of IMMIGRATION ATTORNEY Visits 0 PT-OP-B Current Condition Start: 11/07/23 08:50 Freq: Status: Active Protocol: Document 11/09/23 08:15 MB (Rec: 11/09/23 08:27 MB [id number]) Current Condition History of Current Condition Onset Date 2016 Current Complaints Pain from the waist down History of Current Condition Pt states that she is at PT because she has to do it first before she can have a spinal injection. She saw Dr. Malcolm and she had PT, injections and surgery in the past. She has an old lumbar fusion from 2018 . She does not think that PT will be helpful. The pain as been the worst it every has. She went shopping with a friend last week and walk too much and she has still had very high pain. She rates the pain as 8/10. She has been crying d/t the pain. She sleeps okay and takes a sleeping pill. She sleeps on her right greater than left side. Pt is smoking. Vacuuming and mopping floors is troublesome. She makes the bed. Pt uses cane in right hand because it makes her more steady. Her LBP is bad all the time. Pt has pain down the front and back of both legs. Treatment Goals Patient/Caregiver Goals To stop the pain. PT-OP-C Subjective Start: 11/07/23 08:50 Freq: Status: Active Protocol: Document 11/16/23 08:58 MB (Rec: 11/16/23 09:23 MB [id number]) OP-PT Subjective Patient Comments Patient Comments Pt gait trains with rollator and she states that is working a lot better. PT brings up that gentle intervention did not seem helpful but actually seemed more harmful last treatment date and pt agrees that she does not feel that PT is helpful. She has had many experiences with PT in the past and it has not helped her problem. PT, pt and agree that discontinuing PT is the best thing at this time. PT-OP-D Balance Start: 11/07/23 08:50 Freq: Status: Active Protocol: Document 11/09/23 08:15 MB (Rec: 11/09/23 13:41 MB [id number]) Balance Tests Other Other Balance Tests Performed Poor: pt has poor standing tolerance with posture and spinal movement testing positions and she often asked about sitting or reaches for cane. She is imbalanced with all turning and requires CGA or use of cane PT-OP-G Mobility & Gait Start: 11/07/23 08:50 Freq: Status: Active Protocol: Document 11/09/23 08:15 MB (Rec: 11/09/23 13:41 MB [id number]) OP Gait Assessment Comments Gait Comments Unsteady and antalgic gait with slow speed with cane in right hand and step-to meera and wide JASMIN PT-OP-J Posture/Palpation/Skin Start: 11/07/23 08:50 Freq: Status: Active Protocol: Document 11/09/23 08:15 MB (Rec: 11/09/23 13:41 MB [id number]) Posture Evaluation Comments Posture Comments Standing posture: forward head , rounded shoulders, left thoracic convexity, decreased lumbar lordosis, right iliac crest higher than the left, increased tension in B gastrocsoleus to palpation PT-OP-K Range of Motion Start: 11/07/23 08:50 Freq: Status: Active Protocol: Document 11/09/23 08:15 MB (Rec: 11/09/23 13:41 MB [id number]) Lumbar Spine Range of Motion Lumbar Spine Active Comments Pt has very little tolerance to lumbar movement testing. She slides hands down thighs to knees and flexes only to knees, she has 5 deg extension , reports of pain and needing cane. SB with back against the wall and she slides B hands 1 down lateral legs SLR to check for disc tolerance and right leg to 45 deg and jump sign and left leg to 60 deg PT-OP-M Strength Start: 11/07/23 08:50 Freq: Status: Active Protocol: Document 11/09/23 08:15 MB (Rec: 11/09/23 13:41 MB [id number]) Hip Strength Hip Manual Muscle Testing Left Flexion (L2) 4+ Good+ Extension (S1) 4- Good- Abduction 4+ Good+ Comments Pt supine Right Flexion (L2) 4+ Good+ Extension (S1) 4- Good- Abduction 4- Good- Comments Pt supine Knee Strength Knee Manual Muscle Testing Left Flexion (S2) 4+ Good+ Extension (L3) 5 Normal Comments Pt supine Right Flexion (S2) 3+ Fair+ Extension (L3) 4+ Good+ Comments Pt supine Ankle/Foot Strength Ankle and Foot Manual Muscle Testing Bilateral Dorsiflexion (L4) 5 Normal Comments Pt supine Toe Strength Toe Manual Muscle Testing Left Great Toe Extension 4+ Good+ Right Great Toe Extension 4+ Good+ PT-OP-Q Treatments Start: 11/07/23 08:50 Freq: Status: Active Protocol: Document 11/16/23 08:58 MB (Rec: 11/16/23 09:23 MB [id number]) Neuro Re-Education Treatment Other Activities Diaphragm breathing Comments Re-ed today in hook lying and discussed benefits of nasal breathing as well to help parasympathetic nervous system , nitric oxide exchange and overall relaxation Self-Care/Home Management Treatment Education Other Education Extensive discussion and education with pt and about things PT can offer, barriers with PT and recommendations, possibly getting into the pool and follow-up with surgeon PT-OP-T Assessment and Plan Start: 11/07/23 08:50 Freq: Status: Active Protocol: Document 11/16/23 08:58 MB (Rec: 11/16/23 09:23 MB [id number]) Physical Therapy Assessment Assessment Summary Assessment Pt has switched over to the rollator and her walking is better as far as antalgic appearance, speed and c/o pain . Ed pt in diaphragm breathing . Initiation of other exercises and gentle manual work increased pain. PT nor pt feel that PT is beneficial to pt at this time as everything increases pain and PT has not been helpful in the past. Discussed all PT options with pt and d/cing PT is the most appropriate. Recommend refer back to doctor.
== END 2023-11-16 09:29 ==
LOC: PHYS 09:00
PROVIDERS: Family Provider Family Medicine; PCP Family Medicine; Referring Provider Orthopaedic Surgery Orthopaedic Surgery of the Spine; Visit Provider Orthopaedic Surgery Orthopaedic Surgery of the Spine
DX: M48.062 Spinal stenosis, lumbar region with neurogenic claudication (principal)
CPT/HCPCS: 97110; 97112; 97116; 97140; 97161; 97535

== ENCOUNTER → 2023-11-29 08:41 | Outpatient (CLI) | payer OTHER, SELFPAY ==
[2019-04-14 11:45] VITALS: BMI 22.3
[2023-11-29 09:53] LABS: Add Manual Diff / Slide Review NO; Basophils Absolute Auto 100 /uL (0-100); Basophils Percent Auto 0.6 % (0-2); Eosinophils Absolute Auto 100 /uL (0-450); Eosinophils Percent Auto 1.5 % (2-4); Lymphocytes Absolute Auto 2200 /uL (1100-4500); Lymphocytes Percent Auto 25.1 % (25-40); Mean Corpuscular HGB Conc 34.8 % (30-36); Mean Corpuscular Hemoglobin 33.5 PG (26-34); Mean Corpuscular Volume 96.1 fL (80-100); Monocytes Absolute Auto 500 /uL (0-900); Monocytes Percent Auto 5.4 % (3-14); Neutrophils Absolute Auto 5800 /uL (1500-7000); Neutrophils Percent Auto 67.4 % (50-75); Platelet Count 268 X10^3/uL (150-400); Red Blood Cell Count 4.48 X10^6/uL (4.0-5.2); Red Cell Distribution Width 12.6 % (11.6-14.8); White Blood Cell Count 8.7 X10^3/uL (4.5-11.0)
[2023-11-29 10:14] LABS: Blood Urea Nitrogen 4 mg/dL (7-17); Calcium 9.8 mg/dL (8.4-10.2); Carbon Dioxide 31 mmol/L (22-32); Chloride 107 mmol/L (98-107); Estimated Glomerular Filt Rate > 60 mL/min (>60); Glucose 98 mg/dL (80-110); HEMOLYSIS < 15 (0-50); Potassium 3.3 mmol/L (3.4-5.1); Sodium 141 mmol/L (137-145)
== END ==
LOC: RESP 08:42
PROVIDERS: Family Provider Family Medicine; PCP Family Medicine; Referring Provider Orthopaedic Surgery Orthopaedic Surgery of the Spine; Visit Provider Orthopaedic Surgery Orthopaedic Surgery of the Spine
DX: Z01.818 Encounter for other preprocedural examination (principal); Z01.812 Encounter for preprocedural laboratory examination
CPT/HCPCS: 36415; 80048; 85025; 93005

== ENCOUNTER 2024-01-03 07:33 | Inpatient (IN) | payer OTHER, SELFPAY ==
[2019-04-14 11:45] VITALS: BMI 22.3
[2023-12-22 08:33] VITALS: BMI 27.3
[2024-01-03] VITALS (15 sets, daily range): BP systolic 97–141; BP diastolic 41–84; PULSE 89–109; RESP 9–24; TEMP 36.4–37.2; O2SAT 92–98; BMI 23.6
[2024-01-03] MEDS: ACETAMINOPHEN 325 MG TABLET 975 MG PO (08:35)
[2024-01-03] MEDS: ALBUTEROL/IPRATROPIUM 3 ML AMPUL INH ×2 (08:35→13:41)
[2024-01-03] MEDS: LACTATED RINGERS 1,000 ML 42 ML IV ×3 (08:35→13:50)
--- NOTE | 2024-01-03 09:06 | PM.PREOP ---
Pre-operative Note Interval Note History & Physical reviewed/Exam performed by Physician: Yes Changes to H&P: No
[2024-01-03] MEDS: MIDAZOLAM 2 MG/2 ML VIAL IV (09:44)
[2024-01-03] MEDS: CEFAZOLIN 2 GM/100 ML PREMIX 100 ML IV ×2 (10:05→17:08)
[2024-01-03] MEDS: BUPIVACAINE 0.25% (PF) 30 ML, EPINEPHrine 0.15 MG INJ (10:27)
[2024-01-03] MEDS: BUPIVACAINE LIPOSOME 266 MG/20 ML VIAL INJ (10:28)
--- NOTE | 2024-01-03 12:46 | P.OP_ITS ---
Operative Date/Time/Diagnoses Date of procedure: 01/03/24 Time of procedure: 10:00 Pre-op diagnosis: 1. L4-5 spinal stenosis 2. Lumbar foramen stenosis 3. History of L5-S1 fusion with instrumentation Post-op diagnosis: same Procedure & Clinicians Procedure: 1. L4-5 posterolateral and posterior interbody fusion 2. L4-5 posterior interbody cage placement 3. L5-S1 posterior non-segmental instrumentation removal 4. L5-S1 revision laminectomy with exploration of fusion 5. L4-5, L5-S1 posterior segmental instrumentation with pedicle screw placement 6. L5-S1 posterolatearl fusion 7. Creole of bone marrow from iliac crest through a separate incision 8. Utilization of microsurgical technique and operating microscope Same procedure as scheduled: Yes Indications: Patient has been having chronic back pain and worsening lumbar radiculopathy. Patient prior history of L5-S1 fusion and has been having progressively worsening back pain and right worse than left leg pain. Patient's recent MRI shows L4-5 progressed spondylosis with central and foraminal stenosis correlating with her symptoms with prior history of L5-S1 fusion. Patient failed multiple conservative management with worsening pain weakness and numbness in her lower extremity. Patient has been having difficulty performing activity of daily living. After discussing risks benefits of treatment options, patient elected proceed with surgery. Surgeon: Yessenia Malcolm Stove Fitter: Judith Jhaveri Click Yes if Unassisted: No Anesthesia Type: General Operative Notes Closure Type: primary Specimen(s): none sent Prosthetic devices, grafts, tissues, transplants, or devices: Globus revolve screws, Rise cage Applied: catheter Estimated Blood Loss (mL): 30 Blood products transfused: none Procedure in detail: Patient was seen in the preoperative area. Risks and benefits of the surgery was discussed with the patient. Informed consent was obtained from the patient and placed in the chart. Surgical site was marked. Patient was taken to the operati ve room. General anesthesia was administered. Prophylactic antibiotic was given to the patient less than 30 min before the incision was made. Patient was placed into a prone position on the Charlie table. Patient's back was then prepped and draped in the sterile fashion. Time-out was performed at this time. Using patient's previous scar incision was made over the L4-5 L5-S1 interval on the right side. Fascia was incised in line with skin incision. Patient's previously placed hardware over the L5-S1 level was identified by dissecting down to the level the hardware using a Bovie and a Garrison. The locking caps which was removed using globus screwdriver. The locking lea was then removed from the tulips of the pedicle screws using a Bebeto. The pedicle screws were then removed using the screwdriver. The screws were found to have good purchase except the left L5 screw. The Globus and MARS retractors was then placed into the wound and docked onto the L4 lamina using C-arm guidance. Using microsurgical technique and operating microscope a laminectomy facetectomy was performed by removing the L4 lamina and the L4-5 facet. The laminectomy and facetectomy was performed in order to decom press patient's cauda equina as well as the nerve roots exiting at the L4-5 level. The disc space at L4-5 level was identified next. And a total diskectomy was performed at L4-5 level. The endplates were decorticated using a rasp and shaver. The total diskectomy and decortication was performed at L4-5 level in order to to accomplish a L4-5 fusion. The local bone from the laminectomy and facetectomy was saved for local bone grafting. After the total diskectomy and decortication was completed, Viacel bone graft material was combined with local bone that was harvested earlier. At this time, a separate skin is incision was made over the iliac crest. A Jamshidi needle was inserted into the iliac crest through a separate skin incision. 5 cc of bone marrow aspiration was obtained through the separate skin incision using a Jamshidi needle from the iliac crest. The bone marrow aspiration was combined with local bone and the Viacel bone grafting material. The bone grafting material was placed into the L4-5 interbody space along with a expandable cage. The cage was expanded to its maximum height using the torque limiting screwdriver. At this time a mirror image incision was made on the left side. The fascia was incised in line with the skin incision. Patient's previously placed hardware on the left side was then removed in the same fashion as it was on the right side. The hardware was also found to have good purchase. The fusion mass on the left side was exposed by performing a left-sided hemilaminectomy at L5-S1 level. The hemilaminectomy was performed using the Kerrison rongeur to undercut the lamina at L5-S1 as well removing additional epidural scar tissue for purpose of decompressing the epidural space. The fusion mass was explored and was found have visible motion indicating pseudoarthrosis. Globus MARS retractor was inserted and docked onto the L4-5 L5-S1 posterolateral gutter. Using the power drill, posterior-lateral decortication was performed at L4-5 L5-S1 level until bleeding cortical bone was identified. The remaining bone grafting material was placed into the L4-5 L5-S1 posterior lateral gutter he order to accomplish posterolateral fusion at the L4-5 L5-S1 level. Using the double C-arm technique, pedicle screws were placed into the L4-L5 and S1 pedicles bilaterally. This was done by placing the Jamshidi needle into the pedicles, then placing the guidewires over the Jamshidi needle, and finally placing the cannulated screws over the guidewires bilaterally. After the pedicle screws were placed, 2 titanium rods was locked into the heads of the pedicle screws using locking caps and torque limiting screwdriver. Left L5 screw was increased in its diameter compared to the prior hardware in order to accommodate the loose purchase. After all the hardware was placed, and confirmed with AP and lateral C-arm imaging, the wound was then irrigated with sterile normal saline and packed with Ray-Norm gauze for 3 min to accomplish hemostasis. After the gauze was removed the deep fascia was closed with #1 Vicryl suture. The subcutaneous layer was closed with 2-0 Vicryl. The skin was closed with skin kulwant. Patient tolerated the procedure well. There were no complications. The Operation could not have been safely performed without compromising the technical result or length of the procedure, without the assistance of a skilled certified surgical first assistant. The certified surgical first assistant was medically necessary for proper positioning, retraction and manipulation of instruments, proper exposure, surgical preparation, and manipulation of tissue. Neuro monitoring was performed throughout the entire procedure. Patient signal was stable throughout entire procedure. Complications: none Post-operative Condition: stable Disposition: PACU Plan for aftercare: Admit to inpatient hospital
--- NOTE | 2024-01-03 12:55 | DI.RAD.S_ITS ---
PROCEDURE: XR LUMBAR SPINE 2-3V INDICATIONS: L4-5 TLIF TECHNIQUE: 2 views of the lumbar spine were acquired. COMPARISON: [facility], CR, XR LUMBAR SPINE 2-3V, 06/27/2023, 10:51. FINDINGS: Intraoperative fluoroscopic images of the lumbar spine demonstrates interval fusion of L4-5 with interbody spacer placement at L4-5. Redemonstration of postfusion changes of L5-S1. IMPRESSION: Intraoperative fluoroscopic support for L4-5 spinal fusion and discectomy. Redemonstration of prior fusion of L5-S1. Please see separate procedure note for further details. Dictated by: Jordan Arnold M.D. on 01/03/2024 at 13:23 Approved by: Jordan Arnold M.D. on 01/03/2024 at 13:24
[2024-01-03] MEDS: hydrOXYzine 50 MG/ML INJ 25 MG IM (13:30)
[2024-01-03] MEDS: OXYCODONE IR 5 MG TABLET PO (13:35)
[2024-01-03] MEDS: HYDROMORPHONE 1 MG INJ IV ×2 (13:39→13:48)
[2024-01-03] MEDS: LORazepam 2 MG/ML INJ 0.25 MG IV (13:48)
--- NOTE | 2024-01-03 14:09 | SUR.PHASEI ---
PACU - Patient arrived to PACU tense and writhing in bed. Patient very anxious and complaining of being cold and in pain. Dressing to back C/D/I. Bear hugger placed on patient and patient medicated by anesthesia. Patient calmed for a few minutes and then began to cry and writhe complaining about pain again. Medicated per emar. Patient had increasing agitation and anxiety. Received order for ativan from anesthesia. After ativan administration patient calmed and was able to rest. 1410 - Patient resting peacefully in bed. Awakens spontaneously and states pain is okay at a 4/10.
[2024-01-03] MEDS: LACTATED RINGERS 1,000 ML 125 ML IV (15:39)
[2024-01-03] MEDS: OXYCODONE IR 10 MG TABLET PO ×2 (17:05→20:20)
--- NOTE | 2024-01-03 18:05 | PC.NURSE ---
Dayshift: Pt arrived to ACU oriented to person and date only, pt oscillates between sleep and waking up startled/anxious. Verbalizes wanting to leave but is easily reoriented. Education given re: spinal precautions and log rolling. Despite numerous reminders, pt having difficulty remembering her precautions. Back dressing CDI, CMS intact on bilateral lower extremities. Satting 95% on 2L O2. Will continue to monitor.
[2024-01-03] MEDS: DOCUSATE 100 MG CAPSULE PO (20:19)
[2024-01-03] MEDS: SENNOSIDES 8.6 MG TABLET 17.2 MG PO (20:19)
[2024-01-03] MEDS: LORazepam 0.5 MG TABLET 0.25 MG PO (20:21)
[2024-01-03] MEDS: HYDROMORPHONE 0.5 MG INJ IV (21:20)
--- NOTE | 2024-01-03 22:57 | PC.NURSE ---
Patient is alert and oriented. Breath sounds CTA and now on RA with sat of 94%; on continous oximetry. HRR but intermittently tachy in low 100's. Denied nausea. BT hypoactive and has not yet passed flatus; abdomen is soft. Indwelling catheter is patent; urine is clear yellow. Is able to turn herself in bed. Assisted to log roll and then up out of bed with walker and 2 assists. Ambulated from bed to just outside of room door and then back to bed but tolerated fair related to pain. Was medicated with oxycodone at 2020 and after ambulation required IV Dilaudid to bring pain back down to a tolerable level; ice also applied. Dressing to back is CDI. CMS is intact bilaterally and states pre-op tingling is gone. Wearing bilateral calf SCD's. Fall risk score is high and bed alarm is activated.
[2024-01-04 00:04] VITALS: BP 126/64; PULSE 95; RESP 18; TEMP 36.8; O2SAT 93
[2024-01-04] MEDS: LACTATED RINGERS 1,000 ML 125 ML IV (00:44)
[2024-01-04] MEDS: ONDANSETRON 4 MG/2 ML INJ IV (00:44)
[2024-01-04] MEDS: HYDROMORPHONE 0.5 MG INJ IV ×2 (00:44→03:56)
[2024-01-04] MEDS: OXYCODONE IR 10 MG TABLET PO ×4 (01:41→10:49)
[2024-01-04] MEDS: ACETAMINOPHEN 325 MG TABLET 650 MG PO (01:41)
[2024-01-04] MEDS: CEFAZOLIN 2 GM/100 ML PREMIX 100 ML IV (01:41)
[2024-01-04 05:30] VITALS: BP 146/63; PULSE 100; RESP 19; TEMP 36.9; O2SAT 96
[2024-01-04 05:52] LABS: Hematocrit 34.7 % (36-46); Hemoglobin 12.2 g/dL (12.0-16.0)
[2024-01-04] MEDS: PANTOPRAZOLE DR 40 MG TABLET PO (05:57)
[2024-01-04 08:00] VITALS: BP 136/58; PULSE 93; RESP 16; TEMP 37.1; O2SAT 94
[2024-01-04] MEDS: DOCUSATE 100 MG CAPSULE PO (08:04)
[2024-01-04] MEDS: AMLODIPINE 5 MG TABLET PO (08:04)
[2024-01-04] MEDS: hydrOXYzine HCL 25 MG TABLET PO (08:04)
[2024-01-04] MEDS: ATORVASTATIN 20 MG TABLET PO (08:04)
[2024-01-04] MEDS: FLUoxetine 20 MG CAPSULE PO (08:04)
--- NOTE | 2024-01-04 09:20 | PT.IIE ---
Current Diagnoses Spinal stenosis, lumbar region with neurogenic claudication (01/03/24) Arthrodesis status (01/03/24) Surgery Performed Operation Date: 01/03/24 09:15 Actual Procedures p L4-5 TLIF, L4-S1 PSF - Yessenia Malcolm MD Surgical History (Last Updated 12/22/23 @ 09:37 by Jeimy Sparrow, RN) H/O: hysterectomy History of blepharoplasty (10/28/21) History of colonoscopy History of lumbar spinal fusion (04/14/19) Hx of cholecystectomy Hx of shoulder surgery S/P epidural steroid injection Medical History (Last Updated 12/22/23 @ 09:15 by Jeimy Sparrow, RN) Anxiety Arthritis Colitis COPD (chronic obstructive pulmonary disease) Depression GERD (gastroesophageal reflux disease) GI bleed (10/12/13) History of COVID-19 (~2022) HLD (hyperlipidemia) HTN (hypertension) Physical Therapy Inpatient Evaluation/Re-Eval M1 PT/OT-IP Prior Functional Status Start: 01/04/24 10:49 Freq: NEEDED Status: Discharge Protocol: Document 01/04/24 09:20 AB (Rec: 01/04/24 13:41 AB [id number]) Medical Review Prior Functional Status Medical History Reviewed Yes Communication able to make needs known Mobility and Gait pt stated that she was modified independent with all mobilities and ambulation using a SPC; uses a 4WW for long distance outdoor mobility Social History Household Members spouse Living Arrangements House Number of Floors (Floors) One Floor Number of Stairs To Enter/Railing? 5 steps L rail ascending Home Environment Standard Height Toilet,Walk in Shower Home Equipment Front Wheel Walker,Four Wheel Walker,Straight Cane,Raised Toilet Seat w/Armrests,Shower Seat without Backrest,Hand Held Shower,Grab Bars In Shower Additional Social History Comment pt also has a standard walker M1 PT/OT-IP Prior Functional Status Start: 01/04/24 10:50 Freq: NEEDED Status: Discharge Protocol: Document 01/04/24 10:50 [facility] (Rec: 01/04/24 11:05 [facility] [id number]) Medical Review Prior Functional Status Communication Independent Activities of Daily Living and IADL's Pt had pain but able to do ADL needs. Social History Household Members spouse Living Arrangements House Number of Floors (Floors) One Floor Number of Stairs To Enter/Railing? 5 steps with left rail going up. Home Environment Standard Height Toilet,Walk in Shower Home Equipment Front Wheel Walker,Four Wheel Walker,Straight Cane,Raised Toilet Seat w/Armrests,Shower Seat without Backrest,Hand Held Shower,Grab Bars In Shower Additional Social History Comment Pt has a supportive to assist her at home. M2 PT-IP Current Condition Start: 01/04/24 10:49 Freq: NEEDED Status: Discharge Protocol: Document 01/04/24 09:20 AB (Rec: 01/04/24 13:41 AB [id number]) Physical Therapy Current Condition Current Condition Evaluation Date 01/04/24 Treatment Diagnosis s/p L4-5 TLIF; difficulty in walking Onset Date 01/03/24 M3 PT-IP Subjective Start: 01/04/24 10:49 Freq: NEEDED Status: Discharge Protocol: Document 01/04/24 09:20 AB (Rec: 01/04/24 13:41 AB [id number]) Subjective Physical Therapy Visit Type Type Initial Evaluation Visit Start Time 09:20 Visit Stop Time 10:20 Notes pt seen for split visits: 920 am to 947 am and 1000 am to 1020 am Number of HVAC COMMERCIAL SALESPERSON Visits 0 Physical Therapy Visit Comments Patient Comments agreeable to do PT; pt stated that she wants to go home Therapy Pain Assessment Pain When Pain Assessed At Rest Pain Present Pain Present Pain Reported Location Lower Back Intensity 7 Scale Used Numeric (0 - 10) Pain Management Techniques Apply Cold,Distraction, Modification of Treatment,Re- positioning,Timing of Activity with Medications M4 PT-IP Mobility and Gait Start: 01/04/24 10:49 Freq: NEEDED Status: Discharge Protocol: Document 01/04/24 09:20 AB (Rec: 01/04/24 13:41 AB [id number]) PT-Bed Mobility Assessment Rolling Type of Rolling Log Rolling Level of Assist Standby Assistance Supine to Sit Supine to Sit Standby Assistance Sit to Supine Sit to Supine Standby Assistance PT-Transfer Assessment Sit to and From Stand Sit to and from Stand Standby Assistance,Contact Guard Assistance,1 Person Assistance,Use of Upper Extremities Equipment Transfer Assistive Device Gait Belt,Front Wheeled Walker Orthotic/Prosthetic Devices or Brace: No Transfers Transfer Destination Bed Transfer Technique ambulated Transfer Ability Level of Assist Standby Assistance,Contact Guard Assistance,1 Person Assistance,Use of Upper Extremities Comments Mobility Comments pt supine in bed and spouse in room. obtained PLOF and home set up from pt. post-op folder provided and reviewed contents. educated pt on back precautions and log roll bed mobility. pt completed log roll supine to sit SBA. sit to stand CGA and ambulated to the chair using fWW SBA to CGA . pt sat on chair. call light within reach. Pt rested. Came back for pt after 15 min. (rounds meeting). pt prefers using a 4WW. educated pt on use of a 4WW/brakes. caregiver training conducted. educated spouse on how to use safety belt and how to assist pt. spouse was able to put safety belt on pt. assisted pt with sit to stand CGA and ambulated towards the stairs using 4WW SBA to occasional CGA ~ 125 ft. pt completed up /down step using L rail min A initially with pt just holding on to L rail with one hand. educated pt on safety and use of B hands on L rail. pt completed up/down steps again holding on to L rail with B hands CGA and spouse was able to assist. pt ambulated back to her room using 4WW SBA. sat on EOB. completed log roll sit to supine SBA. completed supine to sit log roll SBA and was able to complete without cues. pt ambulated to the chair using 4WW SBA. positioned pt on the chair. call light and table placed within reach. Left pt with OT. Gait Assessment Gait Gait Assistance Required: Standby Assistance,Contact Guard Assist Distance (Feet) 125 Able to Maintain Weight Bearing Status Yes During Gait Assistive Devices Assistive Device Gait Belt,Front Wheeled Walker Orthotic/Prosthetic Devices or Brace: No Gait Deviations General Gait Pattern Antalgic,Decreased Stride Length,Decreased Feet Clearance Factors Limiting Gait Function Factors Limiting Gait Function Decreased Activity Tolerance, Decreased Strength,Limited Range of Motion,Pain,Poor Balance Stair Climbing Assessment Evaluation Level of Assist On Stairs Contact Guard Assistance, Minimal Assistance Devices Stair Climbing Assistive Devices Left Railing Technique/Endurance Stair Climbing Direction Ascend and Descend Stair Climbing Technique Step to Step Number of Steps Climbed 3 Query Text: Stair Climbing Set # Repetitions (reps) 2 PT-Balance Assessment Sitting Balance and Reactions Static Sitting Balance Ability Normal Dynamic Sitting Balance Ability Good Standing Balance and Reactions Static Standing Balance Ability Fair Dynamic Standing Balance Ability Fair Device Used FWW M5 PT-IP Objective Assessments Start: 01/04/24 10:49 Freq: NEEDED Status: Discharge Protocol: Document 01/04/24 09:20 AB (Rec: 01/04/24 13:41 AB [id number]) Orientation Orientation/Cognition Level of Alertness Alert Orientation Name,Place,Situation Language Function Ability No Deficits Noted Safety Awareness Decreased Safety Awareness Memory Description No Deficits Noted Gross Range of Motion Lower Extremity ROM Assessment Within Functional Limits Strength Lower Extremity Strength Assessment Left Impaired Hip 3+/5 Knee 4-/5 Coordination Assessment Gross Coordination Gross Coordination WNL Sensation Assessment Sensation Gross Sensation WNL Muscle Tone Muscle Tone WNL Yes M6 PT-IP Treatment Start: 01/04/24 10:49 Freq: NEEDED Status: Discharge Protocol: Document 01/04/24 09:20 AB (Rec: 01/04/24 13:41 AB [id number]) Physical Therapy Treatment Education Education Provided Precautions,Weight Bearing Status,Post-Op Packet,Safety M7 PT-IP Assessment and Plan Start: 01/04/24 10:49 Freq: NEEDED Status: Discharge Protocol: Document 01/04/24 09:20 AB (Rec: 01/04/24 13:41 AB [id number]) PT Summary Assessment and Plan Potential Rehabilitation Potential Good Status of Condition at Evaluation Stable Summary Impairments Pain,ROM,Strength,Balance, Coordination,Sensation,Tone, Cognition,Bed Mobility, Transfers,Gait,Activity Tolerance Assessment Summary pt is a 68 y/o F s/p L4-5 L5S1 TLIF POD 1. pt has back precautions. pt requiring SBA to CGA with mobility using 4WW and will have his spouse to assist him at home. caregiver training conducted and spouse was able to assist pt safely. pt may go home when medically stable. Goals Bed Mobility Goal Independent Transfer Goal Independent,Four Wheeled Walker Gait Goal Independent,Four Wheel Walker Gait Distance 300 Other Goals up/down 5 steps L rail mod I Days to Meet Goals 5 Frequency of Treatment Frequency Of Treatment Twice a Day Treatment Plan Physical Therapy Treatment Plan Bed Mobility Training,Transfer Training,Gait Training, Therapeutic Exercise,Balance Retraining,Post Op Education, Discharge Planning,Hot or Cold Pack,Neuromuscular Re-ed, Coordination Retraining,Manual Therapy Precautions Lumbar Precautions Log Roll,No Twisting,Limit Bending,Lifting Restriction of 10 lbs,Gait Belt above Incisional Area Recommendations To Nursing Amount of Assist Needed 1 Person Assist Discharge Recommendations PT Discharge Recommendations Home with Assistance Transportation Needs at Discharge Private Vehicle
--- NOTE | 2024-01-04 10:38 | OT.IP.EVAL ---
Current Diagnoses Spinal stenosis, lumbar region with neurogenic claudication (01/03/24) Arthrodesis status (01/03/24) Surgery Performed Operation Date: 01/03/24 09:15 Actual Procedures p L4-5 TLIF, L4-S1 PSF - Yessenia Malcolm MD Past Medical History (Last Updated 12/22/23 @ 09:15 by Jeimy Sparrow, RN) Anxiety Arthritis Colitis COPD (chronic obstructive pulmonary disease) Depression GERD (gastroesophageal reflux disease) GI bleed (10/12/13) History of COVID-19 (~2022) HLD (hyperlipidemia) HTN (hypertension) Surgical History (Last Updated 12/22/23 @ 09:37 by Jeimy Sparrow RN) H/O: hysterectomy History of blepharoplasty (10/28/21) History of colonoscopy History of lumbar spinal fusion (04/14/19) Hx of cholecystectomy Hx of shoulder surgery S/P epidural steroid injection Occupational Therapy Inpatient Evaluation/Re-Eval M1 PT/OT-IP Prior Functional Status Start: 01/04/24 10:50 Freq: NEEDED Status: Active Protocol: Document 01/04/24 10:50 [facility] (Rec: 01/04/24 11:05 [facility] [id number]) Medical Review Prior Functional Status Communication Independent Activities of Daily Living and IADL's Pt had pain but able to do ADL needs. Social History Household Members spouse Living Arrangements House Number of Floors (Floors) One Floor Number of Stairs To Enter/Railing? 5 steps with left rail going up. Home Environment Standard Height Toilet,Walk in Shower Home Equipment Front Wheel Walker,Four Wheel Walker,Straight Cane,Raised Toilet Seat w/Armrests,Shower Seat without Backrest,Hand Held Shower,Grab Bars In Shower Additional Social History Comment Pt has a supportive to assist her at home. M2 OT-IP Current Condition Start: 01/04/24 10:50 Freq: Status: Active Protocol: Document 01/04/24 10:50 [facility] (Rec: 01/04/24 11:05 [facility] [id number]) Occupational Therapy Current Condition Current Condition Evaluation Date 01/04/24 Treatment Diagnosis S/P L4-5 TLIF, L4-S1 PSF Diagnosis Onset Date 01/03/24 Post Operative Precautions Lumbar Precautions Log Roll,No Twisting,Limit Bending,Lifting Restriction of 10 lbs,Gait Belt above Incisional Area M3 OT- IP Subjective and Pain Start: 01/04/24 10:50 Freq: Status: Active Protocol: Document 01/04/24 10:50 [facility] (Rec: 01/04/24 11:05 [facility] [id number]) OT- Subjective Occupational Therapy Visit Type Type Initial Evaluation Visit Start Time 10:10 Visit Stop Time 10:48 Occupational Therapy Visit Comments Patient Comments Pt wanting to use the bathroom and get dressed. Patient/Caregiver Goals TO go home. OT Pain Assessment Pain When Pain Assessed During Mobility Pain Present Pain Present Pain Reported Location Lower Back Intensity 7 Scale Used Numeric (0 - 10) M4 OT- IP ADL's Start: 01/04/24 10:50 Freq: Status: Active Protocol: Document 01/04/24 10:50 [facility] (Rec: 01/04/24 11:05 [facility] [id number]) OT [id number] General Evaluation Self-Feeding Ability Independent OT ADL-Grooming Comments OT Grooming Comments Pt did prior. OT ADL-Oral Care Comments Oral Care Comments Educated best to hinge at her hips or spit into a cup to best follow her back precautions. OT ADL-Dressing General Eval Lower Body Dressing Ability Moderate Assistance Areas Needing Assistance Underpants/Brief,Socks,Shoes Comments OT Dressing Comments Able to show pt use of LB dressing equipment to best follow her back precautions. Able to issues equipment to pt . OT ADL-Toileting General Evaluation Toileting Ability Standby Assistance Comments OT Toileting Comments Able to practice best to stand and wipe after a bowel movement and uses of wet ones to increased ease for hygiene needs. Suggested pt wear pad at night to prevent from hurrying to the toilet. OT ADL-Bathing Comments OT Bathing Comments Pt states to shower at home. Educated of care for back dressing while showering. M5 OT- IP IADL's Start: 01/04/24 10:50 Freq: Status: Active Protocol: Document 01/04/24 10:50 [facility] (Rec: 01/04/24 11:05 [facility] [id number]) OT-Instrumental Activities of Daily Living Deficits IADL Deficits Identified Deficits Home Safety Awareness Awareness of Need for Assistance at Home Good Awareness Home Safety Comments Pt is a bit impulsive and has a supportive to be able to assist with all her needs. Medication Management Medication Management Caregiver Administers Money Management Money Management Caregiver Provides Assistance Meal Preparation Meal Preparation Caregiver Provides Assist Marine Operations Coordinator Marine Operations Coordinator Caregiver Provides Assist M6 OT- IP Functional Cognition Start: 01/04/24 10:50 Freq: Status: Active Protocol: Document 01/04/24 10:50 [facility] (Rec: 01/04/24 11:05 [facility] [id number]) Cognitive Factors Limiting Selfcare Function Cognitive Ability Level of Alertness Alert Patient Orientation Name,Age,Place,Situation Attention Span Ability Capable of Focused Attention, Capable of Sustained Attention Ability to Follow Commands Able to Follow One Step Commands Safety Awareness Decreased Ability to Apply Precautions,Underestimates Need for Assistance Cognitive Comments Cognitive Assessment Comments Pt needing vc for FWW safety, to be sure to push up with her hands on surfaces, to slow down and follow her back precautions. Pt has good understanding to be able to assist pr for all ADl and mobility needs. OT- Vision and Hearing OT- Hearing Assessment OT- Hearing Assessment WFL OT- Vision Assessment Visual Acuity Glasses For Reading Visual Attentiveness WFL Occular Pursuits WFL M7 OT- IP Mobility and Balance Start: 01/04/24 10:50 Freq: Status: Active Protocol: Document 01/04/24 10:50 [facility] (Rec: 01/04/24 11:05 [facility] [id number]) OT-Transfer Assessment Sit to and From Stand Sit to and from Stand Contact Guard Assistance Transfers Transfer Ability Standby Assistance,Contact Guard Assistance Technique Transfer Destination Chair,Toilet Transfer Technique Stand Step Pivot Devices Transfer Assistive Devices None,Front Wheeled Walker Comments Mobility Comments Initially coming to stand pt slight buckling and needing cues on second attempt to be sure to tighten her quads when coming to stand to the FWW. Once on the feet CGA to close SBA with FWW. Able to go over car transfer needs. OT- Balance Assessment Sitting Balance and Reactions Static Sitting Balance Ability Good Dynamic Sitting Balance Ability Good Standing Balance and Reactions Static Standing Balance Ability Fair Dynamic Standing Balance Ability Fair M8 OT- IP Objective Assessments Start: 01/04/24 10:50 Freq: Status: Active Protocol: Document 01/04/24 10:50 [facility] (Rec: 01/04/24 11:05 [facility] [id number]) OT Gross Range of Motion Upper Extremity Range of Motion Assessment Within Functional Limits OT Strength Upper Extremity Strength Assessment Within Functional Limits Hand Programmable Logic Controller Assembler Strength Hand Dominance Right M9 OT- IP Assessment and Plan Start: 01/04/24 10:50 Freq: Status: Active Protocol: Document 01/04/24 10:50 [facility] (Rec: 01/04/24 11:05 [facility] [id number]) OT Summary Assessment and Plan Potential Rehabilitation Potential Good Analytic Complexity at Evaluation Low Summary OT Impairments Pain,Balance,Functional Mobility,Dressing,Toileting, Bathing,Toilet Transfers, Shower Transfers,Activity Tolerance Progress Towards Goals Progressing Toward Goals Assessment Summary Pt low complexity and main barriers are pain, a bit impulsive and needing cues to slow down and incorporate her back precautions for ADL and mobility needs. Able to issue pt LB dressing equipment use for getting dressing. Pt also able to practice technique of standing to wip after a bowel movement successfully. Pt to go home with her to assist. Goals Grooming Goal Independent Dressing Goal Independent,Long Handled Shoe Horn,Lead Mason Tender,Sock Aid Toileting Goal Independent Bathing Goal Standby Assistance Toilet Transfer Goal Independent Shower Transfer Goal Standby Assistance Patient/Caregiver Education Goal Demonstrate Post-Op Precautions Days to Meet Goals 5 Frequency of Treatment Frequency Of Treatment Once a Day Treatment Plan OT Treatment Plan ADL Training,Functional Mobility,Patient/Family Education,Discharge Planning Discharge Recommendations OT Discharge Recommendations Home with Assistance Transportation Needs at Discharge Private Vehicle
[2024-01-04] MEDS: LOSARTAN 50 MG TABLET 100 MG PO (10:49)
--- NOTE | 2024-01-04 11:07 | CM.DANOTE ---
Initial DCP Assessment Visit Note Reviewed EMR and team rounds for status updates. Met with pt and spouse at bedside to introduce self and role, pt found to be sitting upright in the recliner, alert/oriented, and able to express her needs/concerns for discharge. She resides independently in her own home with her in [place], he will also plan to drive her home after working with PT this morning. Payor: [facility] Attending: Dr. Malcolm Pt is a 68 year old F post-op day 1 from a TLIF surgery. Pt has a hx of worsening lower back pain and lower extremity radiculopathy which has severely impacted her mobility and ADL's. She uses a cane at baseline. Pt expresses that she has all of the necessary medical equipment at home for her initial recovery needs, and has an Ortho f/u visit scheduled for wound check. Dr. Malcolm will discuss with her further OP therapy recommendations at that time. This SHIPPING AND RECEIVING WEIGHER will continue to follow for any further evolving needs, although she denies any DCP needs at this time. Discharge Planning/Care Management CM Discharge Assessment Start: 01/04/24 11:04 Freq: Status: Active Protocol: Document 01/04/24 11:05 [facility] (Rec: 01/04/24 11:07 [facility] [id number]) Discharge Planning Assessment Assigned Functional Manager DAWIT Turner Advance Directives? Yes: Health Care Directive Advance Directives on File Yes History Provided By Patient,Significant Other, Medical Record Has Patient been admitted in last 30 No days? Prior Living Arrangements House Household Members spouse Type of transporation used prior to Drives own vehicle admit Independent with ADL's Yes Is patient alert and oriented? Yes Caregiver for Another No DME Already Rented / Owned Elevated Toilet Seat,FWW / Walker,Cane Patient/Family Preference OP PT Therapy Barriers to Discharge No Discharge Plan Home Community Services Physical Therapy Transportation Arrangement Spouse Referrals Initiated None needed Whiteboard Updated in Patient Room with Yes name and ext. # of Functional Manager Review Status In Process Please Provide Date Initial DC 01/04/24 Assessment Was Performed Pre-Anesthesia Assessment Start: 12/22/23 08:33 Freq: Status: Complete Protocol: Document 12/22/23 08:33 [facility] (Rec: 12/22/23 09:38 [facility] [id number]) Pre-Anesthesia Assessment Patient Information Reviewed Via Phone Assessment Assessment Completed With Patient Primary Care Provider Tony Napoles Seen Specialist in Last 12 Months Yes Specialist Seen Emergency,Orthopedist Primary Language Yakut Preferred Language Yakut Boat Oar Maker Required No Height 167.64 cm Weight 77.02 kg Body Mass Index (BMI) 27.3 Hearing Ability Normal Visual Assist Magnifying Glass Dentition Type Teeth, Natural Present,Teeth, Missing Barriers to Learning None Other Aids No Hx Anesthesia Reactions No Hx Family Anesthesia Reaction No Hx Malignant Hyperthermia No Hx Blood Transfusions No Hx Blood Transfusion Reaction No Anesthesia Review Requested No Frame Fixer No alcohol intake former Smoking Status Current every day smoker Tobacco type cigarettes Smoking packs per day 1 Substance Use Type does not use Pain Present Pain Reported Musculoskeletal Symptoms Abnormal Gait,Back Pain, Difficulty Walking,Radiating Pain into Limb History of Falling (Recent or History of Yes ) Patient is completely paralyzed or No completely immobile Prosthesis or Orthotic Device Cane,Front Wheel Walker Mental Status Oriented to own ability Is patient on oxygen? No Does patient have FRIAS/SOB No Hx Sleep Apnea No Currently Taking a Beta Dereck No Can You Climb a Flight of Stairs Without Yes SOB Hx Chest Pain No Hx SOB No Hx Syncope or Dizziness No Anti-Coagulant Therapy No Has a Bridge Construction Inspector No Cardiac Testing No Hx Pacemaker/ICD No Pacemaker Rep Required? No Cardiac Clearance Received No Diet Type At Home Regular Dysphagia No Gastrointestinal Symptoms Reflux Bladder Pattern Frequency Urinary Catheter Present No Hx Urinary Self Catheterization No Diabetes No Patient No Lactating No Hx Drug Resistant Organism No Presence of External or Internal Medical Yes: Lumbar fusion Devices Received a COVID vaccine? Yes Received all doses? Yes Marital Status Lives With spouse Current Living Arrangements House Number of Floors (Floors) One Floor Support System Spouse Does the Patient Have Assistance After Yes Surgery Patient Discharge Plan Description Return Home Comment Pt advised overnight length of stay per surgeon Feels Safe in Current Environment Yes Been Physically Hurt or Threatened By a No Person in Current Environment Do you have thoughts of harming yourself None or others? Are you currently considering suicide? No Do you have a plan to hurt yourself or No Plan others? Do You Have Any Spiritual Beliefs That No May Affect Your HC Choices? Do You Have Any Cultural Practices That No May Affect Your HC Choices? Comment Adventism Who Can We Speak to About Patient's Care Family, friends Identifying Code for Release of Patient Declines to issue Information Health Care Proxy/Next of Kin Artis () Health Care Proxy Emergency Contact Name Artis Emergency Contact Advance Directives? Yes: Health Care Directive Advance Directives on File Yes Power of Roll Icer No PAC Instructions Durable medical equipment, Medications to take/avoid, Nasal antibiotic,No ETOH/ petroleum product on skin DOS, NPO,Pre-surgical wash,Sensory aids,Sturdy shoes/comfortable clothes,Do not bring valuables and remove jewelry
--- NOTE | 2024-01-04 11:42 | PC.NURSE ---
Discharge Note Patient A&O, VSS, RA, complaints of pain, medicated per MAR. Patient agreeable to discharge plan. Discharge packet reviewed with patient, all questions/concerns addressed. PIV discontinued. Patient able to dress self with assistance of OT and assisted to pack all belongings by . Patient reminded to forklift picker prescriptions at preferred pharmacy. Patient taken down via wheelchair to POV.
--- NOTE | 2024-01-06 10:18 | PM.DS.1 ---
History of Present Illness History of Present Illness Date Patient Seen: 01/04/24 Time Patient Seen: 10:29 Chief complaint: Back pain Narrative: Pain control. Otherwise without complaints. Discharge Providers Provider Date of admission: 01/03/24 07:33 Discharge Date: 01/04/24 Primary care physician: Tony Napoles MD Consults: 01/03/24 14:41 Consult to Occupational Therapy Evaluate & Treat Comment: Physician Instructions: Evaluate and treat Consult to Physical Therapy Evaluate & Treat Comment: Physician Instructions: Evaluate and Treat Discharge provider: Ismael Sim PA-C Summary Hospital Course Discharge Diagnosis: 1. L4-5 spinal stenosis 2. Lumbar foramen stenosis 3. History of L5-S1 fusion with instrumentation Hospital Course: 1. L4-5 posterolateral and posterior interbody fusion 2. L4-5 posterior interbody cage placement 3. L5-S1 posterior non-segmental instrumentation removal 4. L5-S1 revision laminectomy with exploration of fusion 5. L4-5, L5-S1 posterior segmental instrumentation with pedicle screw placement 6. L5-S1 posterolatearl fusion 7. [place] of bone marrow from iliac crest through a separate incision 8. Utilization of microsurgical technique and operating microscope Same procedure as scheduled: Yes Indications: Patient has been having chronic back pain and worsening lumbar radiculopathy. Patient prior history of L5-S1 fusion and has been having progressively worsening back pain and right worse than left leg pain. Patient's recent MRI shows L4-5 progressed spondylosis with central and foraminal stenosis correlating with her symptoms with prior history of L5-S1 fusion. Patient failed multiple conservative management with worsening pain weakness and numbness in her lower extremity. Patient has been having difficulty performing activity of daily living. After discussing risks benefits of treatment options, patient elected proceed with surgery. Surgeon: Yessenia Malcolm Business Objects Architect: Judith Jhaveri Click Yes if Unassisted: No Anesthesia Type: General Operative Notes Closure Type: primary Specimen(s): none sent Prosthetic devices, grafts, tissues, transplants, or devices: Globus revolve screws, Rise cage Applied: catheter Estimated Blood Loss (mL): 30 Blood products transfused: none Patient admitted to the hospital for the above-mentioned procedure. Patient consented to the same. Patient had lumbar fusion on January 03, 2024. Pain is well managed. Patient progressing as expected. Discharge home today. Exam Vital Signs (past 8 hours): Oxygen Delivery Method Room Air Oxygen Flow Rate 0 Const General: cooperative and comfortable Nutritional Appearance: average body habitus Orientation: alert Resp Effort & Inspection: normal respiratory effort and able to speak in complete sentences Objective Labs 01/04/24 05:40 PFSH Medical History (Updated 12/22/23 @ 09:15 by Jeimy Sparrow RN) History of COVID-19 (~2022) COPD (chronic obstructive pulmonary disease) Arthritis Anxiety Depression HLD (hyperlipidemia) HTN (hypertension) GERD (gastroesophageal reflux disease) GI bleed (10/12/13) Colitis Surgical History (Updated 12/22/23 @ 09:37 by Jeimy Sparrow RN) History of lumbar spinal fusion (04/14/19) History of blepharoplasty (10/28/21) S/P epidural steroid injection History of colonoscopy Hx of cholecystectomy Hx of shoulder surgery H/O: hysterectomy Social History household members: spouse Smoking Status: Current every day smoker alcohol intake: former Discharge Assessment & Plan Assessment and Plan Assessment: Progressing as expected Plan of Treatment: Limit bending, twisting, lifting Keep dressing clean and dry Multimodal pain management Discharge home today in stable condition Discharge Plan Discharge Plan Patient Disposition: Home Discharge orders & Medications Prescriptions: New polyethylene glycol 3350 17 gram Powder In Packet 17 g PO DAILY PRN (Reason: Constipation) Qty: 14 0RF oxycodone 10 mg Tablet 10 mg PO Q4-5H PRN (Reason: Pain, Severe (7-10)) Qty: 40 0RF Continued fluoxetine 20 MG tablet 20 mg PO DAILY Qty: 0 omeprazole 40 mg Capsule,Delayed Release(Dr/Ec) 40 mg PO DAILY lorazepam 0.5 mg Tablet 0.25 mg PO BID-TID PRN (Reason: Anxiety) albuterol sulfate [ProAir HFA] 90 mcg/actuation Hfa Aerosol Inhaler 2 puff INHALATION Q6H PRN (Reason: Shortness Of Breath) amlodipine 5 mg Tablet 5 mg PO DAILY losartan 100 mg Tablet 100 mg PO DAILY Discontinued acetaminophen 500 mg Tablet 1,000 mg PO Q6H PRN (Reason: Pain) Follow up/Referrals: Tony Napoles MD [Primary Care Provider] - Yessenia Malcolm MD [Physician] - (Two weeks as scheduled) Diet/Activity/Treatments Diet: Diet as Tolerated Activity: Limit bending, twisting, lifting Skin/Wound/Dressing Care Report to your healthcare provider any signs of infection, such as:: chills, fever, night sweats, increased pain, unusual drainage and unusual redness Dressing: Keep dressing clean and dry Visit Report/Discharge Packet Instructions: DI for Prescription Opioid Use, DI for Transforaminal Lumbar Interbody Fusion Stand Alone Forms: Patient Portal/API, Stroke Signs & Symptoms, Surgery Discharge Discharge Data Primary Care Provider: Tony Napoles Quality VTE Deep Vein Thrombosis/Pulmonary Embolism Present on Admission: No
== END 2024-01-04 10:45 | disposition home or self-care (01) | DRG 454 ==
PROVIDERS: Admitting Provider Orthopaedic Surgery Orthopaedic Surgery of the Spine; Family Provider Family Medicine; PCP Family Medicine; Referring Provider Orthopaedic Surgery Orthopaedic Surgery of the Spine; Visit Provider Orthopaedic Surgery Orthopaedic Surgery of the Spine
PROC: 0SG00AJ Fusion of Lumbar Vertebral Joint with Interbody Fusion Device, Posterior Approach, Anterior Column, Open Approach (ICD-10-PCS; principal; 2024-01-03 09:15)
DX: M48.061 Spinal stenosis, lumbar region without neurogenic claudication (principal); M96.0 Pseudarthrosis after fusion or arthrodesis; T84.038A Mechanical loosening of other internal prosthetic joint, initial encounter; M47.816 Spondylosis without myelopathy or radiculopathy, lumbar region; M96.1 Postlaminectomy syndrome, not elsewhere classified; F32.A Depression, unspecified; K21.9 Gastro-esophageal reflux disease without esophagitis; F41.9 Anxiety disorder, unspecified; I10 Essential (primary) hypertension; F17.210 Nicotine dependence, cigarettes, uncomplicated; J44.9 Chronic obstructive pulmonary disease, unspecified; Z98.1 Arthrodesis status
CPT/HCPCS: 36415; 72100; 76000; 85014; 85018; 97161; 97165; 97530; 97535; A9270; C1713; C1831; C9290; J0171; J0330; J0690; J1100; J1170; J1885; J2060; J2250; J2405; J2704; J3010; J3410

== ENCOUNTER → 2024-03-28 10:55 | Outpatient (CLI) | payer OTHER, SELFPAY ==
[2024-01-03 08:08] VITALS: BMI 23.6
[2024-03-28 12:58] LABS: BUN Creatinine Ratio 8.2 (6-22); Blood Urea Nitrogen 4 mg/dL (7-17); Calcium 9.6 mg/dL (8.4-10.2); Carbon Dioxide 31 mmol/L (22-32); Chloride 104 mmol/L (98-107); Estimated Glomerular Filt Rate > 60 mL/min (>60); Glucose 91 mg/dL (80-110); HEMOLYSIS < 15 (0-50); Potassium 3.3 mmol/L (3.4-5.1); Sodium 139 mmol/L (137-145)
[2024-03-28 13:15] LABS: Free T3, Triiodothyronine Free 3.77 pg/mL (2.77-5.27); Free T4, Direct Thyroxine 0.86 ng/dL (0.78-2.19)
[2024-03-28 13:29] LABS: Thyroid Stimulating Hormone 0.022 uIU/mL (0.47-4.68)
== END ==
PROVIDERS: Family Provider Family Medicine; PCP Family Medicine; Referring Provider Family Medicine; Visit Provider Family Medicine
DX: I10 Essential (primary) hypertension (principal); E87.6 Hypokalemia; R79.89 Other specified abnormal findings of blood chemistry
CPT/HCPCS: 36415; 80048; 82088; 84244; 84439; 84443; 84445; 84481

== ENCOUNTER → 2024-03-29 07:19 | Outpatient (CLI) | payer OTHER, SELFPAY ==
[2024-01-03 08:08] VITALS: BMI 23.6
--- NOTE | 2024-03-29 07:40 | DI.CT.S_ITS ---
PROCEDURE: CT LUNG LOW DOSE SCREENING INDICATIONS: Nicotine dependence, cigarettes, uncomplicated TECHNIQUE: Noncontrast 2.0-2.5 mm thick sections acquired from the pulmonary apices to the posterior costophrenic angles. 7 mm thick axial MIP, and 5 mm coronal and sagittal reformats were then acquired. For radiation dose reduction, the following was used: automated exposure control, adjustment of mA and/or kV according to patient size. COMPARISON: [facility], CT, CT LUNG LOW DOSE SCREENING, 12/26/2021, 9:42. FINDINGS: Image quality: Diagnostic. Lower Neck: No enlarged lymph nodes. Thyroid: No thyroid nodules which require sonographic follow up, per consensus guidelines. Axillae: No enlarged lymph nodes. Chest Wall: Unremarkable. Bones: Visualized osseous structures appear intact without acute fracture or focal destructive lesion. No acute compression fractures of the imaged spine. Lungs and Pleura: No pneumothorax or pleural effusions. Mild upper lobe predominant pulmonary emphysema. No focal pulmonary nodules identified. No septal thickening or nodularity. Heart: Heart size is normal. No pericardial effusion. Coronary atherosclerotic vascular calcifications are noted. Thoracic Vessels: The aorta and pulmonary arteries demonstrate normal size. Mediastinum and Sheila: No enlarged lymph nodes. Esophagus: No wall thickening. No hiatal hernia. Upper Abdomen: Visualized upper abdomen solid organs and bowel loops appear normal. Status post cholecystectomy. IMPRESSION: No suspicious pulmonary nodules. LUNG-RADS 1; continued annual screening, if eligible. Clinically Significant Non-pulmonary Findings: Coronary atherosclerosis. Dictated by: Jordan Arnold M.D. on 03/29/2024 at 9:39 Approved by: Jordan Arnold M.D. on 03/29/2024 at 9:48
== END ==
PROVIDERS: Family Provider Family Medicine; PCP Family Medicine; Referring Provider Family Medicine; Visit Provider Family Medicine
DX: Z12.2 Encounter for screening for malignant neoplasm of respiratory organs (principal); J43.2 Centrilobular emphysema; I25.10 Atherosclerotic heart disease of native coronary artery without angina pectoris; F17.210 Nicotine dependence, cigarettes, uncomplicated; Z90.49 Acquired absence of other specified parts of digestive tract
CPT/HCPCS: 71271

== ENCOUNTER → 2024-04-28 07:16 | Outpatient (CLI) | payer OTHER, SELFPAY ==
[2024-01-03 08:08] VITALS: BMI 23.6
--- NOTE | 2024-04-28 07:17 | DI.CT.S_ITS ---
PROCEDURE: CT LUMBAR SPINE WO CON INDICATIONS: LUMBAR STENOSIS W NEURO CLAUDICATION TECHNIQUE: Noncontrast 3 mm thick sections acquired from the T12 level to the sacrum. Sagittal and coronal reformats were constructed. For radiation dose reduction, the following was used: automated exposure control. COMPARISON: None. FINDINGS: Image quality: Excellent. Bones: There is prior posterior fusion at L4 through S1 levels with posterior surgical hardware and intervertebral spacer placement. Straightening of normal lumbar lordosis is seen.. No acute vertebral body compression fractures. No gross hardware loosening or failure. No suspicious lytic or blastic bony lesions. No pars defects. T12-L1: Normal appearance. L1-L2: There is loss of disc height and degenerative endplate changes. Broad-based dorsal disc osteophyte complex formation slightly more towards right side with bilateral facet arthrosis causing moderate central canal stenosis, moderate to severe right-sided neural foraminal narrowing and mild left-sided neural foraminal narrowing. L2-L3: Degenerative endplate changes, loss of disc height and vacuum disc phenomenon is seen. Broad-based disc bulge and bilateral facet arthrosis is seen. There is mild to moderate central canal stenosis, moderate bilateral neural foraminal narrowing slightly worse on the left side. L3-L4: Degenerative endplate changes are seen. Broad-based disc bulge and bilateral facet arthrosis with mild central canal stenosis and [id number] right-sided neural foraminal narrowing. L4-L5: Postsurgical changes with significant beam hardening artifacts. There is prior right mid laminectomy. Bilateral facet arthrosis is seen with mild left-sided neural foraminal narrowing. L5-S1: Postsurgical changes are seen with beam hardening artifacts. There is prior right laminectomy. Bilateral facet arthrosis is seen with left worse than right bilateral neural foraminal narrowing. Soft tissues: No gross retroperitoneal masses or hematomas. Visualized aorta is normal in caliber. IMPRESSION: 1. Post fusion changes and right laminectomy at L4 through S1 levels. Straightening of normal lumbar lordosis. No acute fracture or dislocation. No gross hardware loosening or failure. 2. Degenerative disc disease and bilateral facet arthrosis at L1-2 through L3-4 levels causing various degrees of central canal stenosis and bilateral neural foraminal narrowing. 3. Bilateral facet arthrosis also noted at L4-5 and L5-S1 levels with mild left-sided neural foraminal narrowing. No significant canal stenosis. 4. Postsurgical changes in paraspinous soft tissues without solid mass or drainable fluid collection. Dictated by: Wilder Lao M.D. on 04/29/2024 at 17:32 Approved by: Wilder Lao M.D. on 04/29/2024 at 17:40
== END ==
PROVIDERS: Family Provider Family Medicine; PCP Family Medicine; Referring Provider Orthopaedic Surgery Orthopaedic Surgery of the Spine; Visit Provider Orthopaedic Surgery Orthopaedic Surgery of the Spine
DX: M48.062 Spinal stenosis, lumbar region with neurogenic claudication (principal); M48.07 Spinal stenosis, lumbosacral region; M51.36 Other intervertebral disc degeneration, lumbar region; M47.816 Spondylosis without myelopathy or radiculopathy, lumbar region; M47.817 Spondylosis without myelopathy or radiculopathy, lumbosacral region; Z98.1 Arthrodesis status
CPT/HCPCS: 72131

== ENCOUNTER 2024-05-08 11:30 | Outpatient (RCR) | payer OTHER, SELFPAY ==
[2024-01-03 08:08] VITALS: BMI 23.6
--- NOTE | 2024-04-14 16:53 | PT.OIE ---
Current Diagnoses Stiffness of other specified joint, not elsewhere classified (04/14/24) Spinal stenosis, lumbar region without neurogenic claudication (04/14/24) Arthrodesis status (04/14/24) Past Medical History (Last Updated 12/22/23 @ 09:15 by Jeimy Sparrow RN) Anxiety Arthritis Colitis COPD (chronic obstructive pulmonary disease) Depression GERD (gastroesophageal reflux disease) GI bleed (10/12/13) History of COVID-19 (~2022) HLD (hyperlipidemia) HTN (hypertension) Past Surgical History (Last Updated 12/22/23 @ 09:37 by Jeimy Sparrow RN) H/O: hysterectomy History of blepharoplasty (10/28/21) History of colonoscopy History of lumbar spinal fusion (04/14/19) Hx of cholecystectomy Hx of shoulder surgery S/P epidural steroid injection Visit Care Team Role Provider Type Tony Napoles MD Family Provider Non-Staff Primary Care Provider Specialty: Medical Address: [address] [place] [address], [id number] Email: Yessenia Malcolm MD Attending Provider Physician Referring Provider Specialty: Orthopedics Orthopedic Surgery Address: [address] [place] [address], [address] Email: [email or web address] Physical Therapy Initial Evaluation PT-OP-A Visit Information Start: 04/14/24 14:50 Freq: Status: Active Protocol: Document 04/14/24 09:00 DCW (Rec: 04/14/24 15:04 DC [id number]) Out-Patient Physical Therapy Visit Information Visit Information Visit Type Initial Evaluation Visit Start Time 09:00 Visit Stop Time 09:45 Visit Number 1 Number of PRODUCTION WELDING SUPERVISOR Visits 0 Evaluation Information Evaluation Date 04/14/24 PT-OP-B Current Condition Start: 04/14/24 14:50 Freq: Status: Active Protocol: Document 04/14/24 09:00 DCW (Rec: 04/14/24 15:04 DC [id number]) Current Condition History of Current Condition Onset Date 01/03/24 Current Complaints L4-5 TLIF, L4-S1 PSF History of Current Condition Pt is a 68 year old female presenting to skilled therapy three months s/p L4-5 TLIF, L4 -S1 PSF. Admits back pain has been improving since her surgery, but it still hurts. Pt notes that prior to surgery , her legs were much more painful, but now it is centralized more in her low back and posterior hips. Additionally, pt notes she underwent a lumbar fusion 2-3 years ago. Pt reports she struggles most with bending over or getting down. Increased pain after walking for 20 minutes, needs to sit and take a quick break. Feels like she is unable to walk uphill. Gets momentary relief with Salonpas or her heating pad, but it is very short-term . PT-OP-C Subjective Start: 04/14/24 14:50 Freq: Status: Active Protocol: Document 04/14/24 09:00 DCW (Rec: 04/14/24 15:04 DCW [id number]) OP-PT Subjective Patient Comments Patient Comments Technically, I haven't gotten permission from Dr Malcolm to do any bending, lifting, or twisting, but come on, you can 't live your life without doing that stuff completely. Patient Reported Progress Improving Patient Questionnaires Oswestry Low Back Index Oswestry Score 15/50 = 30% Oswestry Impairment 20 to 39% Impaired (Score 20- 39) PT-OP-F Manual Assessment Start: 04/14/24 14:50 Freq: Status: Active Protocol: Document 04/14/24 09:00 DCW (Rec: 04/14/24 15:09 DCW [id number]) Manual Assessments Soft Tissue Assessment Soft Tissue Mobility Assessment Increased tone with tenderness to palpation 2/4: Pain with wincing bilateral lumbar paraspinals, superior glutes PT-OP-K Range of Motion Start: 04/14/24 14:50 Freq: Status: Active Protocol: Document 04/14/24 09:00 DCW (Rec: 04/14/24 15:09 DCW [id number]) Lumbar Spine Range of Motion Lumbar Spine Active Degrees Testing Position Standing Flexion 40 Extension 20 Lateral Flexion Left 59 Lateral Flexion Right 56 ROM Limitations Bony Restriction,Muscle Tone, Pain Comments Lateral flexion measured in cm from fingertips to floor PT-OP-M Strength Start: 04/14/24 14:50 Freq: Status: Active Protocol: Document 04/14/24 09:00 DCW (Rec: 04/14/24 15:09 DCW [id number]) Hip Strength Hip Manual Muscle Testing Right Flexion (L2) 4 Good Extension (S1) 4- Good- Abduction 3+ Fair+ Adduction 4- Good- External Rotation 4 Good Internal Rotation 4 Good Left Flexion (L2) 4 Good Extension (S1) 4 Good Abduction 3+ Fair+ Adduction 4- Good- External Rotation 4 Good Internal Rotation 4 Good Knee Strength Knee Manual Muscle Testing Right Flexion (S2) 4+ Good+ Extension (L3) 4+ Good+ Left Flexion (S2) 4+ Good+ Extension (L3) 4+ Good+ Ankle/Foot Strength Ankle and Foot Manual Muscle Testing Right Dorsiflexion (L4) 4+ Good+ Left Dorsiflexion (L4) 4+ Good+ PT-OP-Q Treatments Start: 04/14/24 14:50 Freq: Status: Active Protocol: Document 04/14/24 09:00 DC (Rec: 04/14/24 15:04 [facility] [id number]) Therapeutic Exercises Supine Exercises LTR Supine Exercise Name LTR KtC Supine Exercise Name Single KtC Side bilateral Marching Supine Exercise Name PPT /c TrA bracing - Marching Comments HEP Pelvic Tilt Supine Exercise Name PPT /c TrA bracing Comments HEP Sitting Exercises Piriformis Sitting Exercise Name Seated figure-4 Side bilateral PT-OP-T Assessment and Plan Start: 04/14/24 14:50 Freq: Status: Active Protocol: Document 04/14/24 09:00 DCW (Rec: 04/14/24 15:14 [facility] [id number]) Physical Therapy Assessment Rehab Potential Rehabilitation Potential Good Evaluation Complexity Number of Personal Factors/Comorbidities 1-2 Number of Body Systems Impaired 4 or More Clinical Presentation at Evaluation Stable Impairments Impairments Activity Tolerance,Functional Activities,Functional Mobility ,Pain,ROM,Soft Tissue Mobility ,Strength,Tone Goals Three Impairment Pt unable to walk longer than 20 minutes without increased back pain Mapping Pilot Goal (LTG) Pt to report ability to ambulate >40 minutes in order to allow her to return to prior functional levels. LTG Duration 06/14/24 Two Impairment Pt exhibits B hip weakness, especially B abd (3+), B abd ( 4-), L ext (4-) Skilled Nursing Goal (LTG) Pt to improve hip MMT to at least 4/5 in all tested planes in order to improve ability to perform falls recovery or get off ground after floor activities. LTG Duration 06/14/24 One Impairment Pt does not have an appropriate home exercise program Short Term Goal (STG) Pt to be independent and compliant with an appropriate HEP STG Duration 05/14/24 Assessment Summary Assessment Pt presents with signs and symptoms consistent with referring diagnosis. Pt three months s/p L4-5 TLIF, L4-S1 PSF, still struggling with overall pain, mobility, and return to prior functional levels. Pt displays increased soft tissue tone/tightness across low back and hips, as well as core and hip weakness. Decreased activity tolerance limiting her ability to get out and exercise. Pt should benefit from skilled therapy focusing on core/hip strengthening, gentle lumbar stretching, increasing activity tolerance, and increasing functional mobility . Physical Therapy Plan Frequency and Duration Frequency of Treatment 2x/Week Plan of Care Start Date 04/14/24 Plan of Care End Date 06/14/24 Therapeutic Interventions Therapeutic Interventions Gait Training,Home Exercise Program,Joint Mobilizations, Manual Therapy,Neuromuscular Re-education,Patient/Caregiver Education,Self-Care/Home Management,Soft Tissue Mobilization,Therapeutic Activities,Therapeutic Exercises Modalities Cold Pack/Ice Massage,Electric Stimulation,Hot Packs, Ultrasound Next Visit Focus/Plan Next Note Type Treatment Note Next Visit Plan Core/hip strengthening, gentle back mobility, STM, activity tolerance
--- NOTE | 2024-04-14 16:53 | PT.OPPOC ---
Physical, Occupational & Speech Therapy At [facility] Current Diagnoses Stiffness of other specified joint, not elsewhere classified (04/14/24) Spinal stenosis, lumbar region without neurogenic claudication (04/14/24) Arthrodesis status (04/14/24) Visit Care Team Role Provider Type oTny Napoles MD Family Provider Non-Staff Primary Care Provider Specialty: Medical Address: [address] [place] [address], [place], [address] Email: Yessenia Malcolm MD Attending Provider Physician Referring Provider Specialty: Orthopedics Orthopedic Surgery Address: [address] [place] [address], [place], [address] Email: [email or web address] Plan Of Care PT-OP-B Current Condition Start: 04/14/24 14:50 Freq: Status: Active Protocol: Document 04/14/24 09:00 DCW (Rec: 04/14/24 15:04 DCW [id number]) Current Condition History of Current Condition Onset Date 01/03/24 Current Complaints L4-5 TLIF, L4-S1 PSF History of Current Condition Pt is a 68 year old female presenting to skilled therapy three months s/p L4-5 TLIF, L4 -S1 PSF. Admits back pain has been improving since her surgery, but it still hurts. Pt notes that prior to surgery , her legs were much more painful, but now it is centralized more in her low back and posterior hips. Additionally, pt notes she underwent a lumbar fusion 2-3 years ago. Pt reports she struggles most with bending over or getting down. Increased pain after walking for 20 minutes, needs to sit and take a quick break. Feels like she is unable to walk uphill. Gets momentary relief with Salonpas or her heating pad, but it is very short-term . PT-OP-T Assessment and Plan Start: 04/14/24 14:50 Freq: Status: Active Protocol: Document 04/14/24 09:00 DCW (Rec: 04/14/24 15:14 DCW [id number]) Physical Therapy Assessment Rehab Potential Rehabilitation Potential Good Evaluation Complexity Number of Personal Factors/Comorbidities 1-2 Number of Body Systems Impaired 4 or More Clinical Presentation at Evaluation Stable Impairments Impairments Activity Tolerance,Functional Activities,Functional Mobility ,Pain,ROM,Soft Tissue Mobility ,Strength,Tone Goals Three Impairment Pt unable to walk longer than 20 minutes without increased back pain Residential Goal (LTG) Pt to report ability to ambulate >40 minutes in order to allow her to return to prior functional levels. LTG Duration 06/14/24 Two Impairment Pt exhibits B hip weakness, especially B abd (3+), B abd ( 4-), L ext (4-) Meat Slicer Goal (LTG) Pt to improve hip MMT to at least 4/5 in all tested planes in order to improve ability to perform falls recovery or get off ground after floor activities. LTG Duration 06/14/24 One Impairment Pt does not have an appropriate home exercise program Short Term Goal (STG) Pt to be independent and compliant with an appropriate HEP STG Duration 05/14/24 Assessment Summary Assessment Pt presents with signs and symptoms consistent with referring diagnosis. Pt three months s/p L4-5 TLIF, L4-S1 PSF, still struggling with overall pain, mobility, and return to prior functional levels. Pt displays increased soft tissue tone/tightness across low back and hips, as well as core and hip weakness. Decreased activity tolerance limiting her ability to get out and exercise. Pt should benefit from skilled therapy focusing on core/hip strengthening, gentle lumbar stretching, increasing activity tolerance, and increasing functional mobility . Physical Therapy Plan Frequency and Duration Frequency of Treatment 2x/Week Plan of Care Start Date 04/14/24 Plan of Care End Date 06/14/24 Therapeutic Interventions Therapeutic Interventions Gait Training,Home Exercise Program,Joint Mobilizations, Manual Therapy,Neuromuscular Re-education,Patient/Caregiver Education,Self-Care/Home Management,Soft Tissue Mobilization,Therapeutic Activities,Therapeutic Exercises Modalities Cold Pack/Ice Massage,Electric Stimulation,Hot Packs, Ultrasound Next Visit Focus/Plan Next Note Type Treatment Note Next Visit Plan Core/hip strengthening, gentle back mobility, STM, activity tolerance Plan of Care Dates Plan of Care Start Date 04/14/24 Plan of Care End Date 06/14/24 Electronically Signed by: Kenny Espitia, PT 04/14/24 3156 If you are in agreement with this Plan of Care, please return a signed and dated copy. I have reviewed this Plan of Care and certify that the skilled therapy services above are required to meet the patient?s needs. Physician Signature Date Printed Name and Credentials Clinical Instructor Signature Printed Name and Credentials
--- NOTE | 2024-04-17 16:54 | PT.OTN ---
Current Diagnoses Stiffness of other specified joint, not elsewhere classified (04/17/24) Spinal stenosis, lumbar region without neurogenic claudication (04/17/24) Arthrodesis status (04/17/24) Physical Therapy Treatment Note PT-OP-A Visit Information Start: 04/14/24 14:50 Freq: Status: Active Protocol: Document 04/17/24 12:00 AB (Rec: 04/17/24 13:49 AB [id number]) Out-Patient Physical Therapy Visit Information Visit Information Visit Type Treatment Note Visit Start Time 13:01 Visit Stop Time 13:46 Visit Number 2 Number of MARKETING AND COMMUNICATIONS OFFICER Visits 1 Evaluation Information Evaluation Date 04/14/24 PT-OP-B Current Condition Start: 04/14/24 14:50 Freq: Status: Active Protocol: Document 04/14/24 09:00 DCW (Rec: 04/14/24 15:04 DCW [id number]) Current Condition History of Current Condition Onset Date 01/03/24 Current Complaints L4-5 TLIF, L4-S1 PSF History of Current Condition Pt is a 68 year old female presenting to skilled therapy three months s/p L4-5 TLIF, L4 -S1 PSF. Admits back pain has been improving since her surgery, but it still hurts. Pt notes that prior to surgery , her legs were much more painful, but now it is centralized more in her low back and posterior hips. Additionally, pt notes she underwent a lumbar fusion 2-3 years ago. Pt reports she struggles most with bending over or getting down. Increased pain after walking for 20 minutes, needs to sit and take a quick break. Feels like she is unable to walk uphill. Gets momentary relief with Salonpas or her heating pad, but it is very short-term . PT-OP-C Subjective Start: 04/14/24 14:50 Freq: Status: Active Protocol: Document 04/17/24 12:00 AB (Rec: 04/17/24 13:49 AB [id number]) OP-PT Subjective Patient Comments Patient Comments Patient reports today is the best day she has had since the surgery. Patient rates pain 3-4/10 low back. Patient reports she is on the wait list. Sit to stand with one UE use and and reports of increased back pain. PT-OP-F Manual Assessment Start: 04/14/24 14:50 Freq: Status: Active Protocol: Document 04/14/24 09:00 DCW (Rec: 04/14/24 15:09 DCW [id number]) Manual Assessments Soft Tissue Assessment Soft Tissue Mobility Assessment Increased tone with tenderness to palpation 2/4: Pain with wincing bilateral lumbar paraspinals, superior glutes PT-OP-K Range of Motion Start: 04/14/24 14:50 Freq: Status: Active Protocol: Document 04/14/24 09:00 DCW (Rec: 04/14/24 15:09 DCW [id number]) Lumbar Spine Range of Motion Lumbar Spine Active Degrees Testing Position Standing Flexion 40 Extension 20 Lateral Flexion Left 59 Lateral Flexion Right 56 ROM Limitations Bony Restriction,Muscle Tone, Pain Comments Lateral flexion measured in cm from fingertips to floor PT-OP-M Strength Start: 04/14/24 14:50 Freq: Status: Active Protocol: Document 04/14/24 09:00 DCW (Rec: 04/14/24 15:09 DCW [id number]) Hip Strength Hip Manual Muscle Testing Right Flexion (L2) 4 Good Extension (S1) 4- Good- Abduction 3+ Fair+ Adduction 4- Good- External Rotation 4 Good Internal Rotation 4 Good Left Flexion (L2) 4 Good Extension (S1) 4 Good Abduction 3+ Fair+ Adduction 4- Good- External Rotation 4 Good Internal Rotation 4 Good Knee Strength Knee Manual Muscle Testing Right Flexion (S2) 4+ Good+ Extension (L3) 4+ Good+ Left Flexion (S2) 4+ Good+ Extension (L3) 4+ Good+ Ankle/Foot Strength Ankle and Foot Manual Muscle Testing Right Dorsiflexion (L4) 4+ Good+ Left Dorsiflexion (L4) 4+ Good+ PT-OP-Q Treatments Start: 04/14/24 14:50 Freq: Status: Active Protocol: Document 04/17/24 12:00 AB (Rec: 04/17/24 13:49 AB [id number]) Therapeutic Exercises Supine Exercises Breathing from diaphragm in modified restorative pose Supine Exercise Name HEP Comments verbal and tactile cues for breathing from diaphragm piriformis stretch Reps/Minutes right LE Comments minimally anthony Sitting Exercises seated hip abduction Side bilateral Resistance level 3 huslia green band Reps/Minutes one minute X 1 and X 15 X2 without hold Piriformis Sitting Exercise Name Seated figure-4 Side right Reps/Minutes X1 Comments not anthony Standing Exercises Paloff press Standing Exercise Name HEP Side bilateral Resistance level one band Reps/Minutes X10 each direction sit to stand with band Resistance level 3 green band Reps/Minutes X1 Comments VC to hip hinge not anthony Therapeutic Activity Therapeutic Activity log roll Name VC to scoot back while seated prior to transition to sidelying. sit to stand Name HEP photo added for remider of hip hinge Reps/Minutes X4 Comments Patient ed mechancis of sit to stand and self tactile cues for hip hinge Manual Therapy Treatment Consent Patient gave verbal consent for manual Yes treatment Soft Tissue Mobilization LS area Body Location bilateral scar tissue and Lumbar paraspinals Mobilization Type Cross-Friction,Sustained Pressure PT-OP-T Assessment and Plan Start: 04/14/24 14:50 Freq: Status: Active Protocol: Document 04/17/24 12:00 AB (Rec: 04/17/24 13:49 AB [id number]) Physical Therapy Assessment Goals Three Impairment Pt unable to walk longer than 20 minutes without increased back pain Longterm Goal (LTG) Pt to report ability to ambulate >40 minutes in order to allow her to return to prior functional levels. LTG Duration 06/14/24 Two Impairment Pt exhibits B hip weakness, especially B abd (3+), B abd ( 4-), L ext (4-) Longterm Goal (LTG) Pt to improve hip MMT to at least 4/5 in all tested planes in order to improve ability to perform falls recovery or get off ground after floor activities. LTG Duration 06/14/24 One Impairment Pt does not have an appropriate home exercise program Short Term Goal (STG) Pt to be independent and compliant with an appropriate HEP STG Duration 05/14/24 Assessment Summary Assessment Nora rates pain 5/10 Lumbar area end of session. Decreased anthony to piriformis stretch this session. Also, noted reports of increased pain post manual therapy during log roll to transfer back to seated position. Good return demonstration with hip hinge with reports of decreased pain with sit to stand throughout session when hip hinging. Physical Therapy Plan Frequency and Duration Frequency of Treatment 2x/Week Plan of Care Start Date 04/14/24 Plan of Care End Date 06/14/24 Next Visit Focus/Plan Next Note Type Treatment Note Next Visit Plan Core/hip strengthening, gentle back mobility, STM, activity tolerance Trial of exercise prior to STM
--- NOTE | 2024-04-26 15:12 | PT.OTN ---
Current Diagnoses Stiffness of other specified joint, not elsewhere classified (04/26/24) Spinal stenosis, lumbar region without neurogenic claudication (04/26/24) Arthrodesis status (04/26/24) Physical Therapy Treatment Note PT-OP-A Visit Information Start: 04/14/24 14:50 Freq: Status: Active Protocol: Document 04/26/24 13:46 NBM (Rec: 04/26/24 15:12 NBM [id number]) Out-Patient Physical Therapy Visit Information Visit Information Visit Type Treatment Note Visit Start Time 13:43 Visit Stop Time 14:34 Visit Number 3 Number of CREEL SELECTOR Visits 2 PT-OP-B Current Condition Start: 04/14/24 14:50 Freq: Status: Active Protocol: Document 04/14/24 09:00 DCW (Rec: 04/14/24 15:04 DCW [id number]) Current Condition History of Current Condition Onset Date 01/03/24 Current Complaints L4-5 TLIF, L4-S1 PSF History of Current Condition Pt is a 68 year old female presenting to skilled therapy three months s/p L4-5 TLIF, L4 -S1 PSF. Admits back pain has been improving since her surgery, but it still hurts. Pt notes that prior to surgery , her legs were much more painful, but now it is centralized more in her low back and posterior hips. Additionally, pt notes she underwent a lumbar fusion 2-3 years ago. Pt reports she struggles most with bending over or getting down. Increased pain after walking for 20 minutes, needs to sit and take a quick break. Feels like she is unable to walk uphill. Gets momentary relief with Salonpas or her heating pad, but it is very short-term . PT-OP-C Subjective Start: 04/14/24 14:50 Freq: Status: Active Protocol: Document 04/26/24 13:46 NBM (Rec: 04/26/24 15:12 NBM [id number]) OP-PT Subjective Patient Comments Patient Comments Nora reports currently 4/10 pain and she was very sore after last visit. She's been carrying stress as has memory loss due to stroke and she does all chores and housework so it's difficult to follow precautions. Dr. Malcolm ordered CT scan on 04/28 for possible bone fragment that may be causing pain and not showing up on Xray. PT-OP-F Manual Assessment Start: 04/14/24 14:50 Freq: Status: Active Protocol: Document 04/14/24 09:00 DCW (Rec: 04/14/24 15:09 DCW [id number]) Manual Assessments Soft Tissue Assessment Soft Tissue Mobility Assessment Increased tone with tenderness to palpation 2/4: Pain with wincing bilateral lumbar paraspinals, superior glutes PT-OP-K Range of Motion Start: 04/14/24 14:50 Freq: Status: Active Protocol: Document 04/14/24 09:00 DCW (Rec: 04/14/24 15:09 DCW [id number]) Lumbar Spine Range of Motion Lumbar Spine Active Degrees Testing Position Standing Flexion 40 Extension 20 Lateral Flexion Left 59 Lateral Flexion Right 56 ROM Limitations Bony Restriction,Muscle Tone, Pain Comments Lateral flexion measured in cm from fingertips to floor PT-OP-M Strength Start: 04/14/24 14:50 Freq: Status: Active Protocol: Document 04/14/24 09:00 DCW (Rec: 04/14/24 15:09 DCW [id number]) Hip Strength Hip Manual Muscle Testing Right Flexion (L2) 4 Good Extension (S1) 4- Good- Abduction 3+ Fair+ Adduction 4- Good- External Rotation 4 Good Internal Rotation 4 Good Left Flexion (L2) 4 Good Extension (S1) 4 Good Abduction 3+ Fair+ Adduction 4- Good- External Rotation 4 Good Internal Rotation 4 Good Knee Strength Knee Manual Muscle Testing Right Flexion (S2) 4+ Good+ Extension (L3) 4+ Good+ Left Flexion (S2) 4+ Good+ Extension (L3) 4+ Good+ Ankle/Foot Strength Ankle and Foot Manual Muscle Testing Right Dorsiflexion (L4) 4+ Good+ Left Dorsiflexion (L4) 4+ Good+ PT-OP-Q Treatments Start: 04/14/24 14:50 Freq: Status: Active Protocol: Document 04/26/24 13:46 NBM (Rec: 04/26/24 15:12 NBM [id number]) Therapeutic Exercises Supine Exercises Breathing from diaphragm in modified restorative pose Supine Exercise Name HEP - verbal review Comments verbal and tactile cues for breathing from diaphragm LTR Supine Exercise Name LTR Comments verbal review w/ TrA and breathwork emphasis Pelvic Tilt Supine Exercise Name HEP review TrA: 1. /c PPT and breath 2. /c BKFO 3. marching Reps/Minutes self-monitoring TrA medial to ASIS Comments cues for gentle TrA activation , breathwork Standing Exercises Paloff press Standing Exercise Name HEP review Side bilateral Resistance level one band Reps/Minutes X10 each direction - challenging Comments cues for correct execution, scap setting, core and breath. Therapeutic Activity Therapeutic Activity log roll Name simulate in/out bed on R Reps/Minutes x5 Comments I/s in activating TrA and breathing out with log roll in /out of bed; HO given. Self-Care/Home Management Treatment Education Patient Education Body Mechanics,Home Exercise Program,Joint Protection,Pain Management,Posture,Safety Caregiver Education -Review of diaphgragmatic breathing for pain and stress management and improving muscle tone. -Edu to pt w/ visual aids re: TrA anatomy and interrelationship w/ diaphgram and pelvic floor, and importance of not breathholding to maintain intra-abdominal pressure. -I/s pt in self-monitoring TrA medial to ASIS. -Core HEP review w/ TrA and breathwork focus. Added to HEP : BKFO - Core progression HO given (PPT w/ TrA, BKFO, marching, (verbal i/s for LTR w/ TrA and breathwork). -Verbal and visual instruction in ADLs to point feet towards work instead of twisting, avoid reaching/bending with reminder for precautions w/ bending, lifting, twisting - HO for ADLs Do's/Dont's given. PT-OP-T Assessment and Plan Start: 04/14/24 14:50 Freq: Status: Active Protocol: Document 04/26/24 13:46 [facility] (Rec: 04/26/24 15:12 [facility] [id number]) Physical Therapy Assessment Goals Three Impairment Pt unable to walk longer than 20 minutes without increased back pain Inspector Returned Materials Goal (LTG) Pt to report ability to ambulate >40 minutes in order to allow her to return to prior functional levels. LTG Duration 06/14/24 Two Impairment Pt exhibits B hip weakness, especially B abd (3+), B abd ( 4-), L ext (4-) Inspector Returned Materials Goal (LTG) Pt to improve hip MMT to at least 4/5 in all tested planes in order to improve ability to perform falls recovery or get off ground after floor activities. LTG Duration 06/14/24 One Impairment Pt does not have an appropriate home exercise program Short Term Goal (STG) Pt to be independent and compliant with an appropriate HEP STG Duration 05/14/24 Assessment Summary Assessment Nora presents today with 4/10 low back pain L>R which improves to 2-3/10 end of session. Treatment focus on core strengthening HEP review, education, and log roll. Nora is instructed in self- monitoring Transverse abdominis m. medial to ASIS and educated on relationship to breath, and she demonstrates improved TrA activation and self-awareness for breathholding w/ exercises and slower pacing. Pt given supine core progression HO ( PPT, BKFO, marching), HO for ADLs Do/Don't w/ emphasis to face toes towards work to avoid twisting, and HO for log roll w/ cues for engaging TrA and breathing out with movement. Paloff press is challenging and pt struggles to maintain TrA activation without breathholding or UT overactivation. Physical Therapy Plan Frequency and Duration Frequency of Treatment 2x/Week Plan of Care Start Date 04/14/24 Plan of Care End Date 06/14/24 Therapeutic Interventions Therapeutic Interventions Gait Training,Home Exercise Program,Joint Mobilizations, Manual Therapy,Neuromuscular Re-education,Patient/Caregiver Education,Self-Care/Home Management,Soft Tissue Mobilization,Therapeutic Activities,Therapeutic Exercises Modalities Cold Pack/Ice Massage,Electric Stimulation,Hot Packs, Ultrasound Next Visit Focus/Plan Next Note Type Treatment Note Next Visit Plan Core/hip strengthening, gentle back mobility, STM, activity tolerance Trial of exercise prior to STM
--- NOTE | 2024-05-08 12:10 | PT.OTN ---
Current Diagnoses Stiffness of other specified joint, not elsewhere classified (05/08/24) Spinal stenosis, lumbar region without neurogenic claudication (05/08/24) Arthrodesis status (05/08/24) Physical Therapy Treatment Note PT-OP-A Visit Information Start: 04/14/24 14:50 Freq: Status: Active Protocol: Document 05/08/24 11:22 SP (Rec: 05/08/24 12:30 SP [id number]) Out-Patient Physical Therapy Visit Information Visit Information Visit Type Treatment Note Visit Start Time 11:22 Visit Stop Time 12:10 Visit Number 4 Number of VIDEO PRESENTATION OPERATOR Visits 3 Evaluation Information Evaluation Date 04/14/24 PT-OP-B Current Condition Start: 04/14/24 14:50 Freq: Status: Active Protocol: Document 04/14/24 09:00 DCW (Rec: 04/14/24 15:04 DCW [id number]) Current Condition History of Current Condition Onset Date 01/03/24 Current Complaints L4-5 TLIF, L4-S1 PSF History of Current Condition Pt is a 68 year old female presenting to skilled therapy three months s/p L4-5 TLIF, L4 -S1 PSF. Admits back pain has been improving since her surgery, but it still hurts. Pt notes that prior to surgery , her legs were much more painful, but now it is centralized more in her low back and posterior hips. Additionally, pt notes she underwent a lumbar fusion 2-3 years ago. Pt reports she struggles most with bending over or getting down. Increased pain after walking for 20 minutes, needs to sit and take a quick break. Feels like she is unable to walk uphill. Gets momentary relief with Salonpas or her heating pad, but it is very short-term . PT-OP-C Subjective Start: 04/14/24 14:50 Freq: Status: Active Protocol: Document 05/08/24 11:22 SP (Rec: 05/08/24 12:30 SP [id number]) OP-PT Subjective Patient Comments Patient Comments Pt reports working on her core last tx helped with her pain. Did last long though. Pt reports does have dizziness with transitions of positions so needs stay still for bit. PT-OP-F Manual Assessment Start: 04/14/24 14:50 Freq: Status: Active Protocol: Document 04/14/24 09:00 DCW (Rec: 04/14/24 15:09 DCW [id number]) Manual Assessments Soft Tissue Assessment Soft Tissue Mobility Assessment Increased tone with tenderness to palpation 2/4: Pain with wincing bilateral lumbar paraspinals, superior glutes PT-OP-K Range of Motion Start: 04/14/24 14:50 Freq: Status: Active Protocol: Document 04/14/24 09:00 DCW (Rec: 04/14/24 15:09 DCW [id number]) Lumbar Spine Range of Motion Lumbar Spine Active Degrees Testing Position Standing Flexion 40 Extension 20 Lateral Flexion Left 59 Lateral Flexion Right 56 ROM Limitations Bony Restriction,Muscle Tone, Pain Comments Lateral flexion measured in cm from fingertips to floor PT-OP-M Strength Start: 04/14/24 14:50 Freq: Status: Active Protocol: Document 04/14/24 09:00 DCW (Rec: 04/14/24 15:09 DCW [id number]) Hip Strength Hip Manual Muscle Testing Right Flexion (L2) 4 Good Extension (S1) 4- Good- Abduction 3+ Fair+ Adduction 4- Good- External Rotation 4 Good Internal Rotation 4 Good Left Flexion (L2) 4 Good Extension (S1) 4 Good Abduction 3+ Fair+ Adduction 4- Good- External Rotation 4 Good Internal Rotation 4 Good Knee Strength Knee Manual Muscle Testing Right Flexion (S2) 4+ Good+ Extension (L3) 4+ Good+ Left Flexion (S2) 4+ Good+ Extension (L3) 4+ Good+ Ankle/Foot Strength Ankle and Foot Manual Muscle Testing Right Dorsiflexion (L4) 4+ Good+ Left Dorsiflexion (L4) 4+ Good+ PT-OP-Q Treatments Start: 04/14/24 14:50 Freq: Status: Active Protocol: Document 05/08/24 11:22 SP (Rec: 05/08/24 12:30 SP [id number]) Therapeutic Exercises Supine Exercises Breathing from diaphragm in modified restorative pose Supine Exercise Name HEP - verbal review Comments verbal and tactile cues for breathing from diaphragm LTR Supine Exercise Name LTR Equipment Used noted muscle quivering Reps/Minutes x10 Comments verbal review w/ TrA and breathwork emphasis, painfree range KtC Supine Exercise Name pt discontinued due to causing pain in back (PPT) Pelvic Tilt Supine Exercise Name HEP review TrA: 1. /c PPT& lateral tilt /c breath 2. /c BKFO 3. marching Side bilateral Equipment Used noted muscle quivering- painfree range Reps/Minutes x14 alternating Comments cues for gentle TrA activation , PPT&[employer] DISPATCHER, count support breathwork, slow pace Sidelying Exercises pevic tilt Sidelying Exercise Name fwd, bwd, lateral Side bilateral Reps/Minutes 10 reps Comments post manual, cued slow pacing and painfree range Therapeutic Activity Therapeutic Activity Gait Name /c TA & neutral pelvis Comments SPC, cued TA with slower pacing allow pelvic mobility stair mtg Name /c TA & Neutral Pelvis Comments 1 HR, /c and /s SPC- ed TA& [employer] DISPATCHER receiprocal stepping, cued slower pacing, level pelvis to allow spinal stability but still allow pelvic mobility re - education. Improved form and pain reduction with increased confidence to do stairs more normal patterning. log roll Name simulate in/out bed on R Reps/Minutes x5 Comments I/s in activating TrA and breathing out with log roll in /out of bed; HO given. sit to stand Name reviewed Reps/Minutes X4- mesh chair Comments ed mechanics TA hip hinge coming to standing, slow descent Manual Therapy Treatment Soft Tissue Mobilization LS area Body Location B ES, paraspinals, QL L>R tightness&sensitive Mobilization Type Rolling,Sustained Pressure, Other Comments gentle STMs, MWM breath PT-OP-T Assessment and Plan Start: 04/14/24 14:50 Freq: Status: Active Protocol: Document 05/08/24 11:22 SP (Rec: 05/08/24 12:30 SP [id number]) Physical Therapy Assessment Goals Three Impairment Pt unable to walk longer than 20 minutes without increased back pain Fci Goal (LTG) Pt to report ability to ambulate >40 minutes in order to allow her to return to prior functional levels. LTG Duration 06/14/24 Two Impairment Pt exhibits B hip weakness, especially B abd (3+), B abd ( 4-), L ext (4-) Fci Goal (LTG) Pt to improve hip MMT to at least 4/5 in all tested planes in order to improve ability to perform falls recovery or get off ground after floor activities. LTG Duration 06/14/24 One Impairment Pt does not have an appropriate home exercise program Short Term Goal (STG) Pt to be independent and compliant with an appropriate HEP STG Duration 05/14/24 Assessment Summary Assessment Pt improved understanding of TAb support and neutral pelvis during all ther ex in painfree range, incorporation alignment and engagement during transfers, receiprocal stair mgt and walking to allow functional mobility but still slow enough pacing to allow spinal stabilization. Improved form and pain reduction in LB with increased confidence TA & spinal stability to do stairs receiprocal patterning more normal. Physical Therapy Plan Frequency and Duration Frequency of Treatment 2x/Week Plan of Care Start Date 04/14/24 Plan of Care End Date 06/14/24 Therapeutic Interventions Therapeutic Interventions Gait Training,Home Exercise Program,Joint Mobilizations, Manual Therapy,Neuromuscular Re-education,Patient/Caregiver Education,Self-Care/Home Management,Soft Tissue Mobilization,Therapeutic Activities,Therapeutic Exercises Modalities Cold Pack/Ice Massage,Electric Stimulation,Hot Packs, Ultrasound Next Visit Focus/Plan Next Note Type Treatment Note Next Visit Plan Check response to manual. recheck HEP and TA trng. POC: Core/hip strengthening, gentle back mobility, STM, activity tolerance Trial of exercise prior to STM
--- NOTE | 2024-09-25 12:11 | PT.OPDS ---
Current Diagnoses Stiffness of other specified joint, not elsewhere classified (05/08/24) Spinal stenosis, lumbar region without neurogenic claudication (05/08/24) Arthrodesis status (05/08/24) Visit Care Team Role Provider Type Tony Napoles MD Family Provider Non-Staff Primary Care Provider Specialty: Medical Address: [address] [place] [address], [id number] Email: Yessenia Malcolm MD Attending Provider Physician Referring Provider Specialty: Orthopedics Orthopedic Surgery Address: [address] [place] [address], [id number] Email: [email or web address] Visit Number Visit Number 4 Discharge Summary PT-OP-B Current Condition Start: 04/14/24 14:50 Freq: Status: Active Protocol: Document 04/14/24 09:00 DCW (Rec: 04/14/24 15:04 DCW [id number]) Current Condition History of Current Condition Onset Date 01/03/24 Current Complaints L4-5 TLIF, L4-S1 PSF History of Current Condition Pt is a 68 year old female presenting to skilled therapy three months s/p L4-5 TLIF, L4 -S1 PSF. Admits back pain has been improving since her surgery, but it still hurts. Pt notes that prior to surgery , her legs were much more painful, but now it is centralized more in her low back and posterior hips. Additionally, pt notes she underwent a lumbar fusion 2-3 years ago. Pt reports she struggles most with bending over or getting down. Increased pain after walking for 20 minutes, needs to sit and take a quick break. Feels like she is unable to walk uphill. Gets momentary relief with Salonpas or her heating pad, but it is very short-term . PT-OP-C Subjective Start: 04/14/24 14:50 Freq: Status: Active Protocol: Document 05/08/24 11:22 SP (Rec: 05/08/24 12:30 SP [id number]) OP-PT Subjective Patient Comments Patient Comments Pt reports working on her core last tx helped with her pain. Did last long though. Pt reports does have dizziness with transitions of positions so needs stay still for bit. PT-OP-F Manual Assessment Start: 04/14/24 14:50 Freq: Status: Active Protocol: Document 04/14/24 09:00 DCW (Rec: 04/14/24 15:09 DCW [id number]) Manual Assessments Soft Tissue Assessment Soft Tissue Mobility Assessment Increased tone with tenderness to palpation 2/4: Pain with wincing bilateral lumbar paraspinals, superior glutes PT-OP-K Range of Motion Start: 04/14/24 14:50 Freq: Status: Active Protocol: Document 04/14/24 09:00 DCW (Rec: 04/14/24 15:09 DCW [id number]) Lumbar Spine Range of Motion Lumbar Spine Active Degrees Testing Position Standing Flexion 40 Extension 20 Lateral Flexion Left 59 Lateral Flexion Right 56 ROM Limitations Bony Restriction,Muscle Tone, Pain Comments Lateral flexion measured in cm from fingertips to floor PT-OP-M Strength Start: 04/14/24 14:50 Freq: Status: Active Protocol: Document 04/14/24 09:00 DCW (Rec: 04/14/24 15:09 DCW [id number]) Hip Strength Hip Manual Muscle Testing Right Flexion (L2) 4 Good Extension (S1) 4- Good- Abduction 3+ Fair+ Adduction 4- Good- External Rotation 4 Good Internal Rotation 4 Good Left Flexion (L2) 4 Good Extension (S1) 4 Good Abduction 3+ Fair+ Adduction 4- Good- External Rotation 4 Good Internal Rotation 4 Good Knee Strength Knee Manual Muscle Testing Right Flexion (S2) 4+ Good+ Extension (L3) 4+ Good+ Left Flexion (S2) 4+ Good+ Extension (L3) 4+ Good+ Ankle/Foot Strength Ankle and Foot Manual Muscle Testing Right Dorsiflexion (L4) 4+ Good+ Left Dorsiflexion (L4) 4+ Good+ PT-OP-T Assessment and Plan Start: 04/14/24 14:50 Freq: Status: Active Protocol: Document 09/25/24 12:11 DCW (Rec: 09/25/24 12:11 DCW [id number]) Physical Therapy Assessment Assessment Summary Assessment Pt canceled majority of appointments, and has not been seen in more than four months , and POC has . Pt will require a new referral in order to return to skilled PT in the future. Physical Therapy Plan Discharge Physical Therapy Discharge Reasons No Longer Attending PT
== END 2024-09-29 08:31 | disposition home or self-care (01) ==
LOC: PHYS 11:30
PROVIDERS: Family Provider Family Medicine; PCP Family Medicine; Referring Provider Orthopaedic Surgery Orthopaedic Surgery of the Spine; Visit Provider Orthopaedic Surgery Orthopaedic Surgery of the Spine
DX: Z98.1 Arthrodesis status (principal); M48.061 Spinal stenosis, lumbar region without neurogenic claudication; M25.69 Stiffness of other specified joint, not elsewhere classified
CPT/HCPCS: 97110; 97140; 97161; 97530; 97535

== ENCOUNTER → 2025-01-16 07:12 | Outpatient (CLI) | payer OTHER, SELFPAY ==
[2024-01-03 08:08] VITALS: BMI 23.6
--- NOTE | 2025-01-16 07:13 | DI.MRI.S_ITS ---
PROCEDURE: MR LUMBAR SPINE WO CON INDICATIONS: Lower back pain TECHNIQUE: Noncontrast sagittal T1 spin echo and T2 fast echo, sagittal STIR, and T2 fast spin echo through the lumbar spine. In cases with scoliosis, additional coronal T2 fast spin echo may be performed. COMPARISON: [facility], MR, MR LUMBAR SPINE WO CON, 09/30/2022, 7:47. FINDINGS: Image quality: Excellent. Alignment and Curvature: There is straightening of normal lumbar lordosis. Bone Marrow: Patient is status post transpedicular fusion of lower lumbar spine at L4 through S1 levels. No gross marrow edema. No acute vertebral body compression fractures. Spinal Cord: Conus medullaris terminates at the L1 level. Visualized cord demonstrates normal signal and size. Paraspinous Soft Tissues: No paravertebral masses. T12-L1: Normal appearance. L1-L2: There is loss of disc height and disc desiccation. Broad-based disc bulge and right lateral disc bulge with bilateral facet arthrosis is seen causing mild central canal stenosis, moderate to severe right-sided neural foraminal narrowing and mild left-sided neural foraminal narrowing L2-L3: There is loss of disc height and disc desiccation. Broad-based disc bulge and right lateral disc herniation with moderate to severe right-sided neural foraminal narrowing and moderate left-sided neural foraminal narrowing. Bulging discs likely compressing right L2 nerve root. L3-L4: Broad-based disc bulge and superimposed right lateral disc herniation . Bilateral facet arthrosis and hypertrophy of ligamentum flavum causing moderate central canal stenosis, moderate to severe right-sided neural foraminal narrowing and mild left-sided neural foraminal narrowing. Bulging disc likely contacting right L3 nerve root. L4-L5: Postsurgical changes and right laminectomy. Bilateral facet arthrosis is seen. No significant central canal stenosis. Left worse than right bilateral neural foraminal narrowing is noted with bulging disc likely contacting bilateral L4 nerve roots. L5-S1: Postsurgical changes and right-sided laminectomy. Bilateral facet arthrosis. No significant central canal stenosis. Left worse than right bilateral neural foraminal narrowing is seen with bulging disc likely contacting bilateral L5 nerve roots. IMPRESSION: 1. Postfusion changes and right laminectomy at L4-5 and L5-S1 levels. Straightening of normal lumbar lordosis. No acute vertebral body compression fracture or significant spondylolisthesis. 2. Multilevel spondylitic changes and bilateral facet arthrosis throughout at L1-2 through L3-4 levels causing various degrees of central canal stenosis and right worse than left bilateral neural foraminal narrowing as described above. 3. Bilateral facet arthrosis at L4-5 and L5-S1 levels causing left worse than right bilateral neural foraminal narrowing without significant central canal stenosis. 4. No gross paraspinous soft tissue abnormalities. Dictated by: Wilder Lao M.D. on 01/16/2025 at 16:01 Approved by: Wilder Lao M.D. on 01/16/2025 at 16:12
--- NOTE | 2025-01-16 07:25 | DI.CT.S_ITS ---
PROCEDURE: CT LUMBAR SPINE WO CON INDICATIONS: LUMBAR STENOSIS TECHNIQUE: Noncontrast 3 mm thick sections acquired from the T12 level to the sacrum. Sagittal and coronal reformats were constructed. For radiation dose reduction, the following was used: automated exposure control. COMPARISON: [facility], CT, CT LUMBAR SPINE WO CON, 04/28/2024, 7:59. FINDINGS: Image quality: Excellent. Bones: Patient is status post posterior fusion at L4 through S1 levels with surgical hardware and intervertebral spacer in place. Right-sided laminectomy at L4-5 and L5-S1 levels are also seen. There is straightening of normal lumbar lordosis unchanged from prior study. No gross hardware loosening or failure. No acute vertebral body compression fractures. No suspicious lytic or blastic bony lesions. Loss of disc height, degenerative endplate changes, dorsal disc osteophyte complex formation and bilateral facet arthrosis are noted at T12-L1, L1-2, L2-3 and L3-4 levels. There is [id number]-[id number] central canal stenosis and bilateral neural foraminal narrowing more notably at L1-2 and L2-3 levels. Bilateral facet arthrosis at L4-5 and L5-S1 levels are also seen with [id number] bilateral neural foraminal narrowing. Soft tissues: No retroperitoneal masses or hematomas. Visualized aorta is normal in caliber. Moderate atherosclerotic disease throughout abdominal aorta and bilateral iliac arteries are seen. IMPRESSION: 1. Stable post fusion changes at L4 through S1 levels with straightening of normal cervical lordosis. No gross hardware loosening or failure. No acute fracture or dislocation. No suspicious bony lesions. 2. Multilevel spondylitic changes and bilateral facet arthrosis again seen throughout lumbar spine causing various degrees of central canal stenosis and bilateral neural foraminal narrowing as described above unchanged or slightly progressed compared to previous study, please correlate with MRI of lumbar spine report from the same day. Dictated by: Wilder Lao M.D. on 01/16/2025 at 15:53 Approved by: Wilder Lao M.D. on 01/16/2025 at 16:01
== END ==
LOC: CT 07:12
PROVIDERS: Family Provider Family Medicine; PCP Family Medicine; Referring Provider Orthopaedic Surgery Orthopaedic Surgery of the Spine; Visit Provider Orthopaedic Surgery Orthopaedic Surgery of the Spine
DX: M48.062 Spinal stenosis, lumbar region with neurogenic claudication (principal); M48.07 Spinal stenosis, lumbosacral region; M47.815 Spondylosis without myelopathy or radiculopathy, thoracolumbar region; M47.816 Spondylosis without myelopathy or radiculopathy, lumbar region; M47.817 Spondylosis without myelopathy or radiculopathy, lumbosacral region; Z98.1 Arthrodesis status
CPT/HCPCS: 72131; 72148

== ENCOUNTER → 2025-01-23 08:03 | Outpatient (CLI) | payer OTHER, SELFPAY ==
[2024-01-03 08:08] VITALS: BMI 23.6
--- NOTE | 2025-01-23 08:06 | DI.MG.S_ITS ---
MM screening mammo BI: 01/23/2025. BI-RADS: 1 CLINICAL: 69-year old female for bilateral screening mammogram. Tyrer-Cuzick lifetime risk of 1.4%. No personal or first-degree family history of breast cancer. Current reported family history of breast cancer: maternal grandmother. The patient had a prior left breast biopsy. PRIOR EXAMS 08/26/2023, 06/09/2022, 04/29/2021, 08/23/2019, 11/05/2017, 08/30/2015. MAMMOGRAPHY TECHNIQUE: 2D and 3D (tomosynthesis) digital mammographic views obtained, with additional images as needed for full coverage. Current study was also evaluated with a Computer Aided Detection (CAD) system. DENSITY A. The breasts are almost entirely fatty. MAMMOGRAPHY FINDINGS Bilateral: No suspicious mass, asymmetry, microcalcification, or other abnormality seen. IMPRESSION: * No evidence of malignancy. RECOMMENDATIONS Bilateral * Annual screening mammography. OVERALL ASSESSMENT CATEGORY BI-RADS-1: Negative. The [employer] recommends annual screening mammography beginning at age 40 for women with average risk of breast cancer. ELECTRONICALLY SIGNED: Meng Schmid M.D. on 01/23/2025 at 10:14:49 AM PT Interpreting Station ID: [id number]
== END ==
PROVIDERS: Family Provider Family Medicine; PCP Family Medicine; Referring Provider Family Medicine; Visit Provider Family Medicine
DX: Z12.31 Encounter for screening mammogram for malignant neoplasm of breast (principal); R92.313 Mammographic fatty tissue density, bilateral breasts; Z80.3 Family history of malignant neoplasm of breast
CPT/HCPCS: 77063; 77067

== ENCOUNTER → 2025-06-26 07:55 | Outpatient (CLI) | payer OTHER, SELFPAY ==
[2024-01-03 08:08] VITALS: BMI 23.6
--- NOTE | 2025-06-26 07:58 | DI.CT.S_ITS ---
PROCEDURE: CT LUNG LOW DOSE SCREENING INDICATIONS: lung screening TECHNIQUE: Noncontrast 2.0-2.5 mm thick sections acquired from the pulmonary apices to the posterior costophrenic angles. 7 mm thick axial MIP, and 5 mm coronal and sagittal reformats were then acquired. For radiation dose reduction, the following was used: automated exposure control, adjustment of mA and/or kV according to patient size. COMPARISON: [facility], CT, CT LUNG LOW DOSE SCREENING, 03/29/2024, 7:23. FINDINGS: Image quality: Diagnostic. Lower Neck: No enlarged lymph nodes. Thyroid: No thyroid nodules which require sonographic follow up, per consensus guidelines. Axillae: No enlarged lymph nodes. Chest Wall: Unremarkable. Bones: No aggressive appearing bony lesions. Lungs and Pleura: No pneumothorax or pleural effusions. No consolidations or suspicious pulmonary nodules. Bibasilar scarring/atelectasis are seen. Mild emphysema. Heart: Heart size is normal. No pericardial effusion. Qqwl-mp-bixmavvs amount of atherosclerotic calcifications are noted involving LAD and thoracic aorta. Thoracic Vessels: The aorta and pulmonary arteries demonstrate normal size. Mediastinum and Sheila: No enlarged lymph nodes. Esophagus: No wall thickening. No hiatal hernia. Upper Abdomen: Visualized upper abdomen solid organs and bowel loops appear normal. IMPRESSION: 1. No suspicious pulmonary nodules. LUNG-RADS 1; continued annual screening, if eligible. Clinically Significant Non-pulmonary Findings: [id number] atherosclerotic calcifications in LAD and thoracic aorta not significantly changed from 2023 study. Dictated by: Wilder Lao M.D. on 06/26/2025 at 9:32 Approved by: Wilder Lao M.D. on 06/26/2025 at 9:36
== END ==
LOC: CT 07:57
PROVIDERS: Family Provider Family Medicine; PCP Family Medicine; Referring Provider Family Medicine; Visit Provider Family Medicine
DX: Z12.2 Encounter for screening for malignant neoplasm of respiratory organs (principal); J98.4 Other disorders of lung; J98.11 Atelectasis; J43.9 Emphysema, unspecified; I25.10 Atherosclerotic heart disease of native coronary artery without angina pectoris; I70.0 Atherosclerosis of aorta; F17.210 Nicotine dependence, cigarettes, uncomplicated
CPT/HCPCS: 36415; 71271; 80061; 84439; 84443

== ENCOUNTER → 2025-06-26 08:31 | Outpatient (CLI) | payer OTHER, SELFPAY ==
[2024-01-03 08:08] VITALS: BMI 23.6
[2025-06-26 09:34] LABS: Cholesterol 162 mg/dL (140-199); HDL Cholesterol 59 mg/dL (40-60); Triglycerides 156 mg/dL (35-150)
[2025-06-26 09:48] LABS: Free T4, Direct Thyroxine 0.88 ng/dL (0.78-2.19)
[2025-06-26 10:01] LABS: Thyroid Stimulating Hormone 0.085 uIU/mL (0.47-4.68)
== END ==
PROVIDERS: Family Provider Family Medicine; PCP Family Medicine; Referring Provider Family Medicine; Visit Provider Family Medicine
DX: E78.00 Pure hypercholesterolemia, unspecified (principal); R79.89 Other specified abnormal findings of blood chemistry
CPT/HCPCS: 36415; 80061; 84439; 84443